=== PATIENT | male | born 1945 | race Caucasian/White ===

== ENCOUNTER 2020-03-13 10:09 | Outpatient (REF) | payer MEDICARE, OTHER, SELFPAY | END 2020-03-13 10:10 | disposition home or self-care (01) | LOC: HO.LAB 10:09 | PROVIDERS: Visit Provider Internal Medicine | DX: Z20.828 Contact with and (suspected) exposure to other viral communicable diseases (principal) | CPT/HCPCS: U0003 ==

== ENCOUNTER 2021-07-15 06:24 | Day surgery (SDC) | payer MEDICARE, OTHER, SELFPAY ==
[2021-07-09 11:16] VITALS: BMI 26.8
--- NOTE | 2021-07-11 12:48 | MHC.SHP ---
Pre-Procedural Eval Section A Date of Service: 07/11/21 The patient is an INPATIENT: No Changes since office visit: No Cold of Flu in the past 2 weeks, No New Medical Problems, No Changes in Medication and No Patient answered all questions The History & Physical has been completed within 30 days and I have reviewed it.: Yes Section B Chief Complaint: cataract right eye Allergies: Allergies Allergy/AdvReac Type Severity Reaction Status Date / Time thiopental [From Pentothal] AdvReac During Verified 07/09/21 11:13 Dental Surgery- Could not wake up - years ago Black fly Bites Allergy Swelling Uncoded 07/09/21 11:14 Plan Diagnosis/Plan: Unchanged I have reviewed the history and physical and performed a pertinent physical examination on my patient. No changes have occurred unless specified.
[2021-07-15 07:03] VITALS: BP 151/61; PULSE 61; RESP 18; TEMP 36.2; O2SAT 98
--- NOTE | 2021-07-15 07:10 | HO.ANESPROP2 ---
HPI - Anesthesia Eval Consult details Narrative: Right eye cataract [facility] Past Medical History Medical History (Updated 07/09/21 @ 09:01 by Joycelyn Kilpatrick RN) Aortic valve stenosis Bilateral cataracts CAD (coronary artery disease) GERD (gastroesophageal reflux disease) HTN (hypertension) Mixed hyperlipidemia Myocardial infarction Family History Family history of problems with anesthesia: No Surgical History Surgical History (Updated 07/09/21 @ 09:01 by Joycelyn Kilpatrick RN) Hx of colonoscopy S/P triple vessel bypass History of Problems with Anesthesia: No Social History Social History Are you a primary healthcare administration intern to a significant other at home: No Do you presently have visiting nurse or other home services: No Patient Tobacco Use Status: Former Tobacco user Quit Date: 25 yrs ago Tobacco use type: Cigarette Use of substances other than those prescribed or required for medical reasons: No Have you been hit, kicked, punched, or otherwise hurt by someone within the past year? If so, by whom?: No Are you DNR?: No Advance Directives: No Advance Directives Information Provided: No Advance Directives on File: No Recently lost weight without trying: No Eating poorly because of decreased appetite: No Nutrition Risks: No Nutritional Risk Meds Allergies Allergy/AdvReac Type Severity Reaction Status Date / Time thiopental [From Pentothal] AdvReac During Verified 07/09/21 11:13 Dental Surgery- Could not wake up - years ago Black fly Bites Allergy Swelling Uncoded 07/09/21 11:14 Active Medications: Current Medications Cyclopentolate HCl (Cyclopentolate 1 % Ophth Estefani 2 Ml Drpbtl) 1 drop EYE-RIGHT Q5M FELIX Stop: 07/15/21 07:26 Lactated Ringer's (Lr) 500 mls @ 50 mls/hr IVCONT .Q10H FELIX Ketorolac Tromethamine (Ketorolac Tromethamine 0.5% Op 3 Ml Drops) 1 drop EYE-RIGHT Q5M FELIX Stop: 07/15/21 07:26 Moxifloxacin HCl (Moxifloxacin Hcl 0.5 % Oph Estefani 3 Ml Drpbtl) 1 drop EYE-RIGHT POSTOP ONE Stop: 07/15/21 07:03 Phenylephrine HCl (Phenylephrine Hcl 2.5% Oph Estefani 2 Ml Bottle) 1 drop EYE-RIGHT Q5M FELIX Stop: 07/15/21 07:26 Povidone Iodine (Povidone Iodine 5 % Ophth Soln 30 Ml Bottle) 1 appl EYE-RIGHT PREOP PRN PRN Reason: Pre-Op Surgical Implant Prophy Tetracaine HCl (Tetracaine Hcl/Pf 0.5% Oph Estefani 4 Ml Drops) 1 drop EYE-RIGHT PREOP ONE Stop: 07/15/21 07:03 Triamcinolone Acetonide (Triamcinolone Acetonide 40 Mg/Ml Vial) 40 mg IM POSTOP ONE Stop: 07/15/21 07:03 Tropicamide (Tropicamide 1 % Ophth Estefani 3 Ml Btl) 1 drop EYE-RIGHT Q5M FELIX Stop: 07/15/21 07:26 Home Medications Medication Instructions Recorded Confirmed Last Taken Type aspirin 81 mg tablet,delayed 81 mg PO DAILY 07/09/21 07/09/21 Unknown History release atenolol 25 mg tablet 1 tab PO DAILY 07/09/21 07/09/21 Unknown History atorvastatin 40 mg tablet 1 tab PO DAILY 07/09/21 07/09/21 Unknown History famotidine 20 mg tablet 20 mg PO DAILY PRN 07/09/21 07/09/21 Unknown History Exam Exam Date and Time: July 15, 2021 0710 Height,Weight and Vital Signs: Height 6 ft Weight 89.811 kg Last Vital Signs Temp 97.2 F 07/15/21 07:03 Pulse 61 07/15/21 07:03 Resp 18 07/15/21 07:03 BP 151/61 H 07/15/21 07:03 Pulse Ox 98 07/15/21 07:03 Airway Mallampati Class: II TM Dist: >3cm Neck ROM: Full Loose/Missing/Broken Teeth: No Heart: rrr+s1s2 Lungs: cta b/l Assessment and Plan Final Anesthetic Review Family History of Problems with Anesthesia: No History of Problems with Anesthesia: No NPO: Yes ASA Class: III Final Preanesthetic Review: No Changes in Pt Med Stat, Meds/Allgs Chart Reviewed, Consent Obtained/Reviewed and Anes Risks/Benef Reviewed Patient Risk: Intermediate Procedure Risk: Low Assessment/Block/Sedation in SS: Assess/Block/Sedation-SS Anesthetic Plan Anesthetic Plan: MAC: and Agree w/ Assess. and Plan Disposition: Standard PACU
[2021-07-15] MEDS: Tetracaine HCl/PF 0.5% Oph Sol 4 ML DROPS 1 DROP EYE-RIGHT (07:11)
[2021-07-15] MEDS: Tropicamide 1 % Ophth Sol 3 ML BTL 1 DROP EYE-RIGHT ×3 (07:13→07:19)
[2021-07-15] MEDS: Lactated Ringers 500 ML 50 ML IVCONT (07:15)
[2021-07-15] MEDS: Phenylephrine HCL 2.5% Oph SoL 2 ML BOTTLE 1 DROP EYE-RIGHT ×3 (07:15→07:21)
--- NOTE | 2021-07-15 08:29 | P.PCNO_ITS ---
Ophthalmology Procedure Procedure Date of Service: 07/15/21 Ophthalmology Viscoelastic: Healon Duet Dual Pack Pro Ophthalmology Lenses: TECNIS [id number] (23.5) Procedure Notes: PREOPERATIVE DIAGNOSIS: Decreased visual acuity right eye secondary to cataract POSTOPERATIVE DIAGNOSIS: Same PROCEDURE: Right cataract extraction with multifocal intraocular lens insertion SURGEON: Ray Cruz M.D. ANESTHESIA: Topical/MAC ESTIMATED BLOOD LOSS: None COMPLICATIONS: None After obtaining informed consent, the patient was brought to the operating room suite and placed in the supine position. After adequate sedation per anesthesia, topical drops of Tetracaine were given to the right eye. The eye was then prepped and draped in the usual sterile fashion. The operating room microscope was then positioned over the operative eye and a lid speculum placed. A paracentesis was created. Viscoelastic was then instilled into the anterior chamber. A three plane incision was then created temporally, utilizing a 2.85 mm keratome. Capsulotomy forceps were then utilized to create a circular tear capsulotomy. Hydrodissection and hydrodelineation were carried out until adequate mobilization of the nucleus occurred. Phacoemulsification was then utilized to remove the dense central n ucleus followed by removal of the cortical material utilizing the automated aspiration irrigation unit. Viscoelastic was instilled into the posterior capsular bag followed by placement of a multifocal posterior chamber intraocular lens without difficulty. The residual Viscoelastic was then removed utilizing the automated IA machine. The wound was checked and found to be watertight. The patient tolerated the procedure well and the lid speculum was removed. Intracameral injection of Vigamox 0.1 mL followed by a subtenon injection of Kenalog-40 0.2 mL were administered. The patient will be seen in the a.m.
[2021-07-15 09:06] VITALS: BP 140/70; PULSE 58; RESP 16; TEMP 36.3; O2SAT 98
== END 2021-07-15 09:09 | disposition home or self-care (01) ==
PROVIDERS: Visit Provider Ophthalmology
PROC: (CPT 66984; principal; 2021-07-15 08:20)
DX: H25.11 Age-related nuclear cataract, right eye (principal); H52.4 Presbyopia; Z83.511 Family history of glaucoma; I25.110 Atherosclerotic heart disease of native coronary artery with unstable angina pectoris; Z95.1 Presence of aortocoronary bypass graft; I10 Essential (primary) hypertension; Z79.899 Other long term (current) drug therapy; Z79.82 Long term (current) use of aspirin; Z87.891 Personal history of nicotine dependence
CPT/HCPCS: 66984; J2250; J3010; J3300; V2788

== ENCOUNTER 2021-07-29 07:34 | Day surgery (SDC) | payer MEDICARE, OTHER, SELFPAY ==
[2021-07-09 11:26] VITALS: BMI 26.8
--- NOTE | 2021-07-26 08:53 | HO.ANESPROP2 ---
Documented by User: Ivonne Osei NP 07/26/21 08:54 HPI - Anesthesia Eval Consult details Narrative: 76yo M for Left Cataract Extraction IOL Insertion PCP cleared Right eye 07/15/21 with MAC: Fent 25, Midaz 2 PMFSH Past Medical History Medical History Aortic valve stenosis Bilateral cataracts CAD (coronary artery disease) GERD (gastroesophageal reflux disease) HTN (hypertension) Mixed hyperlipidemia Myocardial infarction Family History Family history of problems with anesthesia: No Surgical History Surgical History (Updated 07/09/21 @ 09:01 by Joycelyn Kilpatrick, ALLAN) Hx of colonoscopy S/P triple vessel bypass History of Problems with Anesthesia: No Social History Social History Are you a primary hemodialysis patient care specialist to a significant other at home: No Do you presently have visiting nurse or other home services: No Patient Tobacco Use Status: Former Tobacco user Quit Date: 25 yrs ago Tobacco use type: Cigarette Use of substances other than those prescribed or required for medical reasons: No Have you been hit, kicked, punched, or otherwise hurt by someone within the past year? If so, by whom?: No Are you DNR?: No Advance Directives: No Advance Directives Information Provided: No Advance Directives on File: No Recently lost weight without trying: No Eating poorly because of decreased appetite: No Nutrition Risks: No Nutritional Risk Meds Allergies Allergy/AdvReac Type Severity Reaction Status Date / Time thiopental [From Pentothal] AdvReac Severe During Verified 07/15/21 07:29 Dental Surgery- Could not wake up - years ago Black fly Bites Allergy Swelling Uncoded 07/09/21 11:14 Home Medications Medication Instructions Recorded Confirmed Last Taken Type aspirin 81 mg tablet,delayed 81 mg PO DAILY 07/09/21 07/09/21 Unknown History release atenolol 25 mg tablet 1 tab PO DAILY 07/09/21 07/09/21 Unknown History atorvastatin 40 mg tablet 1 tab PO DAILY 07/09/21 07/09/21 Unknown History famotidine 20 mg tablet 20 mg PO DAILY PRN 07/09/21 07/09/21 Unknown History Exam Exam Date and Time: July 26, 2021 0853 Height,Weight and Vital Signs: Height 6 ft Weight 89.811 kg Assessment and Plan Assessment Anesthesia Assessment: Chart Reviewed Final Anesthetic Review Family History of Problems with Anesthesia: No History of Problems with Anesthesia: No Documented by User: Jose Proctor MD 07/29/21 07:20 [facility] Past Medical History Medical History Aortic valve stenosis Bilateral cataracts CAD (coronary artery disease) GERD (gastroesophageal reflux disease) HTN (hypertension) Mixed hyperlipidemia Myocardial infarction Surgical History Surgical History (Updated 07/09/21 @ 09:01 by Joycelyn Kilpatrick RN) Hx of colonoscopy S/P triple vessel bypass Social History Social History Are you a primary hemodialysis patient care specialist to a significant other at home: No Do you presently have visiting nurse or other home services: No Patient Tobacco Use Status: Former Tobacco user Quit Date: 25 yrs ago Tobacco use type: Cigarette Use of substances other than those prescribed or required for medical reasons: No Have you been hit, kicked, punched, or otherwise hurt by someone within the past year? If so, by whom?: No Are you DNR?: No Advance Directives: No Advance Directives Information Provided: No Advance Directives on File: No Recently lost weight without trying: No Eating poorly because of decreased appetite: No Nutrition Risks: No Nutritional Risk Meds Allergies Allergy/AdvReac Type Severity Reaction Status Date / Time thiopental [From Pentothal] AdvReac Severe During Verified 07/15/21 07:29 Dental Surgery- Could not wake up - years ago Black fly Bites Allergy Swelling Uncoded 07/09/21 11:14 Home Medications Medication Instructions Recorded Confirmed Last Taken Type aspirin 81 mg tablet,delayed 81 mg PO DAILY 07/09/21 07/09/21 Unknown History release atenolol 25 mg tablet 1 tab PO DAILY 07/09/21 07/09/21 Unknown History atorvastatin 40 mg tablet 1 tab PO DAILY 07/09/21 07/09/21 Unknown History famotidine 20 mg tablet 20 mg PO DAILY PRN 07/09/21 07/09/21 Unknown History Exam Airway Mallampati Class: II TM Dist: >3cm Neck ROM: Full Loose/Missing/Broken Teeth: No Heart: rrr+s1s2 Lungs: cta b/l Assessment and Plan Assessment Anesthesia Assessment: Anesthesia Plan Discussed Final Anesthetic Review NPO: Yes ASA Class: III Final Preanesthetic Review: No Changes in Pt Med Stat, Meds/Allgs Chart Reviewed, Consent Obtained/Reviewed and Anes Risks/Benef Reviewed Patient Risk: Intermediate Procedure Risk: Low Assessment/Block/Sedation in SS: Assess/Block/Sedation-SS Anesthetic Plan Anesthetic Plan: MAC: and Agree w/ Assess. and Plan Disposition: Standard PACU
--- NOTE | 2021-07-26 13:18 | MHC.SHP ---
Pre-Procedural Eval Section A Date of Service: 07/26/21 The patient is an INPATIENT: No Changes since office visit: No Cold of Flu in the past 2 weeks, No New Medical Problems, No Changes in Medication and No Patient answered all questions The History & Physical has been completed within 30 days and I have reviewed it.: Yes Section B Chief Complaint: cataract left eye Allergies: Allergies Allergy/AdvReac Type Severity Reaction Status Date / Time thiopental [From Pentothal] AdvReac Severe During Verified 07/15/21 07:29 Dental Surgery- Could not wake up - years ago Black fly Bites Allergy Swelling Uncoded 07/09/21 11:14 Plan Diagnosis/Plan: Unchanged I have reviewed the history and physical and performed a pertinent physical examination on my patient. No changes have occurred unless specified.
[2021-07-29] MEDS: Tetracaine HCl/PF 0.5% Oph Sol 4 ML DROPS 1 DROP EYE-LEFT (07:42)
[2021-07-29 07:50] VITALS: BP 172/84; PULSE 64; RESP 16; TEMP 36.3; O2SAT 97
[2021-07-29] MEDS: Lactated Ringers 500 ML 50 ML IV (07:58)
[2021-07-29] MEDS: Tropicamide 1 % Ophth Sol 3 ML BTL 1 DROP EYE-LEFT ×3 (08:00→08:07)
[2021-07-29] MEDS: Phenylephrine HCL 2.5% Oph SoL 2 ML BOTTLE 1 DROP EYE-LEFT ×3 (08:02→08:10)
--- NOTE | 2021-07-29 08:48 | HO.PNOPHT ---
Ophthalmology Procedure Procedure Date of Service: 07/29/21 Ophthalmology Viscoelastic: Healon Duet Dual Pack Pro Ophthalmology Lenses: TECNIS [id number] (24.5) Procedure Notes: PREOPERATIVE DIAGNOSIS: Decreased visual acuity left eye secondary to cataract POSTOPERATIVE DIAGNOSIS: Same PROCEDURE: Left cataract extraction with multifocal intraocular lens insertion SURGEON: Ray Cruz M.D. ANESTHESIA: Topical/MAC ESTIMATED BLOOD LOSS: None COMPLICATIONS: None After obtaining informed consent, the patient was brought to the operation room suite and placed in the supine position. After adequate sedation per anesthesia, topical drops of Tetracaine were given to the left eye. The eye was then prepped and draped in the usual sterile fashion. The operating room microscope was then positioned over the operative eye and a lid speculum placed. A paracentesis was created. Viscoelastic was then instilled into the anterior chamber. A three plane incision was then created temporally, utilizing a 2.85 mm keratome. Capsulotomy forceps were then utilized to create a circular tear capsulotomy. Hydrodissection and hydrodelineation were carried out until adequate mobilization of the nucleus occurred. Phacoemulsification was then utilized to remove the dense central nucleus followed by removal of the cortical material utilizing the automated aspiration irrigation unit. Viscoelastic was instilled into the posterior capsular bag followed by placement of a multifocal posterior chamber intraocular lens without difficulty. The residual Viscoelastic was then removed utilizing the automated IA machine. The wound was check and found to be watertight. The patient tolerated the procedure well and the lid speculum was removed. Intracameral injection of Vigamox 0.1 mL followed by a subtenon injection of Kenalog-40 0.2 mL were administered. The patient will be seen in the a.m.
[2021-07-29 09:08] VITALS: BP 151/90; PULSE 56; RESP 18; TEMP 36.3; O2SAT 97
== END 2021-07-29 09:28 | disposition home or self-care (01) ==
PROVIDERS: Visit Provider Ophthalmology
PROC: (CPT 66984; principal; 2021-07-29 08:40)
DX: H25.12 Age-related nuclear cataract, left eye (principal); H52.4 Presbyopia; H31.002 Unspecified chorioretinal scars, left eye; Z83.511 Family history of glaucoma; I25.10 Atherosclerotic heart disease of native coronary artery without angina pectoris; Z95.1 Presence of aortocoronary bypass graft; I25.2 Old myocardial infarction; E78.2 Mixed hyperlipidemia; K21.9 Gastro-esophageal reflux disease without esophagitis; R73.01 Impaired fasting glucose; I10 Essential (primary) hypertension; Z79.899 Other long term (current) drug therapy; Z79.82 Long term (current) use of aspirin; Z87.891 Personal history of nicotine dependence
CPT/HCPCS: 66984; J2250; J3010; J3300; V2788

== ENCOUNTER 2022-04-30 12:16 | Outpatient (REF) | payer MEDICARE, OTHER, SELFPAY ==
--- NOTE | ~2022-04-30 | XR_ITS ---
EXAMINATION: KNEE X-RAY CLINICAL INFORMATION: Pain COMPARISON: None TECHNIQUE: Standing AP view of both knees and lateral and sunrise view of the left knee FINDINGS: Left: There is varus angulation. There is arthritis at the medial femoral tibial and patellofemoral joints. There is an osteophyte at the quadriceps tendon insertion to the patella. There is a small to moderate joint effusion. No fracture or dislocation. Standing AP view of the right knee demonstrates mild arthritis at the medial femoral tibial joint XR/XR knee LT 2V IMPRESSION: Left knee: Arthritis, joint effusion and varus angulation.
--- NOTE | ~2022-04-30 | XR_ITS ---
EXAMINATION: KNEE X-RAY CLINICAL INFORMATION: Pain COMPARISON: None TECHNIQUE: Standing AP view of both knees and lateral and sunrise view of the left knee FINDINGS: Left: There is varus angulation. There is arthritis at the medial femoral tibial and patellofemoral joints. There is an osteophyte at the quadriceps tendon insertion to the patella. There is a small to moderate joint effusion. No fracture or dislocation. Standing AP view of the right knee demonstrates mild arthritis at the medial femoral tibial joint XR/XR knee standing BI IMPRESSION: Left knee: Arthritis, joint effusion and varus angulation.
== END 2022-04-30 12:17 | disposition home or self-care (01) ==
LOC: HO.HOSX 12:16
PROVIDERS: Visit Provider Physician Assistant
DX: M17.12 Unilateral primary osteoarthritis, left knee (principal); M25.561 Pain in right knee
CPT/HCPCS: 20610; 73560; 73565; 99202; J1040

== ENCOUNTER 2022-08-11 08:07 | Outpatient (REF) | payer MEDICARE, OTHER, SELFPAY ==
--- NOTE | ~2022-08-11 | XR_ITS ---
EXAMINATION: XR ANKLE, LEFT CLINICAL INFORMATION: Pain. COMPARISON: None available. TECHNIQUE: AP, lateral, and mortise views of the left ankle. FINDINGS: Bony alignment and mineralization are normal. The ankle mortise is intact. No fracture, dislocation or left ankle joint effusion is seen. Boehler's angle is normal. There are small posterior and moderate plantar calcaneal spurs. No focal soft tissue swelling, gas or foreign body is seen. XR/XR ankle LT min 3V IMPRESSION: 1. No fracture, dislocation or left ankle joint effusion is seen. 2. There are calcaneal spurs.
== END 2022-08-11 08:08 | disposition home or self-care (01) ==
LOC: HO.HOSX 08:07
PROVIDERS: Visit Provider Physician Assistant
DX: M17.12 Unilateral primary osteoarthritis, left knee (principal)
CPT/HCPCS: 20610; 73610; 99212; J1040

== ENCOUNTER → 2022-09-05 12:52 | Outpatient (BNVA) | payer MEDICARE, OTHER, SELFPAY | PROVIDERS: PCP Internal Medicine; Visit Provider Physician Assistant ==

== ENCOUNTER 2022-09-12 11:00 | Outpatient (RCR) | payer OTHER, MEDICARE, SELFPAY | END 2022-09-18 12:50 | disposition home or self-care (01) | LOC: HO.PT 11:00 | PROVIDERS: PCP Internal Medicine; Visit Provider Internal Medicine | DX: S13.4XXA Sprain of ligaments of cervical spine, initial encounter (principal) | CPT/HCPCS: 97014; 97110; 97112; 97140; 97162; 97530 ==

== ENCOUNTER 2022-09-14 15:45 | Emergency (ER) | payer MEDICARE, OTHER, SELFPAY ==
--- NOTE | ~2022-09-14 | CT_ITS ---
EXAMINATION: CT ANGIOGRAM HEAD CT ANGIOGRAM NECK CLINICAL INFORMATION: Reason for Exam b/l blurry vision, vallejo, neck pain COMPARISON: Earlier same day noncontrast head CT TECHNIQUE: Initial noncontrast singeing torch operator imaging of the head and neck was performed. Comparison is made with noncontrast head CT from earlier today. Test bolus sequences followed by intravenous administration 70 mL of Omnipaque 350. Helical imaging was performed in the axial plane from the aortic arch to the skull vertex. Delayed postcontrast imaging of the head was also performed. The data was processed at the industrial engineering technologist's workstation for generation of MIP sequences. Angled MIPs and volume rendered reformatted images were also generated at an offline 3D workstation. Stenoses are assessed in accordance with NASCET criteria unless otherwise indicated. DLP: 1619.61 mGy-cm This CT examination was performed using dose optimization techniques as appropriate, variously including the following: *Automated exposure control. *Adjustment of mA and/or kV according to patient size (this includes techniques or standardized protocols for targeted exams where dose is matched to indication/reason for exam; i.e. extremities or head). *Use of iterative reconstruction technique. FINDINGS: CT Head: There is no evidence of acute intracranial hemorrhage or edematous territorial infarction. There is no abnormal attenuation within the brain parenchyma. Shore-white matter differentiation is preserved. The ventricles are normal in size and configuration. No evidence for obstructive hydrocephalus. No abnormal mass effect or midline shift. No extra-axial fluid collections. No pathologic intra-axial enhancement or regional oligemia. No acute soft tissue or osseous abnormalities. The mastoid air cells and paranasal sinuses are clear. Several maxillary dental caries and periapical lucencies. CT Neck: The thyroid gland and remaining cervical soft tissues are within normal limits. Advanced multilevel cervical spondylosis. Anterolisthesis of C3 on C4 and C4 on C5. CT Upper Chest: The visualized lung apices and upper mediastinum are within normal limits. Status post median sternotomy and coronary artery bypass grafting. Neck CTA: Aortic Arch: Normal contour and caliber. Classic 3 vessel branching pattern of the aortic arch. Great Vessel Origins: No significant stenosis of the branch origins. Right Common Carotid Artery: No focal stenosis or occlusion. Cervical Right Internal Carotid Artery: Mild calcific atherosclerotic disease of the carotid bulb and proximal internal carotid artery without flow-limiting stenosis. Left Common Carotid Artery: No focal stenosis or occlusion. Cervical Left Internal Carotid Artery: Calcific atherosclerotic disease of the carotid bulb and proximal internal carotid artery causing less than 50% stenosis. Cervical Right Vertebral Artery: No focal stenosis or occlusion. Cervical Left Vertebral Artery: No focal stenosis or occlusion. Brain CTA: Intracranial Internal Carotid Arteries: Calcific atherosclerotic disease of the intracranial internal carotid arteries without occlusion or flow-limiting stenosis. 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 Normal opacification of the distal KULDIP segments. Left Anterior Cerebral Artery: Large left A1 segment supplies the bilateral A2 segments. Normal opacification of the distal KULDIP segments. Anterior Communicating Artery: Normal. Right Middle Cerebral Artery: Normal M1 segment of the MCA without focal stenosis or occlusion. Normal arborization of the distal segments. Left Middle Cerebral Artery: Normal M1 segment of the MCA without focal stenosis or occlusion. Normal arborization of the distal segments. Right Vertebral Artery: Normal V4 segment. Left Vertebral Artery: Normal V4 segment. Basilar Artery: The vertebrobasilar system is congenitally diminutive related to configuration of the CUT LACE MACHINE OPERATOR complexes. There is mild irregularity and stenosis of the proximal basilar artery. No high-grade narrowing. Normal appearance of the proximal superior cerebellar arteries. Right Posterior Cerebral Artery: configuration. Normal opacification of the distal CUT LACE MACHINE OPERATOR segments. Left Posterior Cerebral Artery: configuration. Normal opacification of the distal CUT LACE MACHINE OPERATOR segments. Normal opacification of the superior sagittal, straight, transverse, and sigmoid sinuses. CT/CT angio head neck stroke IMPRESSION: No arterial high grade stenosis or large vessel occlusion in the head or neck. Above impression was communicated to Dr Macias on 09/14/2022 at 4:24 PM
--- NOTE | ~2022-09-14 | CT_ITS ---
EXAMINATION: CT HEAD WITHOUT CONTRAST (STROKE PROTOCOL) CLINICAL INFORMATION: Stroke protocol. History of blurry vision, headache, neck pain. COMPARISON: None available. TECHNIQUE: Contiguous axial imaging was performed from the skull base to vertex without intravenous administration of contrast. This CT examination was performed using dose optimization techniques as appropriate, variously including the following: *Automated exposure control *Adjustment of mA and/or kV according to patient size (this includes techniques or standardized protocols for targeted exams where dose is matched to indication/reason for exam; i.e. extremities or head) *Use of iterative reconstruction technique DLP: 750 mGy-cm FINDINGS: No acute findings. The bhakta-white matter differentiation is well preserved. No evidence of an acute major vascular territory infarction. No intracranial hemorrhage, extra-axial fluid collection, focal mass effect or midline shift. The ventricles have normal size and configuration; no hydrocephalus. The brainstem and cerebellum have a normal appearance. The cerebellar tonsils are in normal position. The calvarium is intact. The visualized paranasal sinuses, mastoid air cells and middle ear cavities are well aerated. The orbits and temporomandibular joints are unremarkable. CT/CT head for stroke IMPRESSION: No acute intracranial pathology. This critical result was discussed with Dr. Wheeler at 4:07 pm on 09/14/2022. It was ascertained that the content and urgency of the report was understood at the time of direct communication.
[2022-09-14 15:47] VITALS: BP 177/84; PULSE 74; RESP 18; TEMP 36; O2SAT 96; BMI 27.1
--- NOTE | 2022-09-14 15:47 | ED.GENADULT ---
HPI - General Adult General Chief complaint: Eye Problems <DAMIAN Edmond - Last Filed: 09/14/22 16:04> Stated complaint: losing vision <DAMIAN Edmond - Last Filed: 09/14/22 16:04> Source: patient <Bess Macias MD - Last Filed: 09/14/22 19:39> Mode of arrival: ambulatory <Bess Macias MD - Last Filed: 09/14/22 19:39> History of Present Illness HPI narrative: 86-year-old male with significant history of CAD presents with concerns regarding sticky eyes and blurred vision that occurred after working outside in the [employer] and he became concerned that he might be having stroke-like symptoms. He denies any associated speech or hearing changes denies any new symptoms of numbness/tingling/weakness into a unilateral side. Patient denies any fever, chills, shortness of breath chest pain/palpitations. <Bess Macias MD - Last Filed: 09/14/22 19:39> Related Data Home medications: Home Medications Medication Instructions Recorded Confirmed aspirin 81 mg tablet,delayed 81 mg PO DAILY 07/09/21 07/09/21 release atenolol 25 mg tablet 1 tab PO DAILY 07/09/21 07/09/21 atorvastatin 40 mg tablet 1 tab PO DAILY 07/09/21 07/09/21 famotidine 20 mg tablet 20 mg PO DAILY PRN Acid Reflux 07/09/21 07/09/21 Previous Rx's Medication Instructions Recorded lorazepam 0.5 mg tablet (Ativan) 0.5 mg PO ONCE PRN anxiety #1 tab 09/05/22 <DAMIAN Edmond - Last Filed: 09/14/22 16:04> Allergies/adverse reactions: Allergies Allergy/AdvReac Type Severity Reaction Status Date / Time thiopental [From Pentothal] AdvReac Severe During Verified 09/14/22 15:47 Dental Surgery- Could not wake up - years ago Black fly Bites Allergy Swelling Uncoded 08/11/22 09:55 <DAMIAN Edmond - Last Filed: 09/14/22 16:04> Review of Systems Review of Systems: Pertinent positives and negatives as stated in HPI <Bess Macias MD - Last Filed: 09/14/22 19:39> PMFSH Past Medical History Source: nursing notes reviewed <Bess Macias MD - Last Filed: 09/14/22 19:39> Medical History: Medical History Aortic valve stenosis Bilateral cataracts CAD (coronary artery disease) GERD (gastroesophageal reflux disease) HTN (hypertension) Mixed hyperlipidemia Myocardial infarction <DAMIAN Edmond - Last Filed: 09/14/22 16:04> Surgical History: Surgical History Hx of colonoscopy S/P triple vessel bypass <DAMIAN Edmond - Last Filed: 09/14/22 16:04> Social History Social History: Social History Are you a primary care support representative to a significant other at home: No Do you presently have visiting nurse or other home services: No Alcohol intake: current Alcohol intake frequency: a few times a week Alcohol type: hard liquor Patient Tobacco Use Status: Former Tobacco user Quit Date: 25 yrs ago Tobacco use type: Cigarette Use of substances other than those prescribed or required for medical reasons: No Advance Directives: No Advance Directives Information Provided: No Current occupational status: retired Current occupation: right hand dominant <DAMIAN Edmond - Last Filed: 09/14/22 16:04> Physical Exam ED Vital Signs: Vital Signs - 24 hr 09/14/22 15:47 09/14/22 16:16 09/14/22 19:06 Temperature 96.8 F 98.1 F Pulse Rate 74 71 58 Respiratory Rate 18 Blood Pressure 177/84 H 142/77 H 172/83 H Pulse Oximetry 96 96 Oxygen Delivery Method Room Air Room Air 09/14/22 19:06 09/14/22 19:07 Temperature Pulse Rate 65 65 Respiratory Rate Blood Pressure 164/83 H 164/77 H Pulse Oximetry Oxygen Delivery Method BMI result Body Mass Index 27.1 <DAMIAN Edmond - Last Filed: 09/14/22 16:04> Vital Signs - 24 hr 09/14/22 15:47 09/14/22 16:16 09/14/22 19:06 Temperature 96.8 F 98.1 F Pulse Rate 74 71 58 Respiratory Rate 18 Blood Pressure 177/84 H 142/77 H 172/83 H Pulse Oximetry 96 96 Oxygen Delivery Method Room Air Room Air 09/14/22 19:06 09/14/22 19:07 Temperature Pulse Rate 65 65 Respiratory Rate Blood Pressure 164/83 H 164/77 H Pulse Oximetry Oxygen Delivery Method BMI result Body Mass Index 27.1 VITAL SIGNS: Reviewed. GENERAL: Well developed, well nourished, in no acute distress. HEAD: Normocephalic/atraumatic EYES: PERRLA, EOMI, no nystagmus EARS: Ext canals without abnormality NOSE: Nares patent bilateral OROPHARYNX: no oral lesions noted, posterior pharynx clear NECK: Supple, no adenopathy LUNGS: Normal breath sounds. No adventitious sounds or accessory muscle use. SpO2<97> CARDIOVASCULAR: Regular rate and rhythm without noted murmurs, no JVD or lower extremity edema. ABDOMEN: Soft, non-tender, non-distended with bowel sounds. MUSCULOSKELETAL: No tenderness, deformities, or effusions noted on gross inspection. EXTREMITIES: No cyanosis, clubbing or edema. SKIN: Inspection of the skin reveals no rashes NEUROLOGIC: Alert and oriented x 4. Strength and sensation to light touch were grossly intact x 4, no facial asymmetry, no pronator drift, cranial nerves 2-12 are grossly intact, patient ambulates with a steady gait there is no truncal ataxia. <Bess Macias MD - Last Filed: 09/14/22 19:39> Course Course Course Narrative: RME: 77-year-old male with a past medical history of aortic valve stenosis, CAD, GERD, HTN, HLD, SC, cataract surgery ', complaining of bilateral blurry vision > right since waking up from nap at 15:00. States he was transplant taking a tree this afternoon, took a nap at 13:00 and woke up at 15:00 with new symptoms. Reports acute on chronic neck pain which he is going to physical therapy for, most recently had physical therapy/neck manipulation on Thursday. Also reports headaches and intermittent foot paresthesias. Takes ASA. Reports recently saw electronic specialist who told patient to stop going to physical therapy until he obtains MRI Ambulating with steady gait, no focal weakness EKG, labs, head/CTA head and neck stroke protocol ordered, charge nurse and ED attending aware Full HPI, ROS and PE to be performed by primary ED provider. <DAMIAN Edmond - Last Filed: 09/14/22 16:04> Medications Administered Discontinued Medications Generic Name Dose Route Start Last Admin Trade Name Freq PRN Reason Stop Dose Admin Iohexol 100 ml 09/14/22 16:08 09/14/22 16:08 Iohexol 350 Mg/Ml 100 Ml Infus..Btl IV 09/14/22 16:09 70 ml ONCE ONE Administration <DAMIAN Edmond - Last Filed: 09/14/22 16:04> Medications Administered Discontinued Medications Generic Name Dose Route Start Last Admin Trade Name Freq PRN Reason Stop Dose Admin Iohexol 100 ml 09/14/22 16:08 09/14/22 16:08 Iohexol 350 Mg/Ml 100 Ml Infus..Btl IV 09/14/22 16:09 70 ml ONCE ONE Administration <Bess Macias MD - Last Filed: 09/14/22 19:39> Medical Decision Making Medical Decision Making MDM Narrative: 86-year-old male with history and clinical presentation not consistent with focal deficit, macular degeneration, acute angle glaucoma, cataracts. Basic labs, visual acuity and EKG were obtained. I reviewed all investigations to include imaging studies and my interpretation is that patient has visual difficulties are secondary to pine pollen exposure and there is no evidence to suggest infection, anemia, electrolyte abnormalities or intracranial abnormalities. Patient is otherwise stable, and ready to go home. He is discharged home in stable condition. <Bess Macias MD - Last Filed: 09/14/22 19:39> Differential Diagnosis Please see the discussion above <Bess Macias MD - Last Filed: 09/14/22 19:39> Lab Data Please see the discussion above <Bess Macias MD - Last Filed: 09/14/22 19:39> Result Diagrams: 09/14/22 16:51 09/14/22 16:51 <DAMIAN Edmond - Last Filed: 09/14/22 16:04> Labs: Lab Results 09/14/22 09/14/22 09/14/22 Range/Units 16:13 16:51 16:51 WBC 4.9 (4.8-10.8) X10*3/uL RBC 3.93 L (4.60-5.80) X10*6/uL Hgb 12.3 L (14.0-18.0) g/dl Hct 37.2 L (42.0-52.0) % MCV 94.7 (80.0-98.0) fL MCH 31.3 (27.0-33.0) pg MCHC 33.1 (31.0-36.0) g/dl RDW 12.7 (11.0-16.0) % Plt Count 160 (160-400) X10*3/uL MPV 9.1 L (9.4-12.4) fL Immature Gran % (Auto) 0.4 (0.0-0.4) % Neut % (Auto) 56.4 (45-73) % Lymph % (Auto) 29.5 (20-40) % Towner % (Auto) 12.1 H (2-11) % Eos % (Auto) 1.2 (0-4) % Baso % (Auto) 0.4 (0-2) % Lymph # (Auto) 1.4 (1.2-4.9) X10*3/uL Towner # (Auto) 0.6 (0.1-1.2) X10*3/uL Eos # (Auto) 0.1 (0.0-0.4) X10*3/uL Baso # (Auto) 0.0 (0.0-0.2) X10*3/uL Abs Immat Gran (auto) 0.02 (0.00-0.03) X10*3/uL Absolute Neuts (auto) 2.8 (2.0-8.3) x10*3/uL Absolute Nucleated RBC 0.000 (0.0-0.012) X10*3/uL Nucleated RBC % (auto) 0.0 (0.0-0.2) /100WBC PT 12.3 (10.0-13.1) SEC INR 1.1 (0.9-1.1) Sodium (135-145) mmol/L Potassium (3.3-5.1) mmol/L Chloride (96-108) mmol/L Carbon Dioxide (22-29) mmol/L Anion Gap (12-20) BUN (9-16) mg/dL Creatinine (0.5-1.4) mg/dL Estim Creat Clear Calc Estimated GFR POC Glucose 111 (60-115) mg/dL Random Glucose (60-115) mg/dL Calcium (8.4-10.2) mg/dL Magnesium (1.6-2.6) mg/dL Total Bilirubin (0.0-1.0) mg/dL Direct Bilirubin (0.0-0.5) mg/dL AST (5-37) U/L ALT (0-40) U/L Alkaline Phosphatase (39-117) U/L Troponin I High Sens (<3.5-35.0) ng/L Total Protein (6.5-8.0) g/dL Albumin (3.5-5.0) g/dL Urine Color Urine Appearance Urine pH (5.0-9.0) Ur Specific [place] (1.005-1.025) Urine Protein (Neg-Trace) mg/dL Urine Glucose (UA) (Negative) mg/dL Urine Ketones (Negative) mg/dL Urine Blood (Negative) Urine Nitrite (Negative) Ur Leukocyte Esterase (Negative) 09/14/22 09/14/22 09/14/22 Range/Units 16:51 16:51 19:11 WBC (4.8-10.8) X10*3/uL RBC (4.60-5.80) X10*6/uL Hgb (14.0-18.0) g/dl Hct (42.0-52.0) % MCV (80.0-98.0) fL MCH (27.0-33.0) pg MCHC (31.0-36.0) g/dl RDW (11.0-16.0) % Plt Count (160-400) X10*3/uL MPV (9.4-12.4) fL Immature Gran % (Auto) (0.0-0.4) % Neut % (Auto) (45-73) % Lymph % (Auto) (20-40) % Towner % (Auto) (2-11) % Eos % (Auto) (0-4) % Baso % (Auto) (0-2) % Lymph # (Auto) (1.2-4.9) X10*3/uL Towner # (Auto) (0.1-1.2) X10*3/uL Eos # (Auto) (0.0-0.4) X10*3/uL Baso # (Auto) (0.0-0.2) X10*3/uL Abs Immat Gran (auto) (0.00-0.03) X10*3/uL Absolute Neuts (auto) (2.0-8.3) x10*3/uL Absolute Nucleated RBC (0.0-0.012) X10*3/uL Nucleated RBC % (auto) (0.0-0.2) /100WBC PT (10.0-13.1) SEC INR (0.9-1.1) Sodium 140 (135-145) mmol/L Potassium 4.2 (3.3-5.1) mmol/L Chloride 105 (96-108) mmol/L Carbon Dioxide 28 (22-29) mmol/L Anion Gap 11 L (12-20) BUN 27 H (9-16) mg/dL Creatinine 1.05 (0.5-1.4) mg/dL Estim Creat Clear Calc 63.6 Estimated GFR > 60 POC Glucose (60-115) mg/dL Random Glucose 87 (60-115) mg/dL Calcium 8.4 (8.4-10.2) mg/dL Magnesium 2.1 (1.6-2.6) mg/dL Total Bilirubin 0.7 (0.0-1.0) mg/dL Direct Bilirubin 0.2 (0.0-0.5) mg/dL AST 21 (5-37) U/L ALT 16 (0-40) U/L Alkaline Phosphatase 84 (39-117) U/L Troponin I High Sens 7.3 (<3.5-35.0) ng/L Total Protein 5.9 L (6.5-8.0) g/dL Albumin 3.4 L (3.5-5.0) g/dL Urine Color Yellow Urine Appearance Clear Urine pH 6.5 (5.0-9.0) Ur Specific [place] >= 1.030 H (1.005-1.025) Urine Protein Negative (Neg-Trace) mg/dL Urine Glucose (UA) Negative (Negative) mg/dL Urine Ketones Negative (Negative) mg/dL Urine Blood Negative (Negative) Urine Nitrite Negative (Negative) Ur Leukocyte Esterase Negative (Negative) <Rita Pouliot, PA - Last Filed: 09/14/22 16:04> Lab Results 09/14/22 09/14/22 09/14/22 Range/Units 16:13 16:51 16:51 WBC 4.9 (4.8-10.8) X10*3/uL RBC 3.93 L (4.60-5.80) X10*6/uL Hgb 12.3 L (14.0-18.0) g/dl Hct 37.2 L (42.0-52.0) % MCV 94.7 (80.0-98.0) fL MCH 31.3 (27.0-33.0) pg MCHC 33.1 (31.0-36.0) g/dl RDW 12.7 (11.0-16.0) % Plt Count 160 (160-400) X10*3/uL MPV 9.1 L (9.4-12.4) fL Immature Gran % (Auto) 0.4 (0.0-0.4) % Neut % (Auto) 56.4 (45-73) % Lymph % (Auto) 29.5 (20-40) % Towner % (Auto) 12.1 H (2-11) % Eos % (Auto) 1.2 (0-4) % Baso % (Auto) 0.4 (0-2) % Lymph # (Auto) 1.4 (1.2-4.9) X10*3/uL Towner # (Auto) 0.6 (0.1-1.2) X10*3/uL Eos # (Auto) 0.1 (0.0-0.4) X10*3/uL Baso # (Auto) 0.0 (0.0-0.2) X10*3/uL Abs Immat Gran (auto) 0.02 (0.00-0.03) X10*3/uL Absolute Neuts (auto) 2.8 (2.0-8.3) x10*3/uL Absolute Nucleated RBC 0.000 (0.0-0.012) X10*3/uL Nucleated RBC % (auto) 0.0 (0.0-0.2) /100WBC PT 12.3 (10.0-13.1) SEC INR 1.1 (0.9-1.1) Sodium (135-145) mmol/L Potassium (3.3-5.1) mmol/L Chloride (96-108) mmol/L Carbon Dioxide (22-29) mmol/L Anion Gap (12-20) BUN (9-16) mg/dL Creatinine (0.5-1.4) mg/dL Estim Creat Clear Calc Estimated GFR POC Glucose 111 (60-115) mg/dL Random Glucose (60-115) mg/dL Calcium (8.4-10.2) mg/dL Magnesium (1.6-2.6) mg/dL Total Bilirubin (0.0-1.0) mg/dL Direct Bilirubin (0.0-0.5) mg/dL AST (5-37) U/L ALT (0-40) U/L Alkaline Phosphatase (39-117) U/L Troponin I High Sens (<3.5-35.0) ng/L Total Protein (6.5-8.0) g/dL Albumin (3.5-5.0) g/dL Urine Color Urine Appearance Urine pH (5.0-9.0) Ur Specific [place] (1.005-1.025) Urine Protein (Neg-Trace) mg/dL Urine Glucose (UA) (Negative) mg/dL Urine Ketones (Negative) mg/dL Urine Blood (Negative) Urine Nitrite (Negative) Ur Leukocyte Esterase (Negative) 09/14/22 09/14/22 09/14/22 Range/Units 16:51 16:51 19:11 WBC (4.8-10.8) X10*3/uL RBC (4.60-5.80) X10*6/uL Hgb (14.0-18.0) g/dl Hct (42.0-52.0) % MCV (80.0-98.0) fL MCH (27.0-33.0) pg MCHC (31.0-36.0) g/dl RDW (11.0-16.0) % Plt Count (160-400) X10*3/uL MPV (9.4-12.4) fL Immature Gran % (Auto) (0.0-0.4) % Neut % (Auto) (45-73) % Lymph % (Auto) (20-40) % Towner % (Auto) (2-11) % Eos % (Auto) (0-4) % Baso % (Auto) (0-2) % Lymph # (Auto) (1.2-4.9) X10*3/uL [place] # (Auto) (0.1-1.2) X10*3/uL Eos # (Auto) (0.0-0.4) X10*3/uL Baso # (Auto) (0.0-0.2) X10*3/uL Abs Immat Gran (auto) (0.00-0.03) X10*3/uL Absolute Neuts (auto) (2.0-8.3) x10*3/uL Absolute Nucleated RBC (0.0-0.012) X10*3/uL Nucleated RBC % (auto) (0.0-0.2) /100WBC PT (10.0-13.1) SEC INR (0.9-1.1) Sodium 140 (135-145) mmol/L Potassium 4.2 (3.3-5.1) mmol/L Chloride 105 (96-108) mmol/L Carbon Dioxide 28 (22-29) mmol/L Anion Gap 11 L (12-20) BUN 27 H (9-16) mg/dL Creatinine 1.05 (0.5-1.4) mg/dL Estim Creat Clear Calc 63.6 Estimated GFR > 60 POC Glucose (60-115) mg/dL Random Glucose 87 (60-115) mg/dL Calcium 8.4 (8.4-10.2) mg/dL Magnesium 2.1 (1.6-2.6) mg/dL Total Bilirubin 0.7 (0.0-1.0) mg/dL Direct Bilirubin 0.2 (0.0-0.5) mg/dL AST 21 (5-37) U/L ALT 16 (0-40) U/L Alkaline Phosphatase 84 (39-117) U/L Troponin I High Sens 7.3 (<3.5-35.0) ng/L Total Protein 5.9 L (6.5-8.0) g/dL Albumin 3.4 L (3.5-5.0) g/dL Urine Color Yellow Urine Appearance Clear Urine pH 6.5 (5.0-9.0) Ur Specific [place] >= 1.030 H (1.005-1.025) Urine Protein Negative (Neg-Trace) mg/dL Urine Glucose (UA) Negative (Negative) mg/dL Urine Ketones Negative (Negative) mg/dL Urine Blood Negative (Negative) Urine Nitrite Negative (Negative) Ur Leukocyte Esterase Negative (Negative) <Bess Macias MD - Last Filed: 09/14/22 19:39> Independent Interpretation I performed an independent interpretation of an: EKG <Bess Macias MD - Last Filed: 09/14/22 19:39> Interpretation: Sinus rhythm with first-degree AV block (there is no EKG for comparison), no STEMI, QRS/QTC are within normal limits. <Bess Macias MD - Last Filed: 09/14/22 19:39> Radiology Impression Radiologist Impression: My interpretation is in agreement with radiology's impression of the imaging studies. <Bess Macias MD - Last Filed: 09/14/22 19:39> External Record Review External record reviewed: Prior outpatient labs <Bess Macias MD - Last Filed: 09/14/22 19:39> Chronic Conditions Patient?s care impacted by: Hypertension <Bess Macias MD - Last Filed: 09/14/22 19:39> Discharge Plan Discharge Clinical Impression: Visual disturbance <DAMIAN Edmond - Last Filed: 09/14/22 16:04> Patient Disposition: Home, Self-Care <DAMIAN Edmond - Last Filed: 09/14/22 16:04> Instructions: Blurred Vision (ED) <DAMIAN Edmond - Last Filed: 09/14/22 16:04> Additional Instructions: 1. Resume all home medications as prescribed. 2. Please follow-up with your primary care provider as well as your operating room assistant in next 2-3 days. Return to the ER for any worsening symptoms. <DAMIAN Edmond - Last Filed: 09/14/22 16:04> Prescriptions: No Action atorvastatin 40 mg tablet 1 tab PO DAILY atenolol 25 mg tablet 1 tab PO DAILY aspirin [Aspir-81] 81 mg Tablet,Delayed Release (Dr/Ec) 81 mg PO DAILY famotidine 20 mg Tablet 20 mg PO DAILY PRN (Reason: Acid Reflux) lorazepam [Ativan] 0.5 mg tablet 0.5 mg PO ONCE PRN (Reason: anxiety) Qty: 1 0RF Rx Instructions: take 30 prior to MRI <DAMIAN Edmond - Last Filed: 09/14/22 16:04> Referrals: Katia Edward MD [Primary Care Provider] - <DAMIAN Edmond - Last Filed: 09/14/22 16:04>
--- NOTE | 2022-09-14 15:49 | ECG_ITS ---
Test Reason : rule out stroke Blood Pressure : / mmHG Vent. Rate : 066 BPM Atrial Rate : 066 BPM P-R Int : 250 ms QRS Dur : 086 ms QT Int : 380 ms P-R-T Axes : 069 -23 092 degrees QTc Int : 398 ms Sinus rhythm with 1st degree A-V block Nonspecific ST and T wave abnormality lateral leads Abnormal ECG No previous ECGs available Referred By: Rita Middleton Electronically Signed By:TYLOR CARRASCO
[2022-09-14] MEDS: iohexoL 350 MG/ML 100 ML INFUS..BTL IV (16:08)
[2022-09-14 16:16] VITALS: BP 142/77; PULSE 71; TEMP 36.7; O2SAT 96
[2022-09-14 16:19] LABS: Glucose, Whole Blood 111 mg/dL (60-115)
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
[2022-09-14 16:55] LABS: MANUAL DIFF FLAG NO
[2022-09-14 17:01] LABS: Basophils Percent Auto 0.4 % (0-2); Eosinophils Absolute Auto 0.1 X10*3/uL (0.0-0.4); Eosinophils Percent Auto 1.2 % (0-4); Hematocrit 37.2 % (42.0-52.0); Hemoglobin 12.3 g/dl (14.0-18.0); Imm Gran Abs Auto 0.02 X10*3/uL (0.00-0.03); Imm Gran Pct Auto 0.4 % (0.0-0.4); Lymphocytes Absolute Auto 1.4 X10*3/uL (1.2-4.9); Lymphocytes Percent Auto 29.5 % (20-40); Mean Corpuscular HGB Conc 33.1 g/dl (31.0-36.0); Mean Corpuscular Hemoglobin 31.3 pg (27.0-33.0); Mean Corpuscular Volume 94.7 fL (80.0-98.0); Mean Platelet Volume 9.1 fL (9.4-12.4); Monocytes Absolute Auto 0.6 X10*3/uL (0.1-1.2); Monocytes Percent Auto 12.1 % (2-11); Neutrophils Absolute Auto 2.8 x10*3/uL (2.0-8.3); Neutrophils Percent Auto 56.4 % (45-73); Platelet Count 160 X10*3/uL (160-400); Red Blood Count 3.93 X10*6/uL (4.60-5.80); Red Cell Distribution Width 12.7 % (11.0-16.0); White Blood Count 4.9 X10*3/uL (4.8-10.8)
[2022-09-14 17:08] LABS: INTERNATIONAL NORM RATIO 1.1 (0.9-1.1); Prothrombin Time 12.3 SEC (10.0-13.1)
[2022-09-14 17:26] LABS: Alanine Aminotransferase 16 U/L (0-40); Albumin Level 3.4 g/dL (3.5-5.0); Alkaline Phosphatase 84 U/L (39-117); Anion Gap 11 (12-20); Aspartate Amino Transferase 21 U/L (5-37); Bilirubin Direct 0.2 mg/dL (0.0-0.5); Bilirubin Total 0.7 mg/dL (0.0-1.0); Blood Urea Nitrogen 27 mg/dL (9-16); Calcium 8.4 mg/dL (8.4-10.2); Carbon Dioxide 28 mmol/L (22-29); Chloride 105 mmol/L (96-108); Creatinine Clr Calc Pharmacy 63.6; Estimated Glomerular Filt Rate > 60; Glucose Random 87 mg/dL (60-115); Magnesium 2.1 mg/dL (1.6-2.6); Potassium 4.2 mmol/L (3.3-5.1); Sodium 140 mmol/L (135-145); Total Protein 5.9 g/dL (6.5-8.0)
[2022-09-14 17:35] LABS: Troponin-I High Sensitivity 7.3 ng/L (<3.5-35.0)
[2022-09-14 19:06] VITALS: BP 164/83; BP 172/83; PULSE 58; PULSE 65
[2022-09-14 19:07] VITALS: BP 164/77; PULSE 65
[2022-09-14 19:24] LABS: Appearance Urine Clear; Color Urine Yellow; Glucose Urine UA Negative (Negative); Leukocyte Esterase Urine Negative (Negative); Nitrite Urine Negative (Negative); PH 6.5 (5.0-9.0); Specific Gravity - Urine >= 1.030 (1.005-1.025); Urine Blood Negative (Negative); Urine Ketones Negative (Negative); Urine Protein Negative (Neg-Trace)
== END 2022-09-14 19:53 | disposition home or self-care (01) ==
PROVIDERS: Physician Assistant; Emergency Provider Student in an Organized Health Care Education/Training Program; PCP Internal Medicine
DX: H53.9 Unspecified visual disturbance (principal); H53.8 Other visual disturbances; R51.9 Headache, unspecified; R94.31 Abnormal electrocardiogram [ECG] [EKG]; M54.2 Cervicalgia; I25.10 Atherosclerotic heart disease of native coronary artery without angina pectoris; Z87.891 Personal history of nicotine dependence; Z79.899 Other long term (current) drug therapy
CPT/HCPCS: 36415; 70450; 70496; 70498; 80048; 80076; 81003; 82947; 83735; 84484; 85025; 85610; 93005; 99285; Q9967

== ENCOUNTER 2022-10-03 10:27 | Outpatient (REF) | payer OTHER, MEDICARE, SELFPAY ==
--- NOTE | ~2022-10-03 | MR_ITS ---
MR CERVICAL SPINE WITHOUT CONTRAST CLINICAL INFORMATION: Cervical region radiculopathy. COMPARISON: CTA head and neck 09/14/2022. TECHNIQUE: MRI of the cervical spine was obtained using routine sequences without contrast. FINDINGS: There is straightening of the cervical lordosis. Partially imaged leftward convex scoliotic curvature of the upper thoracic spine. There is mild anterior subluxation of C4 on C5. The vertebral body heights are maintained. There is severe disc volume loss at C5-C6, C6-C7, and C7-T1. There Modic type I endplate signal changes at C5-C6 and C6-C7. There is bone marrow edema within the left C4 and C5 facets that is most likely degenerative or inflammatory. Large multilevel endplate osteophytes. There are also Modic type I endplate signal changes at T2-T3. Craniocervical junction is unremarkable. The partially imaged posterior fossa is unremarkable. Cervical arterial flow voids are maintained. No significant extraspinal soft tissue findings. Nondiagnostic assessment for cord signal changes due to the degree of artifact. C2-C3: Uncovertebral joint hypertrophy and hypertrophic facet arthropathy result in mild bilateral foraminal encroachment. C3-C4: Disc osteophyte and ligamentum flavum thickening result in moderate central canal stenosis and flattening of the cord. Advanced uncovertebral joint hypertrophy and hypertrophic facet arthropathy result in severe left-sided foraminal stenosis. C4-C5: Disc osteophyte and ligamentum flavum thickening result in moderate to severe central canal stenosis and flattening of the cord. Advanced uncovertebral joint hypertrophy and hypertrophic facet arthropathy result in severe bilateral foraminal stenosis. C5-C6: Disc osteophyte and ligamentum flavum thickening result in moderate to severe central canal stenosis and flattening of the cord. Advanced uncovertebral joint hypertrophy and hypertrophic facet arthropathy result in severe bilateral foraminal stenosis. C6-C7: Disc osteophyte and ligamentum flavum thickening result in moderate to severe central canal stenosis and flattening of the cord. Advanced uncovertebral joint hypertrophy and hypertrophic facet arthropathy result in severe bilateral foraminal stenosis. C7-T1: Disc osteophyte mildly narrows the central canal. Advanced uncovertebral joint hypertrophy and hypertrophic facet arthropathy result in moderate bilateral foraminal stenosis. MR/MR cervical spine wo con IMPRESSION: Advanced cervical spondylosis. Advanced spondylitic changes result in moderate to severe central canal stenosis and flattening of the cervical spinal cord at the C4-C5, C5-C6, and C6-C7 levels as well as moderate central canal stenosis and flattening of the cervical cord at C3-C4. Nondiagnostic assessment for cord signal changes due to the degree of artifact. Advanced spondylitic changes result in severe left C3-C4, severe bilateral C4-C5, severe bilateral C5-C6, severe bilateral C6-C7, and moderate bilateral C7-T1 foraminal stenosis. There is bone marrow edema within the left C4 and C5 facets that is most likely degenerative or inflammatory.
== END 2022-10-03 10:28 | disposition home or self-care (01) ==
LOC: HO.MRI 10:27
PROVIDERS: PCP Internal Medicine; Visit Provider Physician Assistant
DX: M54.12 Radiculopathy, cervical region (principal)
CPT/HCPCS: 72141

== ENCOUNTER 2022-10-09 14:21 | Outpatient (REF) | payer OTHER, MEDICARE, SELFPAY ==
--- NOTE | ~2022-10-09 | MR_ITS ---
EXAMINATION: MR LUMBAR SPINE WITHOUT CONTRAST CLINICAL INFORMATION: Low back pain and sciatica. COMPARISON: No relevant prior imaging. TECHNIQUE: MRI of the lumbar spine was obtained using routine sequences without contrast. FINDINGS: There is spinal scoliosis with a rightward convex curvature centered at L2 and a leftward convex curvature of the lower lumbar spine. Slight left lateral subluxation of L1 on L2 and slight right lateral subluxation of L3 on L4. Alignment is grossly maintained in the sagittal plane. Vertebral heights are preserved. There are type I degenerative endplate changes at L5-S1. Mixed predominantly type II and type III degenerative endplate changes are visualized at multiple additional levels. The tip of the conus medullaris is located at L1. No mass effect on the conus. Visualized distal cord signal intensity is normal. At L1-L2 there is a bulging disc. Bilateral facet degenerative change. Mild canal stenosis. No mass effect on the traversing or foraminal nerve roots. At L2-L3 there is a diffusely bulging disc. Advanced bilateral facet degenerative change. Moderate canal stenosis. Asymmetric narrowing of the left subarticular zone causes displacement and likely compression of the left traversing L3 nerve roots. No foraminal nerve root compression. At L3-L4 there is a diffusely bulging disc. Advanced facet degenerative change. Severe canal stenosis. Mild mass effect on the right L3 foraminal nerve root. At L4-L5 there is a diffusely bulging disc. Advanced bilateral facet degenerative change. Severe canal stenosis. Moderate compression of the right L4 foraminal nerve root. At L5-S1 there is a right subarticular extrusion with 1.3 cm caudal subligamentous extension of extruded disc material causing asymmetric compression of the right traversing S1 nerve roots. No canal stenosis. Mild mass effect on both L5 foraminal nerve roots. Limited visualization of the retroperitoneal anatomy reveals no abnormal finding. Psoas and paraspinal groups are symmetric. MR/MR lumbar spine wo con IMPRESSION: There is multilevel degenerative spondylosis of the lumbar spine. There is spinal scoliosis with a rightward convex curvature centered at L2 and a leftward convex curvature of the lower lumbar spine. Slight left lateral subluxation of L1 on L2 and slight right lateral subluxation of L3 on L4. Severe canal stenosis at L3-L4 and L4-L5. Moderate canal stenosis at L2-L3. Mild canal stenosis at L1-L2. There are varying degrees of mass effect on the traversing and foraminal segments of the nerve roots as described above. For instance there is a right subarticular extrusion at L5-S1 causing asymmetric compression of the right traversing S1 nerve roots.
== END 2022-10-09 14:22 | disposition home or self-care (01) ==
LOC: HO.MRI 14:21
PROVIDERS: PCP Internal Medicine; Visit Provider Physician Assistant
DX: M54.40 Lumbago with sciatica, unspecified side (principal)
CPT/HCPCS: 72148

== ENCOUNTER 2022-10-24 13:10 | Outpatient (REF) | payer OTHER, MEDICARE, SELFPAY ==
--- NOTE | ~2022-10-24 | XR_ITS ---
EXAMINATION: XR KNEE, LEFT CLINICAL INFORMATION: Left knee pain. COMPARISON: 04/30/2022 TECHNIQUE: AP and lateral views of the left knee. FINDINGS: There is again noted to be severe narrowing of the medial joint space compartment with varus angulation. Marginal sclerosis is present with mild spurring. The lateral and patellofemoral joints appear to be maintained. There is a small left knee effusion. There is spurring of the patellar site of insertion of the quadriceps tendon. There is degenerative spurring seen about the patellofemoral joint. Since the prior study, there appears to be a mild increase in medial joint space narrowing. XR/XR knee LT 2V IMPRESSION: Severe degenerative change of the medial joint space compartment with varus angulation. Patellofemoral degenerative spurring with small left knee effusion.
== END 2022-10-24 13:11 | disposition home or self-care (01) ==
LOC: HO.HOSX 13:10
PROVIDERS: PCP Internal Medicine; Visit Provider Physician Assistant
DX: M17.12 Unilateral primary osteoarthritis, left knee (principal); M54.40 Lumbago with sciatica, unspecified side
CPT/HCPCS: 73560

== ENCOUNTER 2022-11-26 08:18 | Outpatient (REF) | payer MEDICARE, OTHER, SELFPAY | END 2022-11-26 08:19 | disposition home or self-care (01) | LOC: HO.HOSX 08:18 | PROVIDERS: Visit Provider Orthopaedic Surgery | DX: Z13.89 Encounter for screening for other disorder (principal) ==

== ENCOUNTER 2022-11-26 10:54 | Outpatient (AMB) | payer MEDICARE, OTHER, SELFPAY ==
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
[2022-11-26 11:08] VITALS: BMI 27.1
== END 2022-11-26 12:11 | disposition home or self-care (01) ==
PROVIDERS: PCP Internal Medicine; Visit Provider Orthopaedic Surgery
DX: M17.12 Unilateral primary osteoarthritis, left knee (principal)
CPT/HCPCS: 99202

== ENCOUNTER 2022-12-01 11:28 | Outpatient (REF) | payer MEDICARE, OTHER, SELFPAY ==
[2022-12-01 12:02] VITALS: BP 172/83; PULSE 69; RESP 18; TEMP 36.6; O2SAT 96
[2022-12-01 13:14] VITALS: BMI 27.1
== END 2022-12-01 11:29 | disposition home or self-care (01) ==
LOC: HO.MS 11:28
PROVIDERS: PCP Internal Medicine; Visit Provider Ophthalmology
PROC: (CPT 66821; principal; 2022-12-01 13:10)
DX: H26.491 Other secondary cataract, right eye (principal)
CPT/HCPCS: 66821

== ENCOUNTER 2022-12-02 15:27 | Outpatient (AMB) | payer OTHER, MEDICARE, SELFPAY ==
--- NOTE | 2022-12-02 16:13 | HO.SPINEOV ---
Intake Intake Visit Reasons: discuss surgery/needs x-ray same day Intake Note: Mr. Temple is here today to discuss surgery. Allergies thiopental [From Pentothal] Adverse Reaction (Severe, Verified 11/26/22 11:07) During Dental Surgery- Could not wake up - years ago Black fly Bites Allergy (Uncoded 08/11/22 09:55) Swelling Assessment & Plan Assessment & Plan (1) Back pain of lumbar region with sciatica: Code(s): M54.40 - Lumbago with sciatica, unspecified side Plan Dear Dr Montilla, I saw Mr Temple today in the office, I reviewed his lumbar MRI and he does have significant arthritis in the lumbar spine at L3-4 and L4-5 with some impingement, but he seems to be getting better in terms of his clinical presentation with improving numbness and radicular symptoms. The thing that is disabling him now the most is the localized pain and swelling over his knee, and pain with walking on it. He can barely keep his brace on the left knee for more than 10 or 15 minutes and it will become intolerable. These things seem most compatible with his knee pathology and I believe some of his lumbar pathology is actually just going to get better with time. If you are going to move ahead with surgery, there is no contraindication from our standpoint and you can book him when you see fit for knee surgery. Total amount of time spent in this visit was 20 minutes in discussion of symptoms, lumbar MRI imaging results and subsequent plan of care Kameron Easley MD,PhD [facility] Coding Level of Care Code Est Pt Level 3 (44326) Diagnoses Back pain of lumbar region with sciatica M54.40
== END 2022-12-02 16:59 | disposition home or self-care (01) ==
PROVIDERS: PCP Internal Medicine; Visit Provider Physician Assistant
DX: M54.40 Lumbago with sciatica, unspecified side (principal)
CPT/HCPCS: 99213

== ENCOUNTER → 2022-12-02 15:27 | Outpatient (BNVA) | payer OTHER, MEDICARE, SELFPAY | PROVIDERS: PCP Internal Medicine; Visit Provider Physician Assistant ==

== ENCOUNTER 2022-12-08 19:49 | Outpatient (REF) | payer OTHER, MEDICARE, SELFPAY ==
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
== END 2022-12-08 19:50 | disposition home or self-care (01) ==
LOC: HO.MRI 19:49
PROVIDERS: PCP Internal Medicine; Visit Provider Internal Medicine
DX: M25.572 Pain in left ankle and joints of left foot (principal)
CPT/HCPCS: 73721

== ENCOUNTER → 2022-12-24 09:48 | Outpatient (BNVA) | payer OTHER, MEDICARE, SELFPAY | PROVIDERS: PCP Internal Medicine; Visit Provider Orthopaedic Surgery ==

== ENCOUNTER 2023-01-14 18:13 | Outpatient (REF) | payer OTHER, MEDICARE, SELFPAY ==
--- NOTE | ~2023-01-14 | MR_ITS ---
EXAMINATION: MR KNEE WITHOUT CONTRAST, LEFT CLINICAL INFORMATION: Left knee pain. COMPARISON: Radiographs 10/24/2022. TECHNIQUE: MRI of the knee without contrast was performed using routine sequences on a high-field scanner. FINDINGS: MENISCI: Medial Meniscus: Extensive complex tearing of the posterior horn and body. Lateral Meniscus: Intact. LIGAMENTS: Cruciate: Intact. Collateral: Intact popliteus tendinopathy. MCL bursitis. EXTENSOR MECHANISM: Intact. ARTICULAR CARTILAGE/BONE: Patellofemoral Compartment: Cartilage thinning and surface irregularity of the central trochlea. Medial Compartment: Full-thickness cartilage loss throughout much of the weightbearing aspect with mild surface remodeling and marginal osteophyte formation. Lateral Compartment: Small marginal osteophytes. Focal partial-thickness cartilage defect of the posterior weightbearing femoral condyle. JOINT FLUID AND BURSAE: Small joint effusion with mild synovitis and a moderately-sized Mcginnis's cyst. MR/MR knee LT wo con IMPRESSION: 1. Extensive complex tearing of the posterior horn and body of the medial meniscus with severe medial compartment osteoarthritis. 2. Mild patellofemoral and lateral compartment osteoarthritis. Small joint effusion and Mcginnis's cyst.
== END 2023-01-14 18:14 | disposition home or self-care (01) ==
LOC: HO.MRI 18:13
PROVIDERS: PCP Internal Medicine; Visit Provider Orthopaedic Surgery
DX: S83.8X2A Sprain of other specified parts of left knee, initial encounter (principal)
CPT/HCPCS: 73721

== ENCOUNTER 2023-01-21 10:08 | Outpatient (AMB) | payer OTHER, MEDICARE, SELFPAY ==
[2023-01-21 10:10] VITALS: BMI 27.1
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
== END 2023-01-21 11:02 | disposition home or self-care (01) ==
PROVIDERS: PCP Internal Medicine; Visit Provider Orthopaedic Surgery
DX: M17.12 Unilateral primary osteoarthritis, left knee (principal)
CPT/HCPCS: 99212

== ENCOUNTER → 2023-01-21 10:08 | Outpatient (BNVA) | payer OTHER, MEDICARE, SELFPAY | PROVIDERS: PCP Internal Medicine; Visit Provider Orthopaedic Surgery ==

== ENCOUNTER 2023-01-26 06:20 | Day surgery (SDC) | payer OTHER, MEDICARE, SELFPAY ==
[2023-01-16 13:53] VITALS: BP 136/74; PULSE 71; RESP 18; O2SAT 98; BMI 27.9
[2023-01-16 16:23] LABS: MRSA Nasal PCR NEGATIVE (Negative); SA Nasal PCR NEGATIVE (Negative)
[2023-01-26] VITALS (24 sets, daily range): BP systolic 131–160; BP diastolic 53–79; PULSE 64–75; RESP 12–20; TEMP 35.9–36.4; O2SAT 94–99; BMI 26.0
[2023-01-26] MEDS: Lactated Ringers 1,000 ML 100 ML IVCONT ×3 (07:26→22:24)
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
--- NOTE | 2023-01-26 11:13 | P.BOP_ITS ---
Brief Operative Note Date of Service: 01/26/23 Pre-op diagnosis: Left knee degenerative joint disease Post-op diagnosis: same Procedure: Left total knee arthroplasty Implants: [place] [employer] cemented posterior stabilized total knee arthroplasty with a femoral component size 5 left, tibial component size 6, polyethylene liner size 6 with 13 mm of thickness, an asymmetric patellar component size 32 with 10 mm of thickness Surgeon: David Montilla MD Anesthesia: GETA Was an Assistant Department Manager used for this Procedure?: Yes Assistant Department Manager: Berta Santana Estimated blood loss (mL): 200 Tourniquet time (min): 0 Condition: stable Disposition: PACU
--- NOTE | 2023-01-26 11:15 | W.PM.OPN ---
Operative Note Operative Note Date of Service: 01/26/23 Narrative: After the patient was identified as Anuj Temple Jr. and their left knee was initialed by myself the patient was brought to the holding area where a left leg nerve block was performed by the anesthesiologist in routine fashion. The patient was then brought to the operating room where general anesthesia was induced by the anesthesiologist in routine fashion The patient was given 2 g of IV Ancef preoperatively for infection prophylaxis. The patient's left lower extremity was prepped and draped in sterile fashion. A formal time-out was completed. The patient's left knee was placed onto a small bump to produce 30? of knee flexion during exposure. A #10 scalpel blade was used to make a midline incision extending 1 handbreadth proximal and distal to the patella. A second #10 scalpel blade was used to dissect the subcutaneous tissues down to the extensor mechanism. The subcutaneous flaps were maintained as thick as possible. A medial parapatellar arthrotomy was then performed using a #10 scalpel blade. The arthrotomy was begun just medial to the patellar tendon. The arthrotomy was continued 1 cm medial to the patella and then 5 mm into the medial aspect of the quadriceps tendon. The infrapatellar fat pad was partially excised to help with exposure. The soft tissue retinaculum was raised one-half of the way around the medial aspect of the proximal tibia. The patella was everted and the knee was flexed to 90?. There was no injury to the patellar tendon or its insertion onto the tibial tubercle. A drill bit was introduced into the distal aspect of the femur with a starting point 1 cm anterior to the origin of the posterior cruciate ligament. The intramedullary alignment gurinder was put into place. The distal alignment guide was set for a 5 degree valgus cut. The distal cutting block was put into place and was held with 4 pins. The intramedullary alignment gurinder was removed. Soft tissues were retracted in the distal femoral cut was made using a sagittal saw. The distal aspect of the femur measured to be a size 5 left component. Two drill holes were placed into the distal aspect of the femur marking 3? of external rotation. The distal cutting block was impacted into place and was held with 2 pins. Soft tissues were retracted and the 4 distal femoral cuts were made using a sagittal saw. Final notching and drilling of the distal aspect of the femur were performed in routine fashion. The trial femoral component was impacted into place. The knee was taken through a full range of motion. The patella tracked well. The patella was everted and the knee was flexed to 90?. The trial component was removed and our attention was directed to the proximal tibia. The medial and lateral menisci were removed using a #10 scalpel blade. A small rim of the medial meniscus was left intact to help prevent injury to the medial collateral ligament. A drill bit was then introduced into the proximal tibia with a starting point midway from medial to lateral and one-third of the way posteriorly. The intramedullary alignment gurinder was put into place. The proximal tibial cutting guide was placed over the alignment gurinder in line with the 2nd toe. The guide was held in place using 3 pins. The intramedullary alignment gurinder was removed. Soft tissues were retracted and the proximal tibial cut was made using a sagittal saw. The proximal tibia measured to be a size 6 component. The tibial tray was put into place with a 13 mm liner. The femoral component was impacted into place. The knee was taken through a full range of motion. There was full flexion and full extension. There was no instability with varus or valgus stress testing with the knee in flexion or extension. The patella tracked well with no medially directed force. The rotation of the tibial tray was marked using electrocautery with the knee in extension. The patella was everted and the knee was flexed to 90?. All trial components were removed. The tibial tray was placed onto the proximal tibia in line with the electrocautery hannah. The tray was held in place using 3 pins. Final broaching of the proximal tibia was performed in routine fashion. The trial liner and trial femoral component were put into place. The knee was brought into extension and our attention was directed to the patella. The patella measured 25 mm in thickness. The patellar resection guide was set for a 10 mm resection. Soft tissues were retracted and the patella cut was made using a sagittal saw. The remaining patella measured 15 mm in thickness. The undersurface of the patella was measured to be a size 32 asymmetric component. Three drill holes were placed into the undersurface of the patella in routine fashion. The trial component was put into place. The knee was taken through a full range of motion. The patella tracked well. The patella was everted and the knee was flexed to 90?. All trial components were removed. The knee was once again brought into extension and placed onto a small bump. The knee joint was irrigated with copious amounts of normal saline solution via pulse lavage while the cement was mixed. The patella was everted and the knee was flexed to 90?. A small amount of cement was placed along the posterior aspects of the tibial and femoral components. Cement was then pressurized into the proximal tibia. The tibial component was impacted into place. Any excess cement was removed. The polyethylene liner was then impacted into place. Cement was then pressurized into the distal aspect of the femur. A small amount of cement was placed into the intramedullary canal to help reduce bleeding. The femoral component was impacted into place. Any excess cement was removed. The knee was then brought into extension. Cement was pressurized into the undersurface of the patella. The patellar component was put into place and was held with a patella clamp. Any excess cement was removed. Once the cement had hardened the patellar clamp was removed. The knee was taken through a full range of motion. There was full flexion and extension. There was no instability with varus or valgus stress testing with the knee in flexion or extension. The patella tracked well with no medially directed force. The knee joint was irrigated with copious amounts of normal saline solution via pulse lavage. Any significant bleeding vessels were coagulated. The patient's left knee was placed onto a small bump. The arthrotomy was closed with #2 Ethibond [id number] interrupted suture as well as #1 Vicryl [id number] interrupted suture. The wound was once again irrigated. The subcutaneous tissues were closed with 0 Vicryl and 2-0 Vicryl interrupted sutures. The skin was closed with skin gabrielle. Dry sterile dressing and Jose Eduardo bandages were placed over the patient's left knee. The patient was awoken and extubated in the operating room. The patient was transferred to the recovery room in stable condition.
--- NOTE | 2023-01-26 11:16 | PHA.MEDREC ---
Pharmacy Consult ? Medication Reconciliation Pharmacy has completed the medication reconciliation. Reviewed med rec done by nursing
[2023-01-26] MEDS: HYDROmorphone HCl 0.5 MG/0.5 ML SYRINGE IVPUSH ×4 (11:17→11:42)
[2023-01-26] MEDS: oxyCODONE HCl Immed Release 5 MG TABLET PO (11:41)
[2023-01-26] MEDS: ceFAZolin Sodium/Dextrose,Iso 2 GM/50 ML PIGGYBACK IV ×2 (13:51→22:18)
[2023-01-26] MEDS: methocarbamoL 750 MG TABLET PO ×2 (13:52→20:22)
[2023-01-26] MEDS: 0.9 % Sodium Chloride Flush 3 ML SYRINGE IVFLUSH (13:53)
[2023-01-26] MEDS: Aspirin 325 MG TABLET PO (17:31)
[2023-01-26] MEDS: oxyCODONE HCl Immed Release 5 MG TABLET 10 MG PO (17:32)
[2023-01-26] MEDS: Docusate Sodium 100 MG CAPSULE PO (20:22)
[2023-01-26] MEDS: Acetaminophen 325 MG TABLET 650 MG PO (20:22)
[2023-01-26] MEDS: Atorvastatin Calcium 40 MG TABLET PO (20:22)
[2023-01-26] MEDS: oxyCODONE HCl ER 10 MG TAB.ER.12H PO (20:22)
[2023-01-26] MEDS: Celecoxib 200 MG CAPSULE PO (20:22)
[2023-01-27 03:55] VITALS: BP 124/67; PULSE 75; RESP 18; TEMP 36.4; O2SAT 97
[2023-01-27] MEDS: ceFAZolin Sodium/Dextrose,Iso 2 GM/50 ML PIGGYBACK IV (06:00)
[2023-01-27] MEDS: HYDROmorphone HCl 0.5 MG/0.5 ML SYRINGE 0.25 MG IVPUSH ×3 (06:02→17:55)
[2023-01-27 06:04] LABS: MANUAL DIFF FLAG NO
[2023-01-27 06:07] LABS: Basophils Percent Auto 0.1 % (0-2); Hematocrit 33.9 % (42.0-52.0); Hemoglobin 11.4 g/dl (14.0-18.0); Imm Gran Abs Auto 0.06 X10*3/uL (0.00-0.03); Imm Gran Pct Auto 0.5 % (0.0-0.4); Lymphocytes Absolute Auto 0.8 X10*3/uL (1.2-4.9); Lymphocytes Percent Auto 7.2 % (20-40); Mean Corpuscular HGB Conc 33.6 g/dl (31.0-36.0); Mean Corpuscular Hemoglobin 31.4 pg (27.0-33.0); Mean Corpuscular Volume 93.4 fL (80.0-98.0); Mean Platelet Volume 9.6 fL (9.4-12.4); Monocytes Absolute Auto 1.2 X10*3/uL (0.1-1.2); Monocytes Percent Auto 9.8 % (2-11); Neutrophils Absolute Auto 9.6 x10*3/uL (2.0-8.3); Neutrophils Percent Auto 82.4 % (45-73); Platelet Count 215 X10*3/uL (160-400); Red Blood Count 3.63 X10*6/uL (4.60-5.80); Red Cell Distribution Width 12.2 % (11.0-16.0); White Blood Count 11.7 X10*3/uL (4.8-10.8)
[2023-01-27 06:21] LABS: Anion Gap 13 (12-20); Blood Urea Nitrogen 22 mg/dL (9-16); Calcium 8.5 mg/dL (8.4-10.2); Carbon Dioxide 27 mmol/L (22-29); Chloride 103 mmol/L (96-108); Creatinine Clr Calc Pharmacy 64.2; Estimated Glomerular Filt Rate > 60; Glucose Fasting 144 mg/dL (60-99); Potassium 4.6 mmol/L (3.3-5.1); Sodium 138 mmol/L (135-145)
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
[2023-01-27 07:45] VITALS: BP 124/60; PULSE 66; RESP 18; TEMP 36.2; O2SAT 97
[2023-01-27] MEDS: methocarbamoL 750 MG TABLET PO ×3 (07:57→20:00)
[2023-01-27] MEDS: atenoloL 25 MG TABLET PO (07:57)
[2023-01-27] MEDS: Docusate Sodium 100 MG CAPSULE PO ×2 (07:57→20:01)
[2023-01-27] MEDS: oxyCODONE HCl ER 10 MG TAB.ER.12H PO ×2 (07:57→20:00)
[2023-01-27] MEDS: Celecoxib 200 MG CAPSULE PO ×2 (07:58→20:01)
[2023-01-27] MEDS: Aspirin 325 MG TABLET PO ×2 (07:58→20:01)
--- NOTE | 2023-01-27 07:59 | P.PNOP_ITS ---
Subjective Subjective Date of Service: 01/27/23 Interval history: POD 1 s/p LT TKA no overnight events resting in chair denies sob, cp, palpitations has some urinary retention Physical Exam Vital Signs: Vital Signs: Last Vital Signs Temp 97.1 F 01/27/23 07:45 Pulse 66 01/27/23 07:45 Resp 18 01/27/23 07:45 BP 124/60 01/27/23 07:45 Pulse Ox 97 01/27/23 07:45 O2 Del Method Room Air 01/27/23 07:45 O2 Flow Rate 2 01/26/23 12:50 BMI result Body Mass Index 26.0 Const: General: cooperative, healthy appearing and no acute distress Resp: Effort & Inspection: normal respiratory effort and able to speak in complete sentences Cardio: Rate: regular rate Peripheral pulses: Peripheral pulses 2+ throughout GI: Palpation (GI): Soft to palpation Skin: General skin exam: no rashes or lesions noted Extrem: Other: incision clean dry and intact. No erythema or joint effusion. Calf supple nontender. Neurovascularly intact. Procedures Date of Service Date of Service: 01/27/23 Progress Note: A&P Assessment and plan (1) History of total left knee replacement: Status: Acute Assessment and Plan: * Continue pain mgmnt * Begin Aspirin for dvt ppx * begin PT for LT TKA * Dispo planning-Pending PT eval, pain mgmnt Time Spent With Patient Time: Total time managing care of this patient today ____ minutes. Quality Stroke Does the patient have a stroke diagnosis?: No VTE Prior VTE?: No VTE Risk Level:: Surgical - very high VTE Device Contraindication: N/A - Device Ordered VTE Drug Contraindication: N/A - Med Ordered
--- NOTE | 2023-01-27 09:01 | MHC.CM.PN ---
CM MET WITH PT AT BEDSIDE. PT LIVES ALONE BUT WILL HAVE A FRIEND STAYING CODE ENFORCEMENT INSPECTOR WITH HIM FOR S/T. INDEPENDENT WITH MOBILITY AT BASELINE BUT DOES HAVE A WALKER NEEDED. + COVID VAX. + HCP, COPY REQUESTED. PCP DR. MEJIA [place] [facility] [place] PT WOULD LIKE TO SWITCH PCP TO [facility] [place] [facility], BRO[facility]URE PROVIDED. DP: HOME WITH NEW [facility] FOR HOME P.T. (FIRST CHOICE) REFERRAL SENT WITH INSURANCE INFO. DAUGHTER WILL TRANSPORT HOME ON DC VS BLS IF NOT ABLE TO NAVIGATE STAIRS (HAS 13) CM WILL CONTINUE TO FOLLOW FOR ANY CHANGE IN DC PLAN/NEEDS.
--- NOTE | 2023-01-27 11:40 | HO.POSTANES ---
Post Anesthesia Evaluation Post Anesthesia Evaluation Date of Service: 01/27/23 Vital Signs: Vital Signs Temp Pulse Resp BP Pulse Ox O2 Del Method 01/27/23 07:45 97.1 F 66 18 124/60 97 Room Air 01/27/23 03:55 97.6 F 75 18 124/67 97 Room Air Anesthesia: Nerve Block and General Mental Status: Awake Pain Control: Satisfactory Nausea/Vomiting: None Hydration: Adequate Anesthesia-Related Issues: No Anes. Related Issues
[2023-01-27 15:49] VITALS: BP 117/53; PULSE 68; RESP 20; TEMP 36.1; O2SAT 99
--- NOTE | 2023-01-27 15:51 | PM.DS ---
DS: Providers Provider Date of Service: 01/28/23 Primary care physician: Katia Edward MD Consults: 01/26/23 13:18 Consult to Hospitalist Routine Comment: Consulting Provider: Hospitalist Reason For Exam: routine medical management DS: Diagnosis Discharge Diagnosis (1) History of total left knee replacement: Status: Acute DS: Summary Hospital Course Hospital Course: The patient underwent a successful left total knee arthroplasty, they were transferred to PACU and then to the floor to recover. During their stay, their vitals were stable, afebrile at 97.5. Labs were unremarkable, H/H 10.3/31.0. POD 1 they were started on Aspirin 325mg po bid for DVT ppx, they also received Physical Therapy services twice a day. Prior to discharge, their dressing was changed, incision clean dry and intact, new Aquacel dressing applied and the plan was to be discharged home with VNA services. Time Spent with Patient Time attestation: Total time managing care of this patient today ____ minutes. Discharge coordination time: Less than 30 minutes Quality: Safe Use of Opioids Does Pt have an Active Cancer Diagnosis on the Problem List?: No Quality: Stroke Does the patient have a stroke diagnosis?: No Physical Exam Vital Signs: Vital Signs: Last Vital Signs Temp 96.9 F 01/27/23 15:49 Pulse 68 01/27/23 15:49 Resp 20 01/27/23 15:49 BP 117/53 L 01/27/23 15:49 Pulse Ox 99 01/27/23 15:49 O2 Del Method Room Air 01/27/23 15:49 O2 Flow Rate 2 01/26/23 12:50 BMI result Body Mass Index 26.0 Const: General: cooperative, healthy appearing and no acute distress Resp: Effort & Inspection: normal respiratory effort and able to speak in complete sentences Cardio: Rate: regular rate Peripheral pulses: Peripheral pulses 2+ throughout GI: Palpation (GI): Soft to palpation Skin: General skin exam: no rashes or lesions noted Extrem: Other: Left knee incision clean dry and intact. No erythema or joint effusion. Calf supple nontender. Neurovascularly intact. DS: Data Data Completed and Pending Pending studies at discharge: Pending at discharge 01/26/23 09:33 Surgical [PTH] Routine Labs on day of discharge: Laboratory Results - last 24 hr 01/27/23 05:12 WBC 11.7 H RBC 3.63 L Hgb 11.4 L Hct 33.9 L MCV 93.4 MCH 31.4 MCHC 33.6 RDW 12.2 Plt Count 215 D MPV 9.6 Immature Gran % (Auto) 0.5 H Neut % (Auto) 82.4 H Lymph % (Auto) 7.2 L [place] % (Auto) 9.8 Eos % (Auto) 0.0 Baso % (Auto) 0.1 Lymph # (Auto) 0.8 L [place] # (Auto) 1.2 Eos # (Auto) 0.0 Baso # (Auto) 0.0 Abs Immat Gran (auto) 0.06 H Absolute Neuts (auto) 9.6 H Absolute Nucleated RBC 0.000 Nucleated RBC % (auto) 0.0 Sodium 138 Potassium 4.6 Chloride 103 Carbon Dioxide 27 Anion Gap 13 BUN 22 H Creatinine 1.04 Estim Creat Clear Calc 64.2 Estimated GFR > 60 Fasting Glucose 144 H Calcium 8.5 Discharge Plan Discharge Patient Disposition: Home, Self-Care Referrals: Berta Santana PA-C [Physician It Operations Specialist] - 02/12/23 12:30 pm Discharge Medications: New celecoxib 200 mg Capsule 200 mg PO BID 30 Days Qty: 60 0RF acetaminophen 325 mg Tablet 650 mg PO Q6H PRN (Reason: Pain, Mild (Pain Scale 1-3)) 30 Days Qty: 240 0RF aspirin 325 mg Tablet 325 mg PO BID 42 Days Qty: 84 0RF methocarbamol 750 mg Tablet 750 mg PO TID 7 Days Qty: 21 0RF docusate sodium 100 mg Capsule 100 mg PO BID 30 Days Qty: 60 0RF oxycodone 5 mg Tablet 5 mg PO Q4H PRN (Reason: Pain, Moderate(Pain Scale 4-6)) 7 Days Qty: 42 0RF Rx Instructions: Partial Fill upon patient request. Continued atorvastatin 40 mg tablet 1 tab PO BEDTIME atenolol 25 mg tablet 1 tab PO DAILY famotidine 20 mg Tablet 20 mg PO DAILY PRN (Reason: Acid Reflux) Discontinued aspirin [Aspir-81] 81 mg Tablet,Delayed Release (Dr/Ec) 81 mg PO DAILY Discharge Orders: Discharge Order (Routine); Ordered 01/28/23 Ordered By: Berta Santana Diet: Advance to usual diet Activity on Discharge: Use cane or walker Activity Restrictions/Additional Instructions: Physical Therapy for ROM 0-120, quad strength, gait training. Use walker for ambulation Limit stair climbing, No shower, No tub bath, No driving Continue anticoagulant Keep Aquacel dressing clean, dry and intact. Follow up with orthopedics in 2 weeks
--- NOTE | 2023-01-27 15:54 | W.MHC.F2F ---
Service Date Service Date: 01/27/23 Encounter Date of encounter: 01/28/23 Reasons for Services Signs and symptoms assessed: Pt. is considered homebound due to recent surgery. Unable to drive, poor balance, poor gait mechanics. s/p ltka Reason for physical therapy: home safety and mobility, therapeutic exercises, restore joint function, gait/transfer training, assess need for DME and ADL training Homebound: Leaving the home is medically contraindicated at this time without the asist of a device and/or another person due th the listed conditions above and below. Reason homebound: unsteady gait / fall risk, leg weakness, pain with ambulation, pain with transfers, poor balance / fall risk and unable to drive Certification: Based on the above findings, I certify that this patient is confined to the home and needs intermittent residential care, physical therapy and/or speech therapy, or continues to need occupational therapy. The patient is under my care, and I have initiated the establishment of the plan of care. The patient will be followed by a physician who will periodically review the plan of care. Time Spent With Patient Time: Total time managing care of this patient today ____ minutes.
[2023-01-27] MEDS: Lactated Ringers 1,000 ML 100 ML IVCONT (19:28)
[2023-01-27 19:42] VITALS: BP 131/60; PULSE 67; RESP 20; TEMP 36; O2SAT 98
[2023-01-27] MEDS: Atorvastatin Calcium 40 MG TABLET PO (20:00)
[2023-01-28 00:13] VITALS: BP 140/65; PULSE 67; RESP 19; TEMP 36.4; O2SAT 98
[2023-01-28] MEDS: oxyCODONE HCl Immed Release 5 MG TABLET 10 MG PO (02:37)
[2023-01-28] MEDS: Lactated Ringers 1,000 ML 100 ML IVCONT (05:56)
[2023-01-28 06:30] LABS: Basophils Percent Auto 0.4 % (0-2); Eosinophils Absolute Auto 0.1 X10*3/uL (0.0-0.4); Eosinophils Percent Auto 1.6 % (0-4); Hemoglobin 10.3 g/dl (14.0-18.0); Imm Gran Abs Auto 0.03 X10*3/uL (0.00-0.03); Imm Gran Pct Auto 0.4 % (0.0-0.4); Lymphocytes Absolute Auto 1.7 X10*3/uL (1.2-4.9); Lymphocytes Percent Auto 21.8 % (20-40); MANUAL DIFF FLAG NO; Mean Corpuscular HGB Conc 33.2 g/dl (31.0-36.0); Mean Corpuscular Hemoglobin 31.8 pg (27.0-33.0); Mean Corpuscular Volume 95.7 fL (80.0-98.0); Mean Platelet Volume 9.8 fL (9.4-12.4); Monocytes Absolute Auto 0.9 X10*3/uL (0.1-1.2); Monocytes Percent Auto 11.3 % (2-11); Neutrophils Absolute Auto 5.2 x10*3/uL (2.0-8.3); Neutrophils Percent Auto 64.5 % (45-73); Platelet Count 168 X10*3/uL (160-400); Red Blood Count 3.24 X10*6/uL (4.60-5.80); Red Cell Distribution Width 12.4 % (11.0-16.0)
[2023-01-28 06:47] LABS: Anion Gap 11 (12-20); Blood Urea Nitrogen 24 mg/dL (9-16); Calcium 8.2 mg/dL (8.4-10.2); Carbon Dioxide 28 mmol/L (22-29); Chloride 107 mmol/L (96-108); Estimated Glomerular Filt Rate > 60; Glucose Fasting 102 mg/dL (60-99); Potassium 4.2 mmol/L (3.3-5.1); Sodium 142 mmol/L (135-145)
[2023-01-28 07:59] VITALS: BP 141/65; PULSE 70; RESP 18; TEMP 36.1; O2SAT 99
[2023-01-28] MEDS: atenoloL 25 MG TABLET PO (08:25)
[2023-01-28] MEDS: Celecoxib 200 MG CAPSULE PO (08:25)
[2023-01-28] MEDS: Docusate Sodium 100 MG CAPSULE PO (08:25)
[2023-01-28] MEDS: oxyCODONE HCl ER 10 MG TAB.ER.12H PO (08:25)
[2023-01-28] MEDS: Acetaminophen 325 MG TABLET 650 MG PO (08:25)
[2023-01-28] MEDS: Aspirin 325 MG TABLET PO (08:26)
[2023-01-28] MEDS: methocarbamoL 750 MG TABLET PO ×2 (08:26→14:38)
--- NOTE | 2023-01-28 08:48 | MHC.CM.PN ---
pt dcd home no services has own transportr home
--- NOTE | 2023-01-28 10:43 | MHC.CM.PN ---
pt dcd home with ns
[2023-01-28 11:00] VITALS: O2SAT 95
== END 2023-01-28 15:52 | disposition home health service (06) ==
LOC: HO.SSS 06:20 → HO.S3 10:56
PROVIDERS: Physician Assistant; PCP Internal Medicine; Visit Provider Orthopaedic Surgery
PROC: (CPT 27447; principal; 2023-01-26 08:30)
DX: M17.12 Unilateral primary osteoarthritis, left knee (principal); M25.562 Pain in left knee; R26.2 Difficulty in walking, not elsewhere classified; M54.50 Low back pain, unspecified; V49.49XA Driver injured in collision with other motor vehicles in traffic accident, initial encounter; Y93.89 Activity, other specified; Y92.410 Unspecified street and highway as the place of occurrence of the external cause; Y99.8 Other external cause status; I25.10 Atherosclerotic heart disease of native coronary artery without angina pectoris; I25.2 Old myocardial infarction; I10 Essential (primary) hypertension; Z95.1 Presence of aortocoronary bypass graft; R73.01 Impaired fasting glucose; I48.0 Paroxysmal atrial fibrillation; E78.5 Hyperlipidemia, unspecified; Z79.82 Long term (current) use of aspirin; Z79.899 Other long term (current) drug therapy; Z85.828 Personal history of other malignant neoplasm of skin; Z87.891 Personal history of nicotine dependence; Z88.8 Allergy status to other drugs, medicaments and biological substances
CPT/HCPCS: 27447; 36415; 80048; 85025; 86850; 86900; 86901; 87640; 87641; 88305; 88311; 97110; 97116; 97162; 97530; C1776; J0131; J0690; J1100; J1170; J2250; J2371; J2405; J3010; J3370

== ENCOUNTER → 2023-01-26 06:20 | Outpatient (BNV) | payer OTHER, MEDICARE, SELFPAY | PROVIDERS: PCP Internal Medicine; Visit Provider Orthopaedic Surgery | DX: Z47.1 Aftercare following joint replacement surgery (principal); Z96.652 Presence of left artificial knee joint | CPT/HCPCS: 27447; 99024; G0180 ==

== ENCOUNTER → 2023-01-26 06:20 | Outpatient (BNV) | payer MEDICARE, OTHER, SELFPAY | PROVIDERS: PCP Internal Medicine; Visit Provider Nurse Practitioner Acute Care | DX: Z96.652 Presence of left artificial knee joint (principal) | CPT/HCPCS: 99222 ==

== ENCOUNTER 2023-02-12 09:08 | Outpatient (REF) | payer OTHER, MEDICARE, SELFPAY | END 2023-02-12 09:09 | disposition home or self-care (01) | LOC: HO.HOSX 09:08 | PROVIDERS: Visit Provider Physician Assistant | DX: Z96.652 Presence of left artificial knee joint (principal) | CPT/HCPCS: 73560; 73565 ==

== ENCOUNTER 2023-02-12 12:13 | Outpatient (AMB) | payer OTHER, MEDICARE, SELFPAY ==
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
== END 2023-02-12 13:45 | disposition home or self-care (01) ==
PROVIDERS: PCP Internal Medicine; Visit Provider Physician Assistant
DX: Z96.652 Presence of left artificial knee joint (principal)
CPT/HCPCS: 99024

== ENCOUNTER 2023-02-12 18:33 | Outpatient (REF) | payer MEDICARE, OTHER, SELFPAY | END 2023-02-12 18:34 | disposition home or self-care (01) | LOC: HO.US 18:33 | PROVIDERS: Visit Provider Physician Assistant | DX: T84.84XA Pain due to internal orthopedic prosthetic devices, implants and grafts, initial encounter (principal); Z96.652 Presence of left artificial knee joint | CPT/HCPCS: 93971 ==

== ENCOUNTER 2023-03-12 10:47 | Outpatient (AMB) | payer OTHER, MEDICARE, SELFPAY ==
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
== END 2023-03-12 11:48 | disposition home or self-care (01) ==
PROVIDERS: PCP Internal Medicine; Visit Provider Orthopaedic Surgery
DX: M25.562 Pain in left knee (principal)
CPT/HCPCS: 99024

== ENCOUNTER → 2023-03-12 10:47 | Outpatient (BNVA) | payer OTHER, MEDICARE, SELFPAY | PROVIDERS: PCP Internal Medicine; Visit Provider Orthopaedic Surgery ==

== ENCOUNTER 2023-03-20 11:00 | Outpatient (RCR) | payer MEDICARE, OTHER, SELFPAY ==
--- NOTE | 2023-02-12 13:18 | MHC.PT.EP ---
[facility] [place] Office [place] Office [place] Office [address] [phone] F: [phone] F: [phone] F: [phone] F: [phone] Physical Therapy Plan of Care Date of Evaluation: 02/12/23 Date of Surgery: 01/26/23 Diagnosis: S/P LEFT TKA Assessment: Pt IS A 77 YO MALE S/P Lt TKA ON 01/26/23 WHO IS DOING VERY WELL AND IS REF TO PUT-Pt PT AT THIS TIME. HE RESIDES ALONE IN A HOUSE AND IS AMB W A CANE-> HE IS VERY MOTIVATED TO RETURN TO PLOF. SKILLED PT IS CURRENTLY INDICATED TO ADDRESS STRENGTH, MONITOR PAIN AND ROM LEFT KNEE , IMPROVE STAIR NEGOTIATION AND EFFICIENCY OF GAIT MECHANICS. HIS LEFI SCORE IS 42/80. Frequency and Duration: The patient will be seen 2 x WK x 8 WKS Short Term Goals: *DECREASE LEFT KNEE PAIN TO 2-3/10 *INCREASE AROM LEFT KNEE *DEMON RECIPROCAL STAIR TECHN W RAILING Shape Hand Goals: * Pt ABLE TO MAINTAIN LEFT SLS x 10 SEC * Pt'S LEFT LE STRENGTH IMPROVED 1/2-1 GRADE *Pt GRAD RESUME Treatment Plan: Modalities to reduce pain, spasms and effusion. Manual therapy to restore motion and function. Therapeutic exercise to improve strength and flexibility. Neuromuscular re-education for posture and balance. Therapeutic activities to return to functional activities of daily living. Electronically signed by: NIRMALA MELARA,PT Please sign and return to therapist. Thank you for your referral.
--- NOTE | 2023-03-20 11:59 | MHC.PT.DC ---
[facility] [place] Office [place] Office [place] Office [address] [phone] F: [phone] F: [phone] F: [phone] F: [phone] Physical Therapy Discharge Report Diagnosis: S/P LEFT TKA Date of Surgery: 01/26/23 Date of Evaluation: 02/12/23 Date of Discharge: 03/20/23 Treatments to Date: 10 Cancellations to Date: 0 No Shows to Date: 0 Discharge Status: Achieved Goals Improved Function Independent with HEP Discharge Summary: Anuj arrived stating he feels his L LE is heavy and has pain starting from his alcazar down. He also reports of having low back pain. He has completed 10 PT visits and has made significant improvements with respect to his knee. He is limited with ADLS due to ankle and back pain. He is independent with all HEP for his knee. Due to this he is being d/c from PT today. Electronically signed by: Prachi Gregg, PT DPT Please sign and return to therapist. Thank you for your referral.
== END 2023-03-20 15:46 | disposition home or self-care (01) ==
LOC: HO.PT 11:00
PROVIDERS: PCP Internal Medicine; Visit Provider Orthopaedic Surgery
DX: Z96.652 Presence of left artificial knee joint (principal)
CPT/HCPCS: 97110; 97140; 97162; 97530

== ENCOUNTER 2023-05-12 09:32 | Outpatient (AMB) | payer OTHER, MEDICARE, SELFPAY ==
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
[2023-05-12 09:50] VITALS: BMI 26.0
== END 2023-05-12 10:06 | disposition home or self-care (01) ==
PROVIDERS: PCP Internal Medicine; Visit Provider Orthopaedic Surgery
DX: M25.562 Pain in left knee (principal); Z96.652 Presence of left artificial knee joint
CPT/HCPCS: 99213

== ENCOUNTER → 2023-05-12 09:32 | Outpatient (BNVA) | payer OTHER, MEDICARE, SELFPAY | PROVIDERS: PCP Internal Medicine; Visit Provider Orthopaedic Surgery ==

== ENCOUNTER 2023-06-18 15:14 | Outpatient (AMB) | payer OTHER, MEDICARE, SELFPAY ==
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
== END 2023-06-18 16:08 | disposition home or self-care (01) ==
PROVIDERS: PCP Internal Medicine; Visit Provider Physician Assistant
DX: M48.061 Spinal stenosis, lumbar region without neurogenic claudication (principal)
CPT/HCPCS: 99213

== ENCOUNTER → 2023-06-18 15:14 | Outpatient (BNVA) | payer OTHER, MEDICARE, SELFPAY | PROVIDERS: PCP Internal Medicine; Visit Provider Physician Assistant ==

== ENCOUNTER 2023-08-21 10:47 | Outpatient (AMB) | payer OTHER, MEDICARE, SELFPAY ==
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
== END 2023-08-21 11:59 | disposition home or self-care (01) ==
PROVIDERS: PCP Internal Medicine; Visit Provider Physician Assistant
DX: M48.061 Spinal stenosis, lumbar region without neurogenic claudication (principal)
CPT/HCPCS: 99213

== ENCOUNTER → 2023-08-21 10:47 | Outpatient (BNVA) | payer OTHER, MEDICARE, SELFPAY | PROVIDERS: PCP Internal Medicine; Visit Provider Physician Assistant ==

== ENCOUNTER 2023-09-10 06:41 | Outpatient (REF) | payer OTHER, MEDICARE, SELFPAY ==
--- NOTE | ~2023-09-10 | XR_ITS ---
EXAMINATION: XR KNEE, LEFT CLINICAL INFORMATION: Left knee pain COMPARISON: 02/12/2023 TECHNIQUE: Three views of the left knee. FINDINGS: There is a left knee replacement in anatomic alignment and position. There is no detected fracture or lucency at the prosthetic-bone interface. There is some soft tissue swelling about the patella, both within the infrapatellar fat pad and the suprapatellar region. XR/XR knee LT 3V IMPRESSION: 1. Left total knee replacement in anatomic alignment and position. 2. Soft tissue infiltration/swelling in the infrapatellar fat pad and suprapatellar fossa, perhaps a suprapatellar effusion. Clinical follow-up and management are recommended.
== END 2023-09-10 06:42 | disposition home or self-care (01) ==
LOC: HO.HOSX 06:41
PROVIDERS: Visit Provider Orthopaedic Surgery
DX: M25.562 Pain in left knee (principal); Z96.652 Presence of left artificial knee joint
CPT/HCPCS: 73562

== ENCOUNTER 2023-09-10 09:36 | Outpatient (AMB) | payer OTHER, MEDICARE, SELFPAY ==
[2023-09-10 09:38] VITALS: BMI 26.0
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
== END 2023-09-10 10:20 | disposition home or self-care (01) ==
PROVIDERS: PCP Internal Medicine; Visit Provider Orthopaedic Surgery
DX: M25.562 Pain in left knee (principal)
CPT/HCPCS: 99213

== ENCOUNTER 2023-09-25 13:20 | Outpatient (AMB) | payer OTHER, MEDICARE, SELFPAY ==
--- NOTE | 2023-09-25 13:21 | HO.SPINEOV ---
Intake Visit Reasons: discuss sx Intake Note: Mr. Temple is here to Discuss Surgery. Medical Assistant Cardiology Required: No Allergies thiopental [From Pentothal] Adverse Reaction (Severe, Verified 09/25/23 13:22) During Dental Surgery- Could not wake up - years ago Black fly Bites Allergy (Uncoded 03/12/23 10:55) Swelling Assessment & Plan Assessment & Plan (1) Lumbar stenosis with neurogenic claudication: Code(s): M48.062 - Spinal stenosis, lumbar region with neurogenic claudication Category: Medical Plan Dear colleague, On 09/25/2023 I saw for preoperative visit Anuj Temple. He was seen several times for neurogenic claudication due to lumbar spinal stenosis. Comes in today stating that his symptoms are really bothering him and he thinks it is time to perform a decompression. He will be scheduled for a right L3-4, L4-5 lumbar decompression for 12/10/2023. He will get cardiology clearance preoperatively. I spent 20 minutes in his consult discussing procedure and expected postoperative course. Raman Easley MD, PhD Spine Fellowship Trained Neurosurgeon Director, [facility] [place] [facility] Coding Level of Care Code Est Pt Level 3 (01080) Diagnoses Lumbar stenosis with neurogenic claudication M48.062
== END 2023-09-25 15:00 | disposition home or self-care (01) ==
PROVIDERS: PCP Internal Medicine; Visit Provider Neurological Surgery
DX: M48.062 Spinal stenosis, lumbar region with neurogenic claudication (principal)
CPT/HCPCS: 99213

== ENCOUNTER → 2023-09-25 13:20 | Outpatient (BNVA) | payer OTHER, MEDICARE, SELFPAY | PROVIDERS: PCP Internal Medicine; Visit Provider Neurological Surgery ==

== ENCOUNTER 2023-12-03 07:58 | Day surgery (SDC) | payer OTHER, MEDICARE, SELFPAY ==
[2023-11-26 12:09] VITALS: BP 159/67; PULSE 74; RESP 16; O2SAT 99; BMI 27.1
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
[2023-11-26 13:47] LABS: Hematocrit 39.6 % (42.0-52.0); Hemoglobin 13.2 g/dl (14.0-18.0); Mean Corpuscular HGB Conc 33.3 g/dl (31.0-36.0); Mean Corpuscular Hemoglobin 30.8 pg (27.0-33.0); Mean Corpuscular Volume 92.3 fL (80.0-98.0); Mean Platelet Volume 8.9 fL (9.4-12.4); Platelet Count 208 X10*3/uL (160-400); Red Blood Count 4.29 X10*6/uL (4.60-5.80); White Blood Count 5.1 X10*3/uL (4.8-10.8)
[2023-11-26 14:06] LABS: Anion Gap 15 (12-20); Blood Urea Nitrogen 23 mg/dL (9-16); Calcium 9.5 mg/dL (8.4-10.2); Carbon Dioxide 26 mmol/L (22-29); Chloride 104 mmol/L (96-108); Creatinine Clr Calc Pharmacy 63.8; Estimated Glomerular Filt Rate > 60; Glucose Random 90 mg/dL (60-115); Potassium 4.7 mmol/L (3.3-5.1); Sodium 140 mmol/L (135-145)
[2023-12-03] VITALS (9 sets, daily range): BP systolic 127–162; BP diastolic 54–78; PULSE 74–90; RESP 16–18; TEMP 36.2–36.6; O2SAT 94–98
--- NOTE | ~2023-12-03 | FL_ITS ---
EXAMINATION: XR FLUOROSCOPY WITH IMAGES CLINICAL INFORMATION: L3-4 and L4-5 right laminotomy. COMPARISON: MR lumbar 10/09/2022. TECHNIQUE: Fluoroscopy provided to: Dr. Easley Fluoroscopy time: 3.8 seconds DAP: 0.7497 Gycm2 Images: 5 FINDINGS: 5 lateral images of the lumbar spine submitted with surgical probes at posterior elements of L3-4 and subsequently L4-5. FL/FL guidance in OR IMPRESSION: Fluoroscopic guidance. Please refer to the full operative report for details. Electronically signed by: Nagi Cabello MD 02/03/2024 03:09 PM EDT
[2023-12-03] MEDS: methocarbamoL 750 MG TABLET PO (08:29)
[2023-12-03] MEDS: Lactated Ringers 1,000 ML 100 ML IVCONT (08:29)
[2023-12-03] MEDS: Gabapentin 300 MG CAPSULE PO (08:29)
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
--- NOTE | 2023-12-03 08:59 | MHC.SHP ---
Pre-Procedural Eval Section A - 24 Hr Update-Section A only Date of Service: 12/03/23 The patient is an INPATIENT: No Section B - Complete if H&P > 30 days Chief Complaint: Spinal stenosis, lumbar region with neurogenic Details of Present Illness: Bilateral leg numbness with walking and standing Allergies: Allergies Allergy/AdvReac Type Severity Reaction Status Date / Time thiopental [From Pentothal] AdvReac Severe During Verified 12/03/23 08:48 Dental Surgery- Could not wake up - years ago Black fly Bites Allergy Severe Swelling Uncoded 12/03/23 08:48 Review of Systems Sugical H&P ROS: Negative: Constitution, Cardiovascular, Respiratory, Neurological, Psychiatric, Hem-Onc, Allergic/Immunologic, Gastrointestinal, Genitourinary, Musculoskeletal, Integumentary, Endocrine and Eyes/Ears/Nose/Throat Exam Surgical H&P Exam: Normal: HEENT, Normal: Heart, Normal: Lungs, Normal: Extremities, Normal: Abdomen, Normal: Skin and Normal: Neurological (Awake, alert) Plan Diagnosis/Plan: Unchanged I have reviewed the history and physical and performed a pertinent physical examination on my patient. No changes have occurred unless specified. Right L3-4 and L4-5 lumbar decompression Time Spent With Patient Time: Total time managing care of this patient today __ 10 __ minutes.
--- NOTE | 2023-12-03 11:31 | W.PM.OPN ---
Operative Note Operative Note Date of Service: 12/03/23 Narrative: Preoperative Diagnosis: L3-4 and L4-5 spinal stenosis/lateral recess stenosis/neural foraminal stenosis Operation: Right L3-4 and L4-5 Laminotomy, Partial facetectomy and foraminotomy with use of microscope Consent Informed Consent was obtained for this operation. I have explained the nature, purpose and benefits of the operation. I have discussed the risks and benefit of the operation including possible complications or adverse events with patient/family. Alternative(s) were discussed with the patient with their relative benefits and risks as well as the consequences of not accepting the operation were included in obtaining consent. Surgeon: LUKE BURCH MD, PHD Procedure Assisted By: Kameron Castañeda Description of Procedure This patient is suffering from neurogenic claudication. MRI shows spinal stenosis at L3-4 and L4-5 on top of a lumbar degenerative scoliosis. I offered the patient a right-sided approach for bilateral decompression. The procedure complications were explained. The patient was consented. The patient was brought to the operating room and endotracheally intubated. The patient was turned in prone position on the Rhys frame. Prep and drape was done followed by timeout. The Physician resident programs assistant provided access. A mid lumbar incision was made followed by release of the paravertebral muscle bilaterally to expose the L3-L5 laminae and facet joints. An intraoperative x-ray was obtained to confirm the correct level. The microscope was brought in. I took over the procedure. The high-speed drill was used to do a right L3-4 and L4-5 laminotomy until flavum ligament was reached. First I address the L4-5 level. A partial facetectomy was done after which the flavum ligament was opened and resected to decompress the underlying thecal sac. The L5 nerve root was decompressed in the lateral recess until disappeared in the foramen. I crossed over the midline and decompressed as much as are good on the contralateral side. Then I turned the attention to the L3-4 level. Again a partial facetectomy was done. The significant hypertrophied facet joint was encountered as well as hypertrophied flavum ligament. Finally I was able to reach the underlying dura and removed the layers of flavum ligament to decompress the thecal sac. I undercut the spinous process and reached contralaterally to decompress more of the thecal sac. Finally I made sure that the right L4 nerve root at sufficient space in the lateral recess. Extensive hemostasis was done as this patient was still on aspirin. In the end good hemostasis was obtained. The physician resident programs assistant close the Incision in 2 layers. Steri-Strips were used to approximate incision. An OpSite with Tegaderm was used to cover the incision. All sponge needle counts were correct. Patient was extubated and transported in stable is to recovery room. Anesthesia: General Estimated Blood Loss (ml): 50 mL Complications: None Duration of Surgery: 90 Minutes Postoperative Plan: Discharge to home
--- NOTE | 2023-12-03 11:37 | P.DS_ITS ---
DS: Providers Provider Date of Service: 12/03/23 Primary care physician: Katia Edward MD DS: Summary Time Attestation Discharge Coordination Time (in mins): 10 Quality: Safe Use of Opioids Does Pt have an Active Cancer Diagnosis on the Problem List?: No Quality: Stroke Does the patient have a stroke diagnosis?: No Physical Exam Vital Signs: Vital Signs: Last Vital Signs Temp 97.2 F 12/03/23 08:41 Pulse 90 12/03/23 08:41 Resp 16 12/03/23 08:41 BP 162/78 H 12/03/23 08:41 Pulse Ox 96 12/03/23 08:41 O2 Del Method Room Air 12/03/23 08:41 BMI result Body Mass Index 27.1 Discharge Plan Discharge Patient Disposition: Home, Self-Care Referrals: Katia Edward MD [Primary Care Provider] - 1 Week Discharge Medications: New oxycodone 5 mg tablet 5 mg PO Q6H PRN (Reason: severe pain (scale score 7-10)) Qty: 30 0RF Rx Instructions: Partial Fill upon patient request. No Action (DME) cane Device See Rx Instructions .MEDSUPPLY Qty: 1 0RF Rx Instructions: As directed atorvastatin 40 mg tablet 1 tab PO BEDTIME famotidine 20 mg Tablet 20 mg PO DAILY PRN (Reason: Acid Reflux) acetaminophen 325 mg Tablet 650 mg PO Q6H PRN (Reason: Pain, Mild (Pain Scale 1-3)) 30 Days Qty: 240 0RF aspirin 81 mg Tablet,Delayed Release (Dr/Ec) 81 mg PO DAILY losartan 25 mg tablet 25 mg PO DAILY Discharge Orders: Discharge Order (Routine); Ordered 12/03/23 Ordered By: Quique Mars Diet: Advance to usual diet Activity on Discharge: As tolerated Activity Restrictions/Additional Instructions: After your spinal surgery we ask you to observe the following restrictions/guidelines: Activity: It is normal to feel some discomfort as you increase your activity, but that will improve with time. We ask you avoid heavy lifting or acitivities that cause pain. As a general rule, 8lbs is a safe limit for lifting right after surgery. Walk as much as you feel comfortable but not to exhaustion. You will feel extra tired the first few days after surgery. Stay well hydrated. It is OK to walk up and down stairs You may return to driving when you are off narcotics (such as vicodin, oxycodone, dilaudid, etc), and you are back to normal functional capacity. If you have any concerns please check with office before driving. Return to work is specific to each patient and each surgery, so please speak with your doctor/PA at first follow up. Please bring paperwork such as FMLA at that time if you need it filled out. Medications: We will give you a short supply of narcotics after surgery (usually one weeks worth). If you need more please call the office but do not use more than prescribed. You will need to give our office 48 hours notice if you need narcotics refilled and we do not fill narcotics on weekends or evenings. If you are on a narcotic, it is a good idea to take a stool softener such as colace or senna to avoid constipation If you take blood thinner such as aspirin, Plavix, Coumadin, Effient, Eliquis etc for conditions such as Afib, DVT, Pulmonary embolus, coronary disease, stents etc please speak with your surgeon about specific details as to when you can resume these medications. You can resume NSAIDs on post op day 1 (eg: Motrin, Naproxen, etc). Follow up: Please call the office, , after surgery to arrange a 3 week follow up for wound check. Wound Care: You may remove your dressing on the first day after surgery. ?You may ?leave open to air. Please do not remove the steri strips underneath. they will fall off on their own in one week. IT IS NORMAL FOR THE WOUND TO OOZE OR BE BLOODY FOR A FEW DAYS AFTER SURGERY. ?IF THIS HAPPENS JUST PLACE NEW DRESSING OVER IT TO AVOID STAINING CLOTHES. You may shower on post op day # 1 We ask that you do not let the water soak the wound. If it does get wet, just towel dry lightly. Please do not scrub your incision or place any type of chemical/ointment on the wound. No tub baths, pools or jacuzzis for one month. If you have any leaking or redness from your wound, or fevers, please call the office. Print Language: Bulgarian
--- NOTE | 2023-12-03 14:26 | HO.POSTANES ---
Post Anesthesia Evaluation Post Anesthesia Evaluation Date of Service: 12/03/23 Vital Signs: Vital Signs Temp Pulse Resp BP Pulse Ox O2 Del Method O2 Flow Rate 12/03/23 13:06 76 16 141/63 H 97 Room Air 12/03/23 12:53 97.2 F 74 16 137/65 96 Room Air 12/03/23 12:38 80 16 134/64 96 Room Air 12/03/23 12:23 78 17 135/69 94 Room Air 12/03/23 12:08 82 17 132/62 94 Room Air 12/03/23 12:03 86 17 127/54 L 94 Room Air 12/03/23 11:58 84 18 129/55 L 97 Simple Mask 4 12/03/23 11:53 97.9 F 84 18 146/64 H 98 Simple Mask 6 12/03/23 08:41 97.2 F 90 16 162/78 H 96 Room Air Anesthesia: General Endotracheal-GETA Mental Status: Awake Pain Control: Satisfactory Nausea/Vomiting: None Hydration: Adequate Anesthesia-Related Issues: No Anes. Related Issues
== END 2023-12-03 14:05 | disposition home or self-care (01) ==
PROVIDERS: Nurse Practitioner; PCP Internal Medicine; Visit Provider Neurological Surgery
PROC: (CPT 63047; principal; 2023-12-03 10:50)
DX: M48.062 Spinal stenosis, lumbar region with neurogenic claudication (principal); I25.10 Atherosclerotic heart disease of native coronary artery without angina pectoris; Z95.1 Presence of aortocoronary bypass graft; I25.2 Old myocardial infarction; I10 Essential (primary) hypertension; I35.9 Nonrheumatic aortic valve disorder, unspecified; E78.5 Hyperlipidemia, unspecified; Z79.899 Other long term (current) drug therapy; Z79.82 Long term (current) use of aspirin; Z87.891 Personal history of nicotine dependence
CPT/HCPCS: 63047; 63048; 36415; 80048; 85027; J0131; J0690; J1100; J2250; J2371; J2405; J2704; J3010; Q4100

== ENCOUNTER → 2023-12-03 07:58 | Outpatient (BNV) | payer OTHER, MEDICARE, SELFPAY | PROVIDERS: PCP Internal Medicine; Visit Provider Neurological Surgery | DX: M48.062 Spinal stenosis, lumbar region with neurogenic claudication (principal) | CPT/HCPCS: 63047; 63048; 99499 ==

== ENCOUNTER 2023-12-15 09:57 | Outpatient (REF) | payer OTHER, MEDICARE, SELFPAY ==
--- NOTE | ~2023-12-15 | XR_ITS ---
EXAMINATION: XR KNEE, LEFT CLINICAL INFORMATION: Pain in the left knee COMPARISON: X-rays of the left knee February 2023 TECHNIQUE: Four views of the left knee. FINDINGS: There is a total knee arthroplasty in place. The components are in the usual position and are unchanged. There is no periprosthetic fracture or surrounding abnormal lucency. There is no effusion. The surrounding soft tissues are normal. XR/XR knee LT 3V IMPRESSION: Left total knee arthroplasty without complication by x-ray. Electronically signed by: Haider Mckeon MD 01/11/2024 01:03 PM EDT
== END 2023-12-15 09:58 | disposition home or self-care (01) ==
LOC: HO.HOSX 09:57
PROVIDERS: Visit Provider Orthopaedic Surgery
DX: M25.562 Pain in left knee (principal); Z96.652 Presence of left artificial knee joint
CPT/HCPCS: 73562

== ENCOUNTER 2023-12-15 11:06 | Outpatient (AMB) | payer OTHER, MEDICARE, SELFPAY ==
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
== END 2023-12-15 11:53 | disposition home or self-care (01) ==
PROVIDERS: PCP Internal Medicine; Visit Provider Orthopaedic Surgery
DX: Z47.1 Aftercare following joint replacement surgery (principal); Z96.652 Presence of left artificial knee joint
CPT/HCPCS: 99213

== ENCOUNTER 2023-12-24 14:36 | Outpatient (AMB) | payer OTHER, MEDICARE, SELFPAY ==
--- NOTE | 2023-12-24 14:57 | HO.SPINEOV ---
Intake Visit Reasons: 1st post op Intake Note: Mr. Temple is here today for his 1st post-op visit. Toll Transmission Worker Required: No Allergies thiopental [From Pentothal] Adverse Reaction (Severe, Verified 12/24/23 14:58) During Dental Surgery- Could not wake up - years ago Black fly Bites Allergy (Severe, Uncoded 12/15/23 11:29) Swelling Assessment & Plan Assessment & Plan (1) Lumbar stenosis with neurogenic claudication: Code(s): M48.062 - Spinal stenosis, lumbar region with neurogenic claudication Category: Medical Plan Mr Temple is 3 weeks out from his L3-4, right L4-5 decompression. Symptomatically he is improved from the standpoint of the leg pain. He started to increase his activities. He is interested in golfing but I told him not to do it just yet. His wound healed up beautifully. We discussed activity guidelines, restrictions and expectations after lumbar decompression. I would like to see him back in 4-6 weeks for final postoperative visit. Kameron Easley MD, PhD [facility] Coding Level of Care Code Global (64658) Diagnoses Lumbar stenosis with neurogenic claudication M48.062
== END 2023-12-24 15:15 | disposition home or self-care (01) ==
PROVIDERS: PCP Internal Medicine; Visit Provider Physician Assistant
DX: M48.062 Spinal stenosis, lumbar region with neurogenic claudication (principal)
CPT/HCPCS: 99024

== ENCOUNTER → 2023-12-24 14:36 | Outpatient (BNVA) | payer OTHER, MEDICARE, SELFPAY | PROVIDERS: PCP Internal Medicine; Visit Provider Physician Assistant ==

== ENCOUNTER → 2024-01-29 10:51 | Outpatient (BNVA) | payer OTHER, MEDICARE, SELFPAY | PROVIDERS: PCP Internal Medicine; Visit Provider Physician Assistant ==

== ENCOUNTER 2024-03-03 13:48 | Outpatient (AMB) | payer MEDICARE, OTHER, SELFPAY ==
--- NOTE | 2024-03-03 13:55 | A.SPINEOV_ITS ---
Intake Visit Reasons: 2nd Post OP Intake Note: Mr. Temple is here today for his 2nd post-op appointment. Lead Pharmacy Technician Required: No Allergies thiopental [From Pentothal] Adverse Reaction (Severe, Verified 12/24/23 14:58) During Dental Surgery- Could not wake up - years ago Black fly Bites Allergy (Severe, Uncoded 12/15/23 11:29) Swelling Assessment & Plan Assessment & Plan (1) Lumbar stenosis with neurogenic claudication: Code(s): M48.062 - Spinal stenosis, lumbar region with neurogenic claudication Category: Medical Plan Mr Temple is here in follow-up, he is about 3 months out from his L3-4, L4-5 decompression. He is still getting some numbness in his anterior thigh if he stands for more than 15 minutes or so but otherwise is doing well. He has resumed a lot of his activities. He has not started bowling or golfing yet. We discussed activity guidelines, restrictions and expectations after lumbar decompression. At this point I really do not have any specific restrictions for him. He is interested in going back to PT in order to rehabilitate to get ready for cough. This seems reasonable. I told him we would be happy to give him a referral to PT if needed. He can see us back on an as-needed basis. Kameron Easley MD, PhD [facility] Coding Level of Care Code Global (05264) Diagnoses Lumbar stenosis with neurogenic claudication M48.062
== END 2024-03-03 14:50 | disposition home or self-care (01) ==
PROVIDERS: PCP Internal Medicine; Visit Provider Physician Assistant
DX: M48.062 Spinal stenosis, lumbar region with neurogenic claudication (principal)
CPT/HCPCS: 99212

== ENCOUNTER → 2024-03-03 13:48 | Outpatient (BNVA) | payer OTHER, MEDICARE, SELFPAY | PROVIDERS: PCP Internal Medicine; Visit Provider Physician Assistant | DX: Z48.89 Encounter for other specified surgical aftercare (principal) | CPT/HCPCS: 99212 ==

== ENCOUNTER 2024-07-08 13:16 | Outpatient (REF) | payer OTHER, MEDICARE, SELFPAY ==
--- NOTE | ~2024-07-08 | XR_ITS ---
EXAMINATION: Lumbar spine 4 views. CLINICAL INDICATION: Low back pain with neurogenic claudication. COMPARISON: MRI lumbar spine 10/09/2022 FINDINGS: There is normal lumbar lordosis with mild scoliosis. The vertebral heights and alignment is normal. There is loss of disc height virtually at every disc levels with moderate spondylosis throughout lumbar spine. No visible acute fracture, dislocation or lytic process seen. XR/XR lumbar spine 4V min IMPRESSION: Scoliosis with degenerative disc changes virtually at every disc levels with spondylosis. No acute fracture, lytic or sclerotic process seen. Electronically signed by: Adam Rudd MD 07/11/2024 10:19 AM REMI
--- OUTSIDE RECORDS SUMMARY | 2024-07-08 16:05 | XMS_ITS | Encounter Summary ---
Author Organization [facility] Address [address] [facility] 7 [place] [address] Care Team Providers Care Casting Agent Name Role Phone Unavailable Primary Care Provider Unavailabl e Encounter Details Date Type Department Care Team (Latest Contact Info) Description 06/23/2018 Abstract [facility] CONVERSIONS Dental, Provider, DDS Social History [...]
--- OUTSIDE RECORDS SUMMARY | 2024-07-08 16:05 | XMS_ITS | Encounter Summary ---
Author Organization [facility] Address [address] [place] [address] Care Team Providers Care Loom Winder Tender Name Role Phone Pcp, No Primary Care Provider Unavailabl e Sri Curtis MD Unavailable Alan Angela MD Unavailable [phone] Ander Buck MD PhD Primary Care Provider [phone] Pcp, No Primary Care Provider Unavailabl e Encounter Details Date Type Department Care Team (Late st Contact Info) Description 03/23/2017 Abstract [facility] [place] [address] Bess May, RN [address] [place] [address] CAD, multiple vessel Social History Tobacco Use [...] vessel documented in this encounter Care Teams Loom Winder Tender Relationship Specialty Start Date End Date Pcp, No PCP - General General Medicine 03/20/17 03/26/17 Ander Buck MD PhD [address] [place] [address] PCP - General Family Medicine 03/27/17 03/28/17 Pcp, No PCP - General General Medicine 04/20/17 Sri Curtis MD Human Resources Project Coordinator Cardiovascular Disease 03/23/17 Alan Angela MD [address] [place] [address] Surgeon Surgery, Cardiac 03/23/17 documented as of this encounter
--- OUTSIDE RECORDS SUMMARY | 2024-07-08 16:05 | XMS_ITS | Clinical Summary ---
Author Organization [facility] Address [address] [place] [address] Care Team Providers Care Fitting Supervisor Name Role Phone Sri Curtis MD Unavailable Alan Angela MD Unavailable [phone] Pcp, No Primary Care Provider Unavailabl [...] Inactivated Comments 04/08/2017 5:20 PM Care Teams Fitting Supervisor Relationship Specialty Start Date End Date Pcp, No PCP - General General Medicine 04/20/17 Sri Curtis MD Carbonizer Cardiovascular Disease 03/23/17 Alan Angela MD [address] [address] Surgeon Surgery, Cardiac 03/23/17
--- OUTSIDE RECORDS SUMMARY | 2024-07-08 16:05 | XMS_ITS | Encounter Summary ---
Author Organization [facility] Address [address] [place] [address] Care Team Providers Care Senior Project Leader/Team Lead Name Role Phone Pcp, No Primary Care Provider Unavailabl e Sri Curtis MD Unavailable Alan Angela MD Unavailable [phone] Ander Buck MD PhD Primary Care Provider [phone] Pcp, No Primary Care Provider Unavailabl e Encounter Details Date Type Department Care Team (Latest Contact Info) Description 03/26/2017 Prep for Surgery [facility] [place] [address] Bess May, RN [address] [place] [address] CAD, multiple vessel (Primary Dx); Preop testing; [...] Protime-INR (03/27/2017 1:00 PM EST) INR 1.0 [facility] Comment: Reference Range ? 0.9-1.1 Moderate-intensity Warfarin Therapy 2.0-3.0 Higher-intensity Warfarin Therapy ?? 3.0-4.0 Prothrombin Time (PT) 10.7 9.0 - 11.5 sec [facility] Comment: For more information on this test, go to: http://education.OfferWire/faq/NLV507 Blood specimen (specimen) Blood specimen / Unknown 03/27/2017 1:00 PM EST 03/27/2017 1:00 PM EST Narrative [facility] - 03/28/2017 4:48 AM EST FASTING:NO Resulting Agency Comment Performing Organization Information: ?Site ID: [id number] ?Name: [facility] ?Address: [address] [place] [address], [place] [address] ?Director: Camelia Bassett MD Alan Angela MD LAB BLOOD ORDERABLES [facility] [address] [place] [address], [place] [address] * Complete Blood Count, with [...] Performing Organization Information: ?Site ID: [id number] ?Name: [facility] ?Address: [address] [place] [address], [place] [address] ?Director: Camelia Bassett MD Alan Angela MD LAB BLOOD ORDERABLES [facility] [address] [place] [address], [place] [address] * (ABNORMAL) Basic Metabolic Panel [...] approximately 13% higher for people identified as -[place]uvian. eGFR Non- 80 > OR = 60 mL/min/1 .73m2 [facility] eGFR 92 > OR = 60 mL/min/1 .73m2 [facility] BUN/Creatinine Ratio NOT APPLICABLE 6 - 22 (calc) [facility] Sodium 141 135 - 146 mmol/L [facility] Potassium 4.8 3.5 - 5.3 mmol/L [facility] Chloride 104 98 - 110 mmol/L [facility] CO2 27 20 - 31 mmol/L [facility] Calcium 9.3 8.6 - 10.3 mg/dL [facility] Blood specimen (specimen) Blood specimen / Unknown 03/27/2017 1:00 PM EST 03/27/2017 1:00 PM EST Narrative [facility] - 03/28/2017 4:48 AM EST FASTING:NO Resulting Agency Comment Performing Organization Information: ?Site ID: [id number] ?Name: [facility] ?Address: [address] [place] [address], [facility] [place] [address] ?Director: Camelia Bassett MD Alan Angela MD LAB BLOOD ORDERABLES [facility] [address] [place] [address], [place] [address] documented in this encounter Visit Diagnoses Diagnosis CAD, multiple vessel- Primary Preop testing Unspecified pre-operative examination Angina effort Other and unspecified angina pectoris documented in this encounter Care Teams Senior Project Leader/Team Lead Relationship Specialty Start Date End Date Pcp, No PCP - General General Medicine 03/20/17 03/26/17 Ander Buck MD PhD [address] [place] [address] PCP - General Family Medicine 03/27/17 03/28/17 Pcp, No PCP - General General Medicine 04/20/17 Sri Curtis MD Hat Parts Cutter Machine Cardiovascular Disease 03/23/17 Alan Angela MD [address] [place] [address] Surgeon Surgery, Cardiac 03/23/17 documented as of this encounter
--- OUTSIDE RECORDS SUMMARY | 2024-07-08 16:05 | XMS_ITS | Clinical Summary ---
Author Organization [email or web address] Address [address] [facility] 7t [place] [address] Care Team Providers Care Airset Caster Name Role Phone Unavailable Primary Care Provider [...]
--- OUTSIDE RECORDS SUMMARY | 2024-07-08 16:06 | XMS_ITS | Encounter Summary ---
Author Organization [facility] Address [address] [place] [address] Care Team Providers Care Toll Collector Name Role Phone Sri Curtis MD Unavailable Alan Angela MD Unavailable [phone] Pcp, No Primary Care Provider Unavailabl e Encounter Details Date Type Department Care Team (Late st Contact Info) Description 04/16/2017 Abstract [facility] [place] [address] Bess May, ALLAN [address] [place] [address] Social History Tobacco Use Types Packs/Day Years [...] on filedocumented in this encounter Care Teams Toll Collector Relationship Specialty Start Date End Date Pcp, No PCP - General General Medicine 04/20/17 Sri Curtis MD Ems Director Cardiovascular Disease 03/23/17 Alan Angela MD [address] [address] Surgeon Surgery, Cardiac 03/23/17 documented as of this encounter
== END 2024-07-08 13:17 | disposition home or self-care (01) ==
LOC: HO.HOSX 13:16
PROVIDERS: Visit Provider Physician Assistant
DX: M48.062 Spinal stenosis, lumbar region with neurogenic claudication (principal)
CPT/HCPCS: 72110

== ENCOUNTER 2024-07-08 13:16 | Outpatient (AMB) | payer OTHER, MEDICARE, SELFPAY ==
--- NOTE | 2024-07-08 13:35 | A.SPINEOV_ITS ---
Intake Visit Reasons: Numbness R leg Intake Note: Mr. Temple is here today c/o numbness of the legs. Assistant Front Office Manager Required: No Allergies thiopental [From Pentothal] Adverse Reaction (Severe, Verified 07/08/24 13:36) During Dental Surgery- Could not wake up - years ago Black fly Bites Allergy (Severe, Uncoded 12/15/23 11:29) Swelling Assessment & Plan Assessment & Plan (1) Lumbar stenosis with neurogenic claudication: Code(s): M48.062 - Spinal stenosis, lumbar region with neurogenic claudication Category: Medical Plan Mr Temple is back in the office in follow-up. He underwent an L3-4, L4-5 decompression last year. Initially was doing well but he has had a recurrence of the right anterior thigh pain and numbness. It has gotten to the point now where it is starting to be very severe, he is taking Tylenol throughout the day all day and having a hard time doing many of the activities he enjoys. The other day he was standing just washing dishes and it felt like he was going to fall down because of leg was going to give out. He can not walk for more than maybe 200 yd before he has to sit down again. He is very frustrated that he was doing well and now he is returning to where he was around surgery. I think we should look into this with a lumbar MRI with and without hortensia 0 and see if there is some kind of recurrence of the stenosis. Exam showed he had no weakness but he did have absent reflexes at the patella bilaterally. I called him in Valium to help him get through the MRI. Total amount of time spent in this visit was 20 minutes in discussion of symptoms, ordering lumbar imaging and subsequent plan of care Kameron Easley MD,PhD [facility] Orders: Orders MR lumbar spine wo/w con Today M48.062 - Spinal stenosis, lumbar region with neurogenic claudication Medications: New diazepam (Valium) take 1-2 tablets po 30' prior to mri 10 mg (2 x 5 mg) PO ONCE PRN 2 tabs 0RF claustraphobia Coding Level of Care Code Est Pt Level 3 (31294) Diagnoses Lumbar stenosis with neurogenic claudication M48.062
--- OUTSIDE RECORDS SUMMARY | 2024-07-08 15:20 | XMS_ITS | Encounter Summary ---
Author Organization [facility] Address [address] [place] [address] Care Team Providers Care Veneer Jointer Returner Name Role Phone Pcp, No Primary Care Provider Unavailabl e Sri Crutis MD Unavailable Alan Angela MD Unavailable [phone] Ander Buck MD PhD Primary Care Provider [phone]- [phone] Pcp, No Primary Care Provider Unavailabl e Encounter Details Date Type Department Care Team (Late st Contact Info) Description 03/23/2017 Abstract [facility] [place] [address] Bess May, RN [address] [place] [address] CAD, multiple vessel Social History Tobacco Use Types Packs/Day Years Used Date Smoking Tobacco: Former Cigarettes 0.5 30 Smokeless Tobacco: Former Alcohol Use Standard Drinks/Week Comments Yes 3 (1 standard drink = 0.6 oz pur e alcohol) Sex and Gender Information Value Date Recorded Sex Assigned at Not on file Gender Identity Not on file Sexual Orientation Not on file documented as of this encounter Plan of Treatment Not on file documented as of this encounter Visit Diagnoses Diagnosis CAD, multiple vessel documented in this encounter Care Teams Veneer Jointer Returner Relationship Specialty Start Date End Date Pcp, No PCP - General General Medicine 03/20/17 03/26/17 Ander Buck MD PhD [address] [place] [id number] PCP - General Family Medicine 03/27/17 03/28/17 Pcp, No PCP - General General Medicine 04/20/17 Sri Curtis MD Rib Builder Cardiovascular Disease 03/23/17 Alan Angela MD [address] [place] [id number] Surgeon Surgery, Cardiac 03/23/17 documented as of this encounter
--- OUTSIDE RECORDS SUMMARY | 2024-07-08 15:20 | XMS_ITS | Clinical Summary ---
Author Organization [employer] Address [address] [place] [address] Care Team Providers Care 3Rd Grade Teacher Name Role Phone Unavailable Primary Care Provider Unavailabl e Social History Tobacco Use Types Packs/Day Years Used Date Smoking Tobacco: Never Assessed Sex and Gender Information Value Date Recorded Sex Assigned at Male 03/10/2022 10:25 AM EDT Legal Sex Male 10:25 AM EDT Gender Identity Not on file Sexual Orientation Not on file Plan of Treatment Health Maintenance Due Date Last Done Comments Depression Screening 1944 Lipid Panel 1944 Alcohol/Substance Use Screening 1956 Tobacco Screening 1957 DTaP/Tdap/Td Vaccines (1 - Tdap) 07/25/1963 Pneumococcal Vaccine: 50+ Ye ars (1 of 1 - PCV) 1994 Zoster Vaccines (1 of 2) 1994 RSV Patients and Pa tients Aged 60 years or older (1 - 1-dose 75+ series) 07/25/2019 COVID-19 Vaccine ( - 2023-2 5 season) 2024 Influenza Vaccine (#1) 2024 HIB Vaccines Aged Out No longer eligi ble based on patient's age to complete this topic HPV Vaccines Aged Out No longer eligi ble based on patient's age to complete this topic Hepatitis A Vaccines Aged Out No long er eligible based on patient's age to complete this topic Hepatitis B Vaccines Aged Out No long er eligible based on patient's age to complete this topic IPV Vaccines Aged Out No longer eligi ble based on patient's age to complete this topic Meningococcal Vaccine Aged Out No jocelyn elisa eligible based on patient's age to complete this topic RSV under 20 months Aged Out No longe r eligible based on patient's age to complete this topic Rotavirus Vaccines Aged Out No longer eligible based on patient's age to complete this topic
--- OUTSIDE RECORDS SUMMARY | 2024-07-08 15:20 | XMS_ITS | Encounter Summary ---
Author Organization [facility] Address [address] [facility] [address] [facility] [address] [place] [address] Care Team Providers Care Meat Packer Name Role Phone Unavailable Primary Care Provider Unavailabl e Encounter Details Date Type Department Care Team (Latest Contact Info) Description 06/23/2018 Abstract [facility] CONVERSIONS Dental, Provider, DDS Social History Tobacco Use Types Packs/Day Years Used Date Smoking Tobacco: Never Assessed Sex and Gender Information Value Date Recorded Sex Assigned at Male 03/10/2022 10:25 AM EDT Legal Sex Male 10:25 AM EDT Gender Identity Not on file Sexual Orientation Not on file documented as of this encounter Plan of Treatment Not on file documented as of this encounter Visit Diagnoses Not on filedocumented in this encounter
--- OUTSIDE RECORDS SUMMARY | 2024-07-08 15:21 | XMS_ITS | Encounter Summary ---
Author Organization [facility] Address [address] [place] [address] Care Team Providers Care Joint Cutter Name Role Phone Pcp, No Primary Care Provider Unavailabl e Sri Curtis MD Unavailable Alan Angela MD Unavailable [phone] Ander Buck MD PhD Primary Care Provider [phone] Pcp, No Primary Care Provider Unavailabl e Encounter Details Date Type Department Care Team (Latest Contact Info) Description 03/26/2017 Prep for Surgery [facility] [place] [address] Bess May, RN [address] [place] [address] CAD, multiple vessel (Primary Dx); Preop testing; Angina effort (HCC) Social History Tobacco Use Types Packs/Day Years Used Date Smoking Tobacco: Former Cigarettes 0.5 30 Alcohol Use Standard Drinks/Week Comments Yes 3 (1 standard drink = 0.6 oz pur e alcohol) Sex and Gender Information Value Date Recorded Sex Assigned at Not on file Gender Identity Not on file Sexual Orientation Not on file documented as of this encounter Plan of Treatment Scheduled Orders Name Type Priority Associated Diagnoses Orde r Schedule Type and Screen Blood Bank Routine CAD, multiple vessel Preop testing Angina effort (HCC) Ordered: 03/26/2017 documented as of this encounter Procedures Procedure Name Priority Date/Time Associated Diagnosis Comments COMPLETE BLOOD COUNT, WITH DIFFERENTIAL Routine 03/27/2017 1:00 PM EST CAD, multiple vessel Preop testing Angina effort (HCC) PROTIME-INR Routine 03/27/2017 1:00 PM EST CAD, multiple vessel Preop testing Angina effort (HCC) BASIC METABOLIC PANEL Routine 03/27/2017 1:00 PM EST CAD, multiple vessel Preop testing Angina effort (HCC) documented in this encounter Results * Protime-INR (03/27/2017 1:00 PM EST) INR 1.0 [facility] Comment: Reference Range ? 0.9-1.1 Moderate-intensity Warfarin Therapy 2.0-3.0 Higher-intensity Warfarin Therapy ?? 3.0-4.0 Prothrombin Time (PT) 10.7 9.0 - 11.5 sec [facility] Comment: For more information on this test, go to: http://education.[employer]/faq/PMR222 Blood specimen (specimen) Blood specimen / Unknown 03/27/2017 1:00 PM EST 03/27/2017 1:00 PM EST Narrative [facility] - 03/28/2017 4:48 AM EST FASTING:NO Resulting Agency Comment Performing Organization Information: ?Site ID: [id number] ?Name: [employer] ?Address: [address] [place] [address], [place] [address] ?Director: Camelia Bassett MD Alan Angela MD LAB BLOOD ORDERABLES [facility] [address] [place] [address], [place] [address] * Complete Blood Count, with Differential (03/27/2017 1:00 PM EST) White Blood Cell Count 5.2 3.8 - 10.8 Thousand/u L [facility] Red Blood Cell Count 4.40 4.20 - 5.80 Million/uL [facility] Hemoglobin 13.7 13.2 - 17.1 g/dL [facility] Hematocrit 40.5 38.5 - 50.0 % [facility] MCV 92.0 80.0 - 100.0 fL [facility] MCH 31.2 27.0 - 33.0 pg [facility] MCHC 33.9 32.0 - 36.0 g/dL [facility] RDW 13.3 11.0 - 15.0 % [facility] Platelet Count 266 140 - 400 Thousand/u L [facility] MPV 7.7 7.5 - 12.5 fL [facility] Abs Neutrophils Auto 3,453 1,500 - 7,800 cells/uL [facility] Abs Lymphocytes Auto 1,134 850 - 3,900 cells/uL [facility] Abs Monocytes Auto 525 200 - 950 cells/uL [facility] Abs Eosinophils Auto 57 15 - 500 cells/uL [facility] Abs Basophils Auto 31 0 - 200 cells/uL [facility] Neutrophils Auto 66.4 % [facility] Lymphocytes Auto 21.8 % [facility] Monocytes Auto 10.1 % [facility] Eosinophils Auto 1.1 % [facility] Basophils Auto 0.6 % [facility] Blood specimen (specimen) Blood specimen / Unknown 03/27/2017 1:00 PM EST 03/27/2017 1:00 PM EST Narrative [facility] - 03/28/2017 4:48 AM EST FASTING:NO Resulting Agency Comment Performing Organization Information: ?Site ID: [id number] ?Name: [employer] ?Address: [address] [place] [address], [place] [address] ?Director: Camelia Bassett MD Alan Angela MD LAB BLOOD ORDERABLES [facility] [address] [place] [address], [place] [address] * (ABNORMAL) Basic Metabolic Panel (03/27/2017 1:00 PM EST) Glucose 108(H) 65 - 99 mg/dL [facility] Comment: ? Fasting reference interval For someone without known diabetes, a glucose value between 100 and 125 mg/dL is consistent with prediabetes and should be confirmed with a follow-up test. Blood Urea Nitrogen (BUN) 17 7 - 25 mg/dL [facility] Creatinine 0.95 0.70 - 1.18 mg/dL [facility] Comment: For patients >49 years of age, the reference limit for Creatinine is approximately 13% higher for people identified as -Maced[place]. eGFR Non- 80 > OR = 60 mL/min/1 .73m2 [facility] eGFR 92 > OR = 60 mL/min/1 .73m2 [facility] BUN/Creatinine Ratio NOT APPLICABLE 6 - 22 (calc) [facility] Sodium 141 135 - 146 mmol/L [facility] Potassium 4.8 3.5 - 5.3 mmol/L [facility] Chloride 104 98 - 110 mmol/L [facility] CO2 27 20 - 31 mmol/L [facility] Calcium 9.3 8.6 - 10.3 mg/dL [facility] Blood specimen (specimen) Blood specimen / Unknown 03/27/2017 1:00 PM EST 03/27/2017 1:00 PM EST Narrative [facility] - 03/28/2017 4:48 AM EST FASTING:NO Resulting Agency Comment Performing Organization Information: ?Site ID: [id number] ?Name: [employer] [facility] ?Address: [address] [place] [address], [facility] [place] [address] ?Director: Camelia Bassett MD Alan Angela MD LAB BLOOD ORDERABLES [facility] [address] [place] [address], [place] [address] documented in this encounter Visit Diagnoses Diagnosis CAD, multiple vessel- Primary Preop testing Unspecified pre-operative examination Angina effort Other and unspecified angina pectoris documented in this encounter Care Teams Joint Cutter Relationship Specialty Start Date End Date Pcp, No PCP - General General Medicine 03/20/17 03/26/17 Ander Buck MD PhD [address] [place] [id number] PCP - General Family Medicine 03/27/17 03/28/17 Pcp, No PCP - General General Medicine 04/20/17 Sri Curtis MD District Sales Manager Cardiovascular Disease 03/23/17 Alan Angela MD [address] [place] [address] Surgeon Surgery, Cardiac 03/23/17 documented as of this encounter
--- OUTSIDE RECORDS SUMMARY | 2024-07-08 15:21 | XMS_ITS | Data Portability ---
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 Completed 200708/26/2010 Not Available [facility] 3 03:02:55 Neck pain 70180369 Completed 200108/05/2011 Not Available [facility] 3 03:02:55 Disorder of skin and/or subcutan eous tissue 68795435 Completed 08/05/2011 Not Available [facility] 3 03:02:55 Disorder of lipid metaboli sm 995156185 Completed 200108/26/2010 Not Available [facility] 3 03:02:55 Neoplasm of uncertai n behavior of skin 27415324 Completed 200108/05/2011 Not Available [facility] 3 03:02:55 Generali zed abdomina l pain 527246106 Completed 200308/26/2010 Not Available [facility] 3 03:02:55 Hyperlip idemia 98314985 Completed 200308/26/2010 Not Available [facility] 3 03:02:55 Backache 072634637 Completed 200308/05/2011 Not Available [facility] 3 03:02:55 Urethrit is 90676037 Completed 08/26/2010 Not Available [facility] 3 03:02:55 Acute bronchit is 71848528 Completed 200308/05/2011 Not Available [facility] 3 03:02:55 Bronchit is 48556189 Completed 08/05/2011 Not Available [facility] 3 03:02:55 Malaise and fatigue 847792508 Completed 200008/26/2010 Not Available [facility] 3 03:02:55 Disorder of oral soft tissues 71052819 Completed 200108/26/2010 Not Available [facility] 3 03:02:55 Headache 56981215 Completed 200708/26/2010 Not Available [facility] 3 03:02:55 Disorder of tendon of shoulder region 38890775 Completed 200108/05/2011 Not Available [facility] 3 03:02:55 Cough 34917760 Completed 200508/26/2010 Not Available [facility] 3 03:02:55 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 Completed 200408/05/2011 Not Available [facility] 3 03:02:55 Cellulit is and abscess of face 756420672 Completed 199908/26/2010 Not Available [facility] 3 03:02:55 Shoulder pain 50274220 Completed 200103/30/2013 Not Available [facility] 3 02:00:59 Hip pain 57936770 Completed 200008/05/2011 Not Available [facility] 3 03:02:55 Plantar fasciiti s 750780945 Completed 200408/05/2011 Not Available [facility] 3 03:02:55 Pure hypercho lesterol emia 368202007 Completed 200308/26/2010 Not Available [facility] 3 03:02:55 Acute sinusiti s 78869074 Completed 200708/26/2010 Not Available [facility] 3 03:02:55 Common cold 90793807 Completed 200008/26/2010 Not Available [facility] 3 03:02:55 Disorder of urethra 9050654 Completed 08/05/2011 Not Available [facility] 3 03:02:55 Benign neoplasm of large intestin e 13898562 Completed 200309/14/2014 Anuj Strickland III, MD [address] [place] [address], [phone] , [facility] 5 06:55:10 Benign neoplasm of scrotum 77073648 Completed 200308/05/2011 Not Available [facility] 3 03:02:55 Inflamed seborrhe ic keratosi s 406809354 Completed 200308/26/2010 Not Available [facility] 3 03:02:55 Sprain of foot 68481224 Completed 200008/26/2010 Not Available [facility] 3 03:02:55 Traumati c arthropa thy 58947817 Completed 08/05/2011 Not Available [facility] 3 03:02:55 Low back pain 167766050 Completed 200508/05/2011 Not Available [facility] 3 03:02:55 Sprain of wrist 48405531 Completed 200008/05/2011 Not Available [facility] 3 03:02:55 Pain in limb 97959555 Completed 200708/05/2011 Not Available [facility] 3 03:02:55 Streptoc occal sore throat 32221188 Completed 200508/26/2010 Not Available [facility] 3 03:02:55 Divertic ulosis of colon without divertic ulitis 004323130 Completed 200309/14/2014 Anuj Strickland III, MD [address] [place] [address], [phone] , [facility] 5 06:55:10 Neck sprain 212708125 Completed 200108/05/2011 Not Available [facility] 3 03:02:55 Benign prostati c hyperpla davis 514699053 Completed 200709/14/2014 Anuj Strickland III, MD [address] [place] [address], [phone] , [facility] 5 06:55:10 Problem Notes None recorded. Procedures Surgical History Date Name Laterality Status Provider Name and Address Organization Details Recorded Time 12/03/19 24 primary laminectomy excision of lumbar intervertebral disc completed Katia [place], [address], [facility] 12/03/2023 12:52:46 01/27/20 23 total replacement of left knee joint completed Katia Shoushtari. [place], [address], [facility] 01/26/2023 12:24:48 01/26/20 21 Medicare Wellness Visit completed LASHELL Marsh [facility] 01/25/2021 08:10:00 01/26/20 21 Alcohol use screening completed LASHELL Marsh [facility] 01/25/2021 08:10:00 01/26/20 21 Advanced Care Planning completed Katia [place], [address], [facility] 01/25/2021 14:24:18 05/24/19 21 Medicare Wellness Visit cancelled Magalys Ramirez MA [facility] 05/24/2020 14:41:37 05/24/19 21 prevention-cardiov ascular risk reduction counseling cancelled Magalys Ramirez MA [facility] 05/24/2020 14:41:37 05/24/19 21 prevention-annual alcohol misuse screening cancelled Magalys Ramirez MA [facility] 05/24/2020 14:41:37 05/18/19 20 Medicare Wellness Visit completed Anastasiia Bhakta LPN [facility] 05/18/2019 10:59:41 04/07/20 18 Medicare Wellness Visit completed Anastasiia Bhakta LPN [facility] 04/07/2018 10:59:20 04/16/20 17 Transitional care completed Cherry Tim [address] [place], [address], [facility] 04/16/2017 21:12:58 04/16/20 17 POC Coag Testing completed Anastasiia Bhakta LPN [facility] 04/16/2017 12:21:31 04/10/20 17 CABG completed Cherry Tim [address] [place], [address], [facility] 04/16/2017 21:08:32 11/27/19 17 Medicare Wellness Visit completed Anastasiia Bhakta LPN [facility] 11/26/2016 09:19:25 09/14/19 15 Medicare Wellness Visit completed Nataly Beard [facility] 09/13/2014 13:51:42 08/10/19 11 Medicare Annual Wellness Visit completed Enedina Petersen MA [facility] 08/09/2010 10:21:12 08/10/19 11 Medicare Risk for Falls Screen completed Enedina Petersen MA [facility] 08/09/2010 10:09:42 02/15/20 04 Lesion removal colonoscopy completed Not Available [facility] 03/27/2011 06:05:52 Imaging Results Imaging Date Name Status LastModified by [facility] Details LastModified Time 05/27/2022 XR, cervical spine completed [facility] (Imaging) [address] [place], [address], 05/29/2022 15:56:02 05/27/2022 XR, lumbar spine completed [facility] (Imaging) [address] [place], [address], 05/29/2022 15:56:54 05/28/2022 arterial study, lower extremity, complete completed [facility], [address], 05/29/2022 13:36:35 07/03/2022 US, echocardiogra m, transthoracic , complete completed [facility] [address], [address], 07/07/2022 11:45:39 08/05/2022 XR, ankle completed [facility] (Imaging) [address], [place], [address], 08/06/2022 10:53:55 08/05/2022 XR, foot completed [facility] (Imaging) [address] [place], [address], 08/06/2022 10:50:48 12/08/2022 MRI, ankle, w/o contrast completed [facility] (Medical Records) [address] [place], [address], 12/23/2022 15:50:03 12/08/2022 MRI, ankle, w/o contrast completed [facility] (Medical Records) [address] [place], [address], 12/29/2022 06:21:22 01/14/2023 MRI, knee completed [facility] (Medical Records) [address] [place], [address], 01/15/2023 17:16:50 04/06/2023 XR, ankle completed [facility] (Imaging) [address] [place], [address], 04/07/2023 10:55:55 12/03/2023 RF, guidance completed [facility] [address] [place], [address], 02/03/2024 15:29:14 Procedure Notes None recorded. Medical Equipment None Reported. Allergies No known drug allergies Medications Name Sig Start Date Stop Date Status Note LastModified by Organization Details LastModified Time losartan 50 mg tablet Take 1 tablet every day by oral route. active Not Available Not Available No t Available amoxicill in 500 mg capsule 12/14 completed Not Available Not Available Not Available furosemid e 40 mg tablet 12/14 completed Not Available Not Available Not Available atorvasta tin 40 mg tablet TAKE ONE TABLET BY MOUTH EVERY DAY NEED APPOINTM ENT 2024 active Not Available Not Available Not Avai lable ivermecti n 3 mg tablet Take 6 tablets by oral route as directed . 10/10 completed Not Available Not Available Not Available atorvasta tin 80 mg tablet TAKE 1 TABLET BY MOUTH EVERY DAY 01/25 completed Not Available Not Available Not Available Medrol (Mirza) 4 mg tablets in a dose pack TAke as directed 05/18 completed Not Available Not Available Not Available atenolol 25 mg tablet TAKE 1 TABLET BY MOUTH ONCE DAILY 11/14 completed not taking 11/15/23 NR Not Available Not Available Not Available Zithromax Z-Mirza 250 mg tablet Take 2 tablets (500 mg) by oral route once daily for 1 day then 1 tablet (250 mg) by oral route once daily for 4 days 2008 active Not Available Not Available Not Avai lable warfarin 2.5 mg tablet 12/14 completed Not Available Not Available Not Available simvastat in 80 mg tablet TAKE 1 TABLET BY MOUTH EVERY NIGHT AT BEDTIME 2009 active Not Available Not Available Not Avai lable aspirin 81 mg tablet,de layed release 04/07 completed Not Available Not Available Not Available tramadol 50 mg tablet Take 1 tablet every 6 hours by oral route as needed for 5 days. 05/28 completed PRN Not Available Not Available Not Available amoxicill in 500 mg tablet 2000mg prior to dental procedur es active Not Available Not Available No t Available simvastat in 40 mg tablet TAKE ONE TABLET(S ) EVERY DAY AT BEDTIME 02/25 completed Not Available Not Available Not Available meloxicam 7.5 mg tablet Take 1 tablet every day by oral route with meals for 21 days. 12/02 completed Not Available Not Available Not Available famotidin e 20 mg tablet Take 1 tablet twice a day by oral route. active Not Available Not Available No t Available Flagyl 500 mg tablet Take 1 tablet twice a day by oral route. 01/03 completed Not Available Not Available Not Available ranitidin e 150 mg tablet Take 1 tablet every day by oral route. 05/18 completed PRN Not Available Not Available Not Available lisinopri l 10 mg tablet Take 1 tablet every day by oral route for 90 days. 04/07 completed 04/07/18 has not been taking Not Available Not Available Not Available warfarin 5 mg tablet Take 1 tablet every day by oral route. 05/28 completed Started as inpatien t-BBLPN Not Available Not Available Not Available hydrochlo rothiazid e 12.5 mg capsule TAKE ONE CAPSULE( S) EVERY DAY BY MOUTH active patient last physical was in 2011 Not Available Not Available Not Available nitroglyc yousif 0.4 mg sublingua l tablet 12/14 completed Not Available Not Available Not Available aspirin 81 mg chewable tablet Chew 1 tablet every day by oral route. 01/15 completed stop 01/15/23tt Not Available Not Available Not Available warfarin 1 mg tablet Take 1-3 tablets daily as directed . 05/28 completed Not Available Not Available Not Available atenolol 50 mg tablet 12/14 completed Not Available Not Available Not Available minocycli ne 100 mg tablet 12/14 completed Not Available Not Available Not Available Klor-Con M20 mEq tablet,ex tended release 12/14 completed Not Available Not Available Not Available metoprolo l tartrate 25 mg tablet TAKE 1/2 TABLET BY MOUTH TWICE A DAY WITH FOOD 04/16 completed pt is not taking this med 04-16-17 KB Not Available Not Available Not Available ibuprofen 10/06 completed 1-5 tabs prn Not Available Not Available Not Available lisinopri l 02/25 completed Not Available Not Available Not Available cimetidin e OTC PRN RARELY 01/25 completed Not Available Not Available Not Available Baby Aspirin 1 daily active Not Available Not Available Not Available omeprazol e 20 mg tablet,de layed release Take 1 tablet by oral route. 01/03 completed Not Available Not Available Not Available Brilinta 90 mg tablet Take 1 tablet twice a day by oral route for 30 days. 04/16 completed pt is not taking this med 04-16-17 KB Not Available Not Available Not Available Brilinta 02/25 completed Not Available Not Available Not Available baclofen 5 mg tablet Take 1 tablet every day by oral route at bedtime for 21 days. 12/02 completed Not Available Not Available Not Available Vitals Date Recorded Body height Body mass index (BMI) Body weight Oxygen saturation Oxygen saturation in Arterial blood by Pulse oximetry Heart rate Systolic blood pressure Diastolic blood pressure Provider Name and Address Organization Details Last Updated DateTime 3 180.34 cm 27.9 kg/m2 38960.4 7 g 100 % 100 % 91 /min 130 mm[Hg] 80 mm[Hg] LASHELL Marsh [facility] 3 14:36:34 Date Recorded Body height Body mass index (BMI) Body weight Heart rate Systolic blood pressure Diastolic blood pressure Provider Name and Address Organization Details Last Updated DateTime 3 180.34 cm 28.3 kg/m2 82611.2 5 g 62 /min 150 mm[Hg] 90 mm[Hg] LASHELL Marsh [facility] 3 09:03:44 Date Recorded Systolic blood pressure Diastolic blood pressure Provider Name and Address Organization Details Last Updated DateTime 07/01/2022 150 mm[Hg] 80 mm[Hg] Katia German MD [address] [place] [address], [phone], [facility] 07/01/2022 09:24:20 Date Recorded Body height Body mass index (BMI) Body weight Heart rate Oxygen saturation Oxygen saturation in Arterial blood by Pulse oximetry Systolic blood pressure Diastolic blood pressure Provider Name and Address Organization Details Last Updated DateTime 3 180.34 cm 28.7 kg/m2 94429.0 3 g 81 /min 95 % 95 % 130 mm[Hg] 90 mm[Hg] LASHELL Marsh [facility] 3 14:32:20 Date Recorded Body height Body mass index (BMI) Body weight Heart rate Oxygen saturation Oxygen saturation in Arterial blood by Pulse oximetry Systolic blood pressure Diastolic blood pressure Provider Name and Address Organization Details Last Updated DateTime 3 180.34 cm 29 kg/m2 00295.2 1 g 78 /min 96 % 96 % 110 mm[Hg] 62 mm[Hg] LASHELL Marsh [facility] 3 13:57:19 Date Recorded Body height Body mass index (BMI) Body weight Heart rate Oxygen saturation Oxygen saturation in Arterial blood by Pulse oximetry Systolic blood pressure Diastolic blood pressure Provider Name and Address Organization Details Last Updated DateTime 3 180.34 cm 27.9 kg/m2 08240.4 7 g 66 /min 97 % 97 % 120 mm[Hg] 71 mm[Hg] [facility] 3 10:36:40 Social History Question Answer Notes LastModified by Organizat ion Details LastModified Time Tobacco Smoking Status Former Smoker smoked stop smoking 1992. 0.5 ppd x 25 years. Katia Edward. [address] [place] [address], [phone], [facility] 01/25/2021 14:12:08 Do You Have An Advance Directive? No Information not available 01/25/2021 What Is Your Level Of Alcohol Consumption? Occasional [place], 2 Nights A Week, 1-3 Drinks. Information not available 01/25/2021 Do You Wear A Helmet When Biking? Yes Information not available 09/13/2014 What Is Your Level Of Caffeine Consumption? Moderate 2-3 Daily Information not available 09/13/2014 How Much Tobacco Do You Chew? None [email or web address] Information not available 10/06/2012 Are You Currently Employed? 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 Information not available 01/25/2021 What Type Of Diet Are You Following? REGULAR [email or web address] Information not available 01/25/2021 Do You Or Have You Ever Used E-cigarettes Or Vape? Never Used Electronic Cigarettes [email or web address] Information not available 01/25/2021 What Is The Highest Grade Or Level Of School You Have Completed Or The Highest Degree You Have Received? UL32457-2 [email or web address] Information not available 01/25/2021 Have There Been Any Changes To Your Family Or Social Situation? No Information not available 01/25/2021 When Did You Quit Smoking? 16+yearssince [email or web address] Information not available 03/03/2018 How Many Days In The Past Year Have You Had A Heavy Drinking Consumption (4+ Female, 5+ Male)? 10 Information not available 01/14/2018 Are There Any Guns Present In Your Home? Yes Information not available 09/13/2014 Do You Use Insect Repellent Routinely? No [email or web address] Information not available 01/25/2021 Live Alone Or With Others? Alone Information not available 10/06/2012 Patient Has Health Care Proxy Signed And In Chart No Form Given Today. [email or web address] [id number] Information not available 03/27/2011 Marital Status Informatio n not available 10/06/2012 Mosquito Repellent Used Routinely Yes Information not available 09/13/2014 What Was The Date Of Your Most Recent Tobacco Screening? 12/02/2022 [email or web address] Information not available 12/02/2022 How Many Children Do You Have? 2 Son And Daughter Information not available 01/25/2021 What Is Your Current Pack Years? 10-19packyear s Information not available 03/03/2018 What Is Your Relationship Status? Information not available 01/25/2021 Do You Use Your Seat Belt Or Car Seat Routinely? Yes [email or web address] Information not available 01/25/2021 Seat Belts Used Routinely Yes Information not available 09/13/2014 Are You Sexually Active? Yes Has Female Partner, Uses Condoms. Information not available 05/26/2022 Smoke Alarm In Home Yes Information not available 09/13/2014 Do You Have Smoke And Carbon Monoxide Detectors In Your Home? Yes [email or web address] Information not available 01/25/2021 Are You Passively Exposed To Smoke? No [email or web address] Information not available 01/25/2021 Do You Or Have You Ever Used Smokeless Tobacco? Never Used Smokeless Tobacco [email or web address] Information not available 01/25/2021 How Much Tobacco Do You Smoke? 0 Information not available 05/24/2020 General Stress Level Medium Information not available 12/28/2013 Do You Use Any Illicit Or Recreational Drugs? No Information not available 01/25/2021 Do You Use Sunscreen Routinely? Yes Information not available 09/13/2014 How Many Years Have You Smoked Tobacco? 0 Information not available 05/24/2020 Sex: Unknown Functional Status Question Answer Note LastModified by Organizat ion Details LastModified Time What is your exercise level? Occasional resistance, stretches daily. walks or treadmil 2 x week Information not available 01/25/2021 Mental Status None recorded. Family History Relationship Description Onset Age of this Age Resolved Age Notes LastModified by Organization Details LastModified Time Mother Cerebrovascu lar accident 101 104 [email or web address] Not available 0 01/25/2021 14:16:08 Mother Malignant tumor of colon 90 [email or web address] Not available 01/09 14:17:03 Father Coronary arterioscler osis 60 85 [email or web address] Not available 01/09 14:16:42 Notes:tobacco use : He denie s tobacco use. Medical History No medical history recorded. Immunizations Vaccine Type Date Status Note Provider Nam e and Address Organization Details Recorded Time Pneumococcal conjugate PCV 13 8 completed Not Available [facility] 05/28/2019 02:38:08 Td (adult), 2 Lf tetanus toxoid, preservative free, adsorbed 1 completed Nya Avendaño MD [address] [place] [address], [phone], [facility] 12/21/2020 15:24:27 COVID-19 vaccine, vector-nr, rS-Ad26, PF, 0.5 mL 1 completed Not Available [facility] 04/06/2023 17:32:04 pneumococcal polysaccharide PPV23 1 completed Not Available [facility] 05/28/2019 02:34:56 Td (adult), 5 Lf tetanus toxoid, preservative free, adsorbed 1 completed Not Available [facility] 05/28/2019 02:26:11 zoster live 1 completed Not Available [facility] 05/28/2019 02:36:33 Past Encounters Encounter ID Performer Location Encounter Start Date Encounter Closed Date Diagnosis/Indication Diagnosis SNOMED-CT Code Diagnosis ICD10 Code Diagnosis Note [id number] [facility] [place] [address] [place] [address] 03/11/2000 15:15:00 05/31/2008 02:02:[id number] [facility] [place] [address] [place] [address] 08/07/2000 10:00:00 05/31/2008 02:02:[id number] [facility] [place] [address] [place] [address] 08/25/2000 12:30:00 05/31/2008 02:02:[id number] [facility] [place] [address] [place] [address] 04/02/2001 09:30:00 05/31/2008 02:02:[id number] [facility] [place] [address] [place] [address] 03/30/2001 10:15:00 05/31/2008 02:02:[id number] [facility] [place] [address] [place] [address] 05/24/2001 14:00:00 05/31/2008 02:02:[id number] [facility] [place] [address] [place] [address] 07/13/2001 15:30:00 05/31/2008 02:02:29 [id number] [facility] [place] [address] [place] [address] 07/20/2001 08:00:00 05/31/2008 02:02:[id number] [facility] [place] [address] [place] [address] 08/03/2001 17:00:00 05/31/2008 02:02:29 [id number] [facility] , [facility] [address] [place] [id number] 08/04/2001 14:30:00 05/31/2008 02:02:[id number] [facility] [place] [address] [place] [id number] 08/24/2001 11:00:00 05/31/2008 02:02:29 [id number] [place], [facility] [address] [place] [id number] 09/03/2001 09:00:00 05/31/2008 02:02:[id number] [facility] [place] [address] [place] [id number] 11/29/2001 14:11:17 05/31/2008 02:02:29 [id number] [place] [facility] [address] [place] [id number] 08/22/2002 08:39:43 05/31/2008 02:02:29 [id number] [facility], OFFICE [address] [place] [address] 11/27/2002 10:04:40 05/31/2008 02:02:[id number] [facility] [place] [address] [place] [id number] 05/22/2003 16:04:54 05/24/2003 08:02:21 [id number] Radiology , [facility] [address] [place] [id number] 06/02/2003 08:06:57 06/02/2003 11:33:17 [id number] [place] [facility] [address] [place] [id number] 06/02/2003 07:31:55 06/02/2003 14:36:31 [id number] [facility] [facility] [place] [address] CABRERABlairELODIA [id number] 1 06/26/2003 10:09:14 06/26/2003 16:25:16 [id number] - [facility] [address] [place] [id number] 1 06/26/2003 00:00:00 05/31/2008 02:02:[id number] [facility] [address]ICK[address] [place] [id number] 1 08/10/2003 12:42:29 08/10/2003 17:42:[id number] [facility] [address] BERRIOSASIABlair [place] [id number] 1 09/07/2003 08:16:41 09/08/2003 09:08:25 [id number] Radiology , [facility] [address] [place] [id number] 1 09/11/2003 12:04:13 09/11/2003 14:23:[id number] [facility] [place] [address] [place] [id number] 1 09/11/2003 11:10:18 09/14/2003 08:15:11 [id number] - [facility] [address] [place] [id number] 1 12/20/2003 08:03:48 12/20/2003 08:04:[id number] [facility] [place] [address] [place] [id number] 1 12/28/2003 07:47:34 12/28/2003 07:51:[id number] [facility] [address] [place] [id number] 1 01/04/2004 10:37:58 01/05/2004 09:04:[id number] [facility] [address] RICKBlair[place] [id number] 1 01/18/2004 16:36:05 01/18/2004 17:27:33 [id number] ASP, [facility] [address] [place] [id number] 1 02/15/2004 09:14:31 02/15/2004 17:38:[id number] [facility] [place] [address] [place] [id number] 1 06/05/2004 09:20:08 06/06/2004 08:54:17 [id number] Physical Therapy, [facility] [address] [place] [id number] 1 06/07/2004 08:45:59 06/07/2004 09:47:19 [id number] [address] [facility] [address] [place] [id number] 1 06/05/2004 07:24:00 06/05/2004 07:24:27 [id number] Physical Therapy, [facility] [address] [place] [id number] 1 06/11/2004 09:19:32 06/11/2004 10:41:09 [id number] Physical Therapy, [facility] [address] [place] [id number] 1 06/13/2004 09:12:45 06/13/2004 10:22:[id number] [facility] [address] RICKBlair[place] [id number] 1 11/28/2004 14:21:00 11/28/2004 16:01:39 [id number] [facility] , [facility] [address] [place] [id number] 1 12/13/2004 15:00:55 12/16/2004 08:36:[id number] [facility] [place] [address] [place] [id number] 1 12/13/2004 14:28:53 12/13/2004 17:23:46 [id number] [facility] [address] [place] [id number] 1 12/16/2004 07:32:05 12/16/2004 07:33:[id number] [facility] [place] [address] [place] [id number] 1 03/17/2005 15:28:06 03/18/2005 08:33:[id number] [facility] [address] [place] [id number] 1 06/16/2005 08:52:02 06/16/2005 15:33:14 [id number] [facility] [address] [place] [id number] 1 07/23/2005 07:17:29 07/23/2005 07:17:[id number] [facility] [place] [address] [place] [id number] 1 07/29/2005 12:45:39 07/29/2005 16:03:24 [id number] [facility] [address] [place] [id number] 1 07/29/2005 00:00:00 05/31/2008 02:02:[id number] [facility] [place] [address] [place] [id number] 1 12/02/2005 16:57:09 12/04/2005 08:11:[id number] [facility] [place] [address] [place] [id number] 1 01/21/2006 07:53:17 01/21/2006 11:09:09 [id number] [facility] - [facility] [address] [place] [id number] 1 02/10/2006 07:27:45 02/10/2006 07:27:[id number] [facility] [address] [place] [id number] 1 05/06/2006 11:46:06 05/06/2006 15:27:17 [id number] [facility] , [facility] [address] [place] [id number] 1 09/17/2006 13:33:20 09/17/2006 14:03:[id number] [facility] [address] [place] [id number] 1 09/17/2006 13:03:39 09/17/2006 14:44:[id number] [facility] [address] [place] [id number] 1 09/30/2006 09:26:44 09/30/2006 11:35:28 [id number] [facility] [address] [place] [id number] 1 10/01/2006 08:43:26 10/01/2006 08:43:[id number] [facility] [address] [place] [id number] 1 11/26/2006 13:28:03 11/26/2006 16:20:[id number] [facility] [place] [address] [place] [id number] 1 03/23/2007 10:12:26 05/31/2008 02:02:29 [id number] [facility] [address] [place] [id number] 1 03/31/2007 09:18:22 03/31/2007 09:18:[id number] [facility] [address] [place] [id number] 1 07/29/2007 14:25:07 05/31/2008 02:02:29 [id number] [facility] [address] [place] [id number] 1 09/22/2007 07:50:15 09/22/2007 07:50:[id number] [facility] [place] [address] [place] [id number] 1 03/08/2008 11:06:17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
--- OUTSIDE RECORDS SUMMARY | 2024-07-08 15:21 | XMS_ITS | Clinical Summary ---
Author Organization [facility] Address [address] [place] [address] Care Team Providers Care Guest Specialist Name Role Phone Sri Curtis MD Unavailable Alan Angela MD Unavailable [phone] Pcp, No Primary Care Provider Unavailabl e Allergies Active Allergy Reactions Criticality Noted Date Comments Other Other (See Comments) 03/27/2017 Sodium Pentathol- was very slow to wake up after receiving Medications Medication Sig Dispensed Refills Start Date End Date Status aspirin enteric coated (ECOTRIN LOW STRENGTH) 81 MG EC tablet Take 81 mg by mouth daily. Active atorvastatin (LIPITOR) 40 MG tabletIndications:Is chemic Heart Disease,Mixed Dyslipidemia,Acute Myocardial Infarction Take 40 mg by mouth nightly. Active temazepam (RESTORIL) 15 MG capsuleIndications:I nsomnia Take 15 mg by mouth nightly as needed for sleep. Active traMADol (ULTRAM) 50 MG tabletIndications:CA D, multiple vessel Take 0.5 tablets (25 mg total) by mouth 4 times daily (every 6 hours) as needed for moderate pain. 30 tablet 04/15/2017 Active atenolol (TENORMIN) 50 MG tabletIndications:CA D, multiple vessel Take 0.5 tablets (25 mg total) by mouth daily. 15 tablet 1 04/16/2017 Active furosemide (LASIX) 40 MG tabletIndications:Re current left pleural effusion,Pleural effusion on left,S/P CABG x 3,RICHMOND (dyspnea on exertion) Take 1 tablet (40 mg total) by mouth daily. 3 tablet 04/17/2017 Active minocycline (DYNACIN) 100 MG tabletIndications:Ce llulitis of other specified site Take 1 tablet (100 mg total) by mouth 2 (two) times a day. 14 tablet 1 04/20/2017 Active Active Problems Problem Noted Date Diagnosed Date CAD, multiple vessel 01/09/2017 Overview (03/23/2017): Re-cath on 03/16/17 showed ostial LAD 80-85% stenosis, DRCA 90-95% stenosis, and OM 70-75% stenosis Family History Medical History Relation Name Comments Coronary artery disease Brother Coronary artery disease Father Relation Name Status Comments Brother Father Social History Tobacco Use Types Packs/Day Years Used Date Smoking Tobacco: Former Cigarettes 0.5 30 Smokeless Tobacco: Former Comments:quit approx age 54 Alcohol Use Standard Drinks/Week Comments Yes 8 (1 standard drink = 0.6 oz pur e alcohol) Sex and Gender Information Value Date Recorded Sex Assigned at Not on file Gender Identity Not on file Sexual Orientation Not on file Last Filed Vital Signs Vital Sign Reading Time Taken Comments Blood Pressure 119/60 05/15/2017 9:00 AM EST Pulse 88 05/15/2017 9:00 AM EST Temperature 36.8 ??C (98.3 ??F) 05/15/2017 9:00 AM ES T Respiratory Rate 16 05/15/2017 9:00 AM EST Oxygen Saturation 97% 05/15/2017 9:00 AM EST Inhaled Oxygen Concentration - - Weight 83.6 kg (184 lb 4.8 oz) 05/15/2017 9:00 A M EST Height 182.9 cm (6') 05/15/2017 9:00 AM EST Body Mass Index 25 05/15/2017 9:00 AM EST Plan of Treatment Health Maintenance Due Date Last Done Comments Hepatitis C Virus Screening 1945 DTaP/Tdap/Td Vaccines (1 - Tdap) 07/25/1963 Pneumococcal Vaccines 50+ (1 of 2 - PCV) 07/25/1963 Zoster (Shingles) Vaccine (1 of 2) 1994 RSV Vaccine 60 years and old er and Patients (1 - 1-dose 75+ series) 07/25/2019 Influenza Vaccine 12/10/2023 COVID-19 Vaccine ( - 2023-2 5 season) 2024 Hepatitis B Vaccines Aged Out No long er eligible based on patient's age to complete this topic Advance Directives * Full Code (Latest Code Status on File) Date Activated Date Inactivated Comments 04/08/2017 5:20 PM Care Teams Guest Specialist Relationship Specialty Start Date End Date Pcp, No PCP - General General Medicine 04/20/17 Sri Curtis MD Head Librarian Cardiovascular Disease 03/23/17 Alan Angela MD [address] [address] Surgeon Surgery, Cardiac 03/23/17
--- OUTSIDE RECORDS SUMMARY | 2024-07-08 15:22 | XMS_ITS | Encounter Summary ---
Author Organization [facility] Address [address] [place] [address] Care Team Providers Care Family Practice Medical Doctor Name Role Phone Sri Curtis MD Unavailable Alan Angela MD Unavailable [phone] Pcp, No Primary Care Provider Unavailabl e Encounter Details Date Type Department Care Team (Late st Contact Info) Description 04/16/2017 Abstract [facility] [place] [address] Bess May, ALLAN [address] [place] [address] Social History Tobacco Use Types Packs/Day Years Used Date Smoking Tobacco: Former Cigarettes 0.5 30 Smokeless Tobacco: Never Comments:quit approx age 54 Alcohol Use Standard [...] Diagnoses Not on filedocumented in this encounter Care Teams Family Practice Medical Doctor Relationship Specialty Start Date End Date Pcp, No PCP - General General Medicine 04/20/17 Sri Curtis MD Medical Administrative Cardiovascular Disease 03/23/17 Alan Angela MD [address] [address] Surgeon Surgery, Cardiac 03/23/17 documented as of this encounter
== END 2024-07-08 14:14 | disposition home or self-care (01) ==
LOC: HO.HNS 13:16
PROVIDERS: Visit Provider Physician Assistant
DX: M48.062 Spinal stenosis, lumbar region with neurogenic claudication (principal)
CPT/HCPCS: 99213

== ENCOUNTER → 2024-07-08 13:59 | Outpatient (BNV) | payer OTHER, MEDICARE, SELFPAY | PROVIDERS: Visit Provider Radiology Diagnostic Radiology | DX: M48.062 Spinal stenosis, lumbar region with neurogenic claudication (principal) | CPT/HCPCS: 72110 ==

== ENCOUNTER 2024-08-31 10:33 | Outpatient (AMB) | payer OTHER, MEDICARE, SELFPAY ==
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
--- OUTSIDE RECORDS SUMMARY | 2024-08-31 12:27 | XMS_ITS | Encounter Summary ---
Author Organization [facility] Address [address] [place] [address] Care Team Providers Care Patient Financial Specialist Name Role Phone Pcp, No Primary Care Provider Unavailabl e Sri Curtis MD Unavailable Alan Angela MD Unavailable [phone] Ander Buck MD PhD Primary Care Provider [phone] Pcp, No Primary Care Provider Unavailabl e Encounter Details Date Type Department Care Team (Late st Contact Info) Description 03/23/2017 Abstract [facility] [place] [address] Bess May, RN [address] [place] [address] CAD, multiple vessel Social History Tobacco Use Types Packs/Day Years Used Date Smoking Tobacco: Former Cigarettes 0.5 30 Smokeless Tobacco: Former Alcohol Use Standard Drinks/Week Comments Yes 3 (1 standard drink = 0.6 oz pur e alcohol) Sex and Gender Information Value Date Recorded Sex Assigned at Not on file Legal Sex Male 2:51 PM EST Gender Identity Not on file Sexual Orientation Not on file documented as of this encounter Plan of Treatment Not on file documented as of this encounter Visit Diagnoses Diagnosis CAD, multiple vessel documented in this encounter Care Teams Patient Financial Specialist Relationship Specialty Start Date End Date Pcp, No PCP - General General Medicine 03/20/17 03/26/17 Ander Buck MD PhD [address] [place] [address] PCP - General Family Medicine 03/27/17 03/28/17 Pcp, No PCP - General General Medicine 04/20/17 Sri Curtis MD Dietary Server Cardiovascular Disease 03/23/17 Alan Angela MD [address] [place] [address] Surgeon Surgery, Cardiac 03/23/17 documented as of this encounter
--- OUTSIDE RECORDS SUMMARY | 2024-08-31 12:27 | XMS_ITS | Clinical Summary ---
Author Organization [employer] Address [address] [facility] 7t [place] [address] Care Team Providers Care Fisher Crab Name Role Phone Unavailable Primary Care Provider [...]
--- OUTSIDE RECORDS SUMMARY | 2024-08-31 12:27 | XMS_ITS | Encounter Summary ---
Author Organization [facility] Address [address] [place] [address] Care Team Providers Care [employer] Worker Name Role Phone Unavailable Primary Care Provider Unavailabl e Encounter Details Date Type Department Care Team (Latest Contact Info) Description 06/23/2018 Abstract [facility] CONVERSIONS Dental, Provider, DDS Social History [...]
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
--- OUTSIDE RECORDS SUMMARY | 2024-08-31 12:28 | XMS_ITS | Encounter Summary ---
Author Organization [facility] Address [address] [place] [address] Care Team Providers Care Outdoor Emergency Care Technician Name Role Phone Pcp, No Primary Care Provider Unavailabl e Sri Curtis MD Unavailable Alan Angela MD Unavailable [phone] Ander Buck MD PhD Primary Care Provider [phone] Pcp, No Primary Care Provider Unavailabl e Encounter Details Date Type Department Care Team (Latest Contact Info) Description 03/26/2017 Prep for Surgery [facility] [place] [address] Bess May, RN [address] [place] [address] CAD, multiple vessel (Primary Dx); Preop testing; [...] Protime-INR (03/27/2017 1:00 PM EST) INR 1.0 [facility] Comment: Reference Range ? 0.9-1.1 Moderate-intensity Warfarin Therapy 2.0-3.0 Higher-intensity Warfarin Therapy ?? 3.0-4.0 Prothrombin Time (PT) 10.7 9.0 - 11.5 sec [facility] Comment: For more information on this test, go to: http://education.Leonar3Do/faq/ILX276 Blood specimen (specimen) Blood specimen / Unknown 03/27/2017 1:00 PM EST 03/27/2017 1:00 PM EST Narrative [facility] - 03/28/2017 4:48 AM EST FASTING:NO Resulting Agency Comment Performing Organization Information: ?Site ID: [id number] ?Name: [facility] ?Address: [address] [place] [address], [place] [address] ?Director: Camelia Bassett MD us Alan Angela MD LAB BLOOD ORDERABLES Final Res ult [facility] [facility] [address] [place] [address], [place] [address] * Complete Blood Count, with [...] Performing Organization Information: ?Site ID: [id number] ?Name: [facility] ?Address: [address] [place] [address], [place] [address] ?Director: Camelia Bassett MD us Alan Angela MD LAB BLOOD ORDERABLES Final Res ult [facility] [address] [place] [address], [place] [address] * (ABNORMAL) Basic Metabolic Panel (03/27/2017 1:00 [...] approximately 13% higher for people identified as -Bahamian. eGFR Non- 80 > OR = 60 mL/min/1 .73m2 [facility] eGFR 92 > OR = 60 mL/min/1 .73m2 [facility] BUN/Creatinine Ratio NOT APPLICABLE 6 - 22 (calc) [facility] Sodium 141 135 - 146 mmol/L [facility] Potassium 4.8 3.5 - 5.3 mmol/L [facility] Chloride 104 98 - 110 mmol/L [facility] CO2 27 20 - 31 mmol/L [facility] Calcium 9.3 8.6 - 10.3 mg/dL [facility] Blood specimen (specimen) Blood specimen / Unknown 03/27/2017 1:00 PM EST 03/27/2017 1:00 PM EST Narrative [facility] - 03/28/2017 4:48 AM EST FASTING:NO Resulting Agency Comment Performing Organization Information: ?Site ID: [id number] ?Name: [facility] ?Address: [address] [place] [address], [place] [address] ?Director: Camelia Bassett MD us Alan Angela MD LAB BLOOD ORDERABLES Final Res ult [employer] [facility] [address], [place] [address] documented in this encounter Visit Diagnoses Diagnosis CAD, multiple vessel- Primary Preop testing Unspecified pre-operative examination Angina effort Other and unspecified angina pectoris documented in this encounter Care Teams Outdoor Emergency Care Technician Relationship Specialty Start Date End Date Pcp, No PCP - General General Medicine 03/20/17 03/26/17 Ander Buck MD PhD [address] [place] [address] PCP - General Family Medicine 03/27/17 03/28/17 Pcp, No PCP - General General Medicine 04/20/17 Sri Curtis MD Floorworker Lasting Cardiovascular Disease 03/23/17 Alan Angela MD [address] [address] Surgeon Surgery, Cardiac 03/23/17 documented as of this encounter
--- OUTSIDE RECORDS SUMMARY | 2024-08-31 12:28 | XMS_ITS | Encounter Summary ---
Author Organization [facility] Address [address] [place] [address] Care Team Providers Care Stove Mounter Name Role Phone Sri Curtis MD Unavailable Alan Angela MD Unavailable [phone] Pcp, No Primary Care Provider Unavailabl e Encounter Details Date Type Department Care Team (Late st Contact Info) Description 04/16/2017 Abstract [facility] [place] [address] Bess May, ALLAN [address] [place] [address] Social History Tobacco Use Types Packs/Day Years [...] on filedocumented in this encounter Care Teams Stove Mounter Relationship Specialty Start Date End Date Pcp, No PCP - General General Medicine 04/20/17 Sri Curtis MD Retail Bakery Manager Cardiovascular Disease 03/23/17 Alan Angela MD [address] [place] [address] Surgeon Surgery, Cardiac 03/23/17 documented as of this encounter
--- OUTSIDE RECORDS SUMMARY | 2024-08-31 12:28 | XMS_ITS | Clinical Summary ---
Author Organization [facility] Address [address] [place] [address] Care Team Providers Care Electrotype Servicer Name Role Phone Sri Curtis MD Unavailable Alan Angela MD Unavailable Pcp, No Primary Care Provider Unavailabl e Allergies Active Allergy Reactions Criticality Noted Date Comments Other Other (See Comments) 03/27/2017 Sodium Pentathol- was very slow to wake up after receiving Medications aspirin enteric coated (ECOTRIN LOW STRENGTH) 81 MG EC tablet Take 81 mg by mouth daily. Active atorvastatin (LIPITOR) 40 MG tabletIndicatio ns:Ischemic Heart Disease,Mixed Dyslipidemia,Ac match-e-be-nash-she-wish band Myocardial Infarction Take 40 mg by mouth nightly. Active temazepam (RESTORIL) 15 MG capsuleIndicati ons:Insomnia Take 15 mg by mouth nightly as needed for sleep. Active traMADol (ULTRAM) 50 MG tabletIndicatio ns:CAD, multiple vessel Take 0.5 tablets (25 mg total) by mouth 4 times daily (every 6 hours) as needed for moderate pain. 30 tablet 04/15/2017 Active atenolol (TENORMIN) 50 MG tabletIndicatio ns:CAD, multiple vessel Take 0.5 tablets (25 mg total) by mouth daily. 15 tablet 1 04/16/2017 Active furosemide (LASIX) 40 MG tabletIndicatio ns:Recurrent left pleural effusion,Pleura l effusion on left,S/P CABG x 3,[place] (dyspnea on exertion) Take 1 tablet (40 mg total) by mouth daily. 3 tablet 04/17/2017 Active minocycline (DYNACIN) 100 MG tabletIndicatio ns:Cellulitis of other specified site Take 1 tablet [...] Health Maintenance Due Date Last Done Comments DTaP/Tdap/Td Vaccines (1 - Tdap) 07/25/1963 Pneumococcal Vaccines 50+ (1 of 2 - PCV) 07/25/1963 Zoster (Shingles) Vaccine (1 of 2) 1994 RSV Vaccine 60 years and old er and Patients (1 - 1-dose 75+ series) 07/25/2019 Influenza Vaccine 12/10/2023 COVID-19 Vaccine (2023-2 5 season) 2024 Hepatitis B Vaccines Aged Out No long er eligible based on patient's age to complete this topic Insurance [facility] MEDICARE PART A & B Advance Directives * Full Code (Latest Code Status on File) Date Activated Date Inactivated Comments 04/08/2017 5:20 PM Care Teams Electrotype Servicer Relationship Specialty Start Date End Date Pcp, No PCP - General General Medicine 04/20/17 Sri Curtis MD Senior Mobile Developer Cardiovascular Disease 03/23/17 Alan Angela MD [address] [place] [address] Surgeon Surgery, Cardiac 03/23/17
== END 2024-08-31 11:02 | disposition home or self-care (01) ==
LOC: HO.HOS 10:33
PROVIDERS: PCP Internal Medicine; Visit Provider Orthopaedic Surgery
DX: M25.562 Pain in left knee (principal); Z96.652 Presence of left artificial knee joint
CPT/HCPCS: 99213; G2211

== ENCOUNTER → 2024-08-31 10:33 | Outpatient (BNVA) | payer OTHER, MEDICARE, SELFPAY | PROVIDERS: PCP Internal Medicine; Visit Provider Orthopaedic Surgery ==

== ENCOUNTER 2024-09-26 13:39 | Outpatient (AMB) | payer OTHER, MEDICARE, SELFPAY ==
--- OUTSIDE RECORDS SUMMARY | 2024-09-26 13:41 | XMS_ITS | Encounter Summary ---
Author Organization [facility] Address [address] [place] [address] Care Team Providers Care Patrol Police Lieutenant Name Role Phone Pcp, No Primary Care Provider Unavailabl e Sri Curtis MD Unavailable Alan Angela MD Unavailable [phone] Ander Buck MD PhD Primary Care Provider [phone] Pcp, No Primary Care Provider Unavailabl e Encounter Details Date Type Department Care Team (Late st Contact Info) Description 03/23/2017 Abstract [facility] [place] [address] Bess May, RN [address] [place] [address] CAD, multiple vessel Social History Tobacco Use [...] vessel documented in this encounter Care Teams Patrol Police Lieutenant Relationship Specialty Start Date End Date Pcp, No PCP - General General Medicine 03/20/17 03/26/17 Ander Buck MD PhD [address] [address] PCP - General Family Medicine 03/27/17 03/28/17 Pcp, No PCP - General General Medicine 04/20/17 Sri Curtis MD Ssn/Ssbn Weapons Equipment Operator Cardiovascular Disease 03/23/17 Alan Angela MD [address] [place] [address] Surgeon Surgery, Cardiac 03/23/17 documented as of this encounter
--- OUTSIDE RECORDS SUMMARY | 2024-09-26 13:41 | XMS_ITS | Clinical Summary ---
Author Organization [employer] Address [address] [facility] 7t [place] [address] Care Team Providers Care Interactive Media Marketing Director Name Role Phone Unavailable Primary Care Provider [...] patient's age to complete this topic Meningococcal B Vaccine Aged Out No l onger eligible based on patient's age to complete [...]
--- OUTSIDE RECORDS SUMMARY | 2024-09-26 13:41 | XMS_ITS | Encounter Summary ---
Author Organization [employer] Address [address] [facility] 7 [place] [address] Care Team Providers Care Carriage Dogger Name Role Phone Unavailable Primary Care Provider Unavailabl e Encounter Details Date Type Department Care Team (Latest Contact Info) Description 06/23/2018 Abstract [facility] Dental, Provider, DDS Social History Tobacco [...]
--- OUTSIDE RECORDS SUMMARY | 2024-09-26 13:42 | XMS_ITS | Clinical Summary ---
Author Organization [facility] Address [address] [place] [address] Care Team Providers Care Boat Rigger Name Role Phone Sri Curtis MD Unavailable Alan Angela MD Unavailable [phone] Pcp, No Primary Care Provider Unavailabl e Allergies Active Allergy Reactions Criticality Noted Date Comments Other Other (See Comments) 03/27/2017 Sodium Pentathol- was very slow to wake up after receiving Medications aspirin enteric coated (ECOTRIN LOW STRENGTH) 81 MG EC tablet Take 81 mg by mouth daily. Active atorvastatin (LIPITOR) 40 MG tabletIndicatio ns:Ischemic Heart Disease,Mixed Dyslipidemia,Ac modoc Myocardial Infarction Take 40 mg by mouth [...] Patients (1 - 1-dose 75+ series) 07/25/2019 COVID-19 Vaccine (2023-2 5 season) 2024 Influenza Vaccine 12/09/2024 Hepatitis B Vaccines Aged Out No long er eligible based on patient's age to complete this topic Insurance [facility] MEDICARE PART A & B Advance Directives * Full Code (Latest Code Status on File) Date Activated Date Inactivated Comments 04/08/2017 5:20 PM Care Teams Boat Rigger Relationship Specialty Start Date End Date Pcp, No PCP - General General Medicine 04/20/17 Sri Curtis MD Merchandise Pickup/Receiving Associate Cardiovascular Disease 03/23/17 Alan Angela MD [address] [place] [address] Surgeon Surgery, Cardiac 03/23/17
--- OUTSIDE RECORDS SUMMARY | 2024-09-26 13:42 | XMS_ITS | Data Portability ---
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 15:50:03 12/08/2022 MRI, ankle, w/o contrast completed [facility] (Medical Records) [address] [place], [address], 12/29/2022 06:21:22 01/14/2023 MRI, knee completed [facility] (Medical Records) [address] [place], [address], 01/15/2023 17:16:50 04/06/2023 XR, ankle completed [facility] (Imaging) [address] [place], [address], 04/07/2023 10:55:55 12/03/2023 RF, guidance completed [facility] [address] [place], [address], 02/03/2024 15:29:14 Procedure Notes None recorded. Medical [...] completed pt is not taking this med 04-16- KB Not Available Not Available Not Available [...] Updated DateTime 3 180.34 cm 27.9 kg/m2 48110.4 7 g 100 % 100 % 91 /min 130 mm[Hg] 80 mm[Hg] LASHELL Marsh [facility] 3 14:36:34 Date Recorded Body height Body mass index (BMI) Body weight Heart rate Systolic blood pressure Diastolic blood pressure Provider Name and Address Organization Details Last Updated DateTime 3 180.34 cm 28.3 kg/m2 91503.2 5 g 62 /min 150 mm[Hg] 90 mm[Hg] LASHELL Marsh [facility] 3 09:03:44 Date Recorded Systolic blood pressure Diastolic blood pressure Provider Name and Address Organization Details Last Updated DateTime 07/01/2022 150 mm[Hg] 80 mm[Hg] Katia German MD [address] [place] [address], [address], [facility] 07/01/2022 09:24:20 Date Recorded Body height Body mass index (BMI) Body weight Heart rate Oxygen saturation Oxygen saturation in Arterial blood by Pulse oximetry Systolic blood pressure Diastolic blood pressure Provider Name and Address Organization Details Last Updated DateTime 3 180.34 cm 28.7 kg/m2 17543.0 3 g 81 /min 95 % 95 % 130 mm[Hg] 90 mm[Hg] LASHELL Marsh [facility] 3 14:32:20 Date Recorded Body height Body mass index (BMI) Body weight Heart rate Oxygen saturation Oxygen saturation in Arterial blood by Pulse oximetry Systolic blood pressure Diastolic blood pressure Provider Name and Address Organization Details Last Updated DateTime 3 180.34 cm 29 kg/m2 88102.2 1 g 78 /min 96 % 96 % 110 mm[Hg] 62 mm[Hg] LASHELL Marsh [facility] 3 13:57:19 Date Recorded Body height Body mass index (BMI) Body weight Heart rate Oxygen saturation Oxygen saturation in Arterial blood by Pulse oximetry Systolic blood pressure Diastolic blood pressure Provider Name and Address Organization Details Last Updated DateTime 3 180.34 cm 27.9 kg/m2 49265.4 7 g 66 /min 97 % 97 % 120 mm[Hg] 71 mm[Hg] Yanira [facility] 3 10:36:40 Social History Question Answer Notes LastModified by Organizat ion Details LastModified Time Tobacco Smoking Status Former Smoker smoked stop smoking 1992. 0.5 ppd x 25 years. Katia Edward. [address] [place] [address], [phone], [facility] 01/25/2021 14:12:08 Do You Have An Advance Directive? No Information not available 01/25/2021 Do You Wear A Helmet When Biking? Yes Information not available 09/13/2014 What Is Your Level Of Caffeine Consumption? Moderate 2-3 Daily Information not available 09/13/2014 How Much Tobacco Do You Chew? None [email or web address] Information not available 10/06/2012 What Type Of Diet Are You Following? REGULAR [email or web address] Information not available 01/25/2021 What Is The Highest Grade Or Level Of School You Have Completed Or The Highest Degree You Have Received? [id number] Information not available 01/25/2021 Have There Been Any Changes To Your Family Or Social Situation? No Information not available 01/25/2021 When Did You Quit Smoking? 16+yearssinc elastcigaret te Information not available 03/03/2018 How Many Days In The Past Year Have You Had A Heavy Drinking Consumption (4+ Female, 5+ Male)? 10 Information not available 01/14/2018 Are There Any Guns Present In Your Home? Yes Information not available 09/13/2014 Do You Use Insect Repellent Routinely? No [email or web address] Information not available 01/25/2021 Live Alone Or With Others? Alone Information not available 10/06/2012 Patient Has Health Care Proxy Signed And In Chart No Form Given Today. [email or web address] Information not available 03/27/2011 Marital Status Informatio n not available 10/06/2012 Mosquito Repellent Used Routinely Yes Information not available 09/13/2014 What Was The Date Of Your Most Recent Tobacco Screening? 12/02/2022 [email or web address] Information not available 12/02/2022 How Many Children Do You Have? 2 Son And Daughter Information not available 01/25/2021 What Is Your Current Pack Years? 10-19packyea rs Information not available 03/03/2018 What Is Your Relationship Status? Information not available 01/25/2021 Do You Use Your Seat Belt Or Car Seat Routinely? Yes [email or web address] Information not available 01/25/2021 Seat Belts Used Routinely Yes Information not available 09/13/2014 Are You Sexually Active? Yes Has Female Partner, Uses Condoms. Information not available 05/26/2022 Smoke Alarm In Home Yes Information not available 09/13/2014 Do You Have Smoke And Carbon Monoxide Detectors In Your Home? Yes [email or web address] Information not available 01/25/2021 Are You Passively Exposed To Smoke? No [email or web address] Information not available 01/25/2021 How Much Tobacco Do You Smoke? 0 [email or web address] Information not available 05/24/2020 General Stress Level Medium Information not available 12/28/2013 Do You Use Sunscreen Routinely? Yes Information not available 09/13/2014 How Many Years Have You Smoked Tobacco? 0 [email or web address] Information not available 05/24/2020 Sex: Unknown Functional Status Question Answer Note LastModified by Organizat ion Details LastModified Time Do you use any illicit or recreational drugs? No Information not available 01/25/2021 What is your level of alcohol consumption? Occasional burbon, 2 nights a week, 1-3 drinks. Information not available 01/25/2021 Do you or have you ever used smokeless tobacco? 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 Information not available 01/25/2021 Do you or have you ever used e-cigarettes or vape? Never used electronic cigarettes [email or web address] Information not available 01/25/2021 What is your exercise level? Occasional resistance, [...] conjugate PCV 13 8 completed Not Available [facility] 05/28/2019 02:38:08 Td (adult), 2 Lf tetanus toxoid, preservative free, adsorbed 1 completed Nya Avendaño MD [address] [place] [address], [address], [facility] 12/21/2020 15:24:27 COVID-19 vaccine, vector-nr, rS-Ad26, PF, 0.5 mL 1 completed Not Available [facility] 04/06/2023 17:32:04 pneumococcal polysaccharide PPV23 1 completed Not Available [facility] 05/28/2019 02:34:56 Td (adult), 5 Lf tetanus toxoid, preservative free, adsorbed 1 completed Not Available [facility] 05/28/2019 02:26:11 zoster live 1 completed Not Available [facility] 05/28/2019 02:36:33 Past Encounters Encounter ID Performer Location Encounter Start Date Encounter Closed Date Diagnosis/Indication Diagnosis SNOMED-CT Code Diagnosis ICD10 Code Diagnosis Note [id number] Anuj Strickland III, MD , [facility] [place] [address] [place] [address] 03/11/2000 15:15:00 05/31/2008 02:02:29 [id number] Anuj Strickland III, MD , [facility] [place] [address] [place] [address] 08/07/2000 10:00:00 05/31/2008 02:02:29 [id number] Anuj Strickland III, MD , [facility] [place] [address] [place] [address] [place] [address] 08/25/2000 12:30:00 05/31/2008 02:02:29 [id number] EJ Stuart, [address] [place] [address] 04/02/2001 09:30:00 05/31/2008 02:02:29 [id number] EJ Stuart, [facility] [place] [address] [place] [address] [place] [address] 03/30/2001 10:15:00 05/31/2008 02:02:29 [id number] EJ Stuart, [facility] [place] [address] [place] [address] 05/24/2001 14:00:00 05/31/2008 02:02:29 [id number] Anuj Strickland III, MD , [facility] [place] [address] [place] [address] 07/13/2001 15:30:00 05/31/2008 02:02:29 [id number] [facility] - [facility] [address] [place] [address] 07/20/2001 08:00:00 05/31/2008 02:02:29 [id number] Joycelyn Hernandez MD , [facility] [place] [address] [place] [address] 08/03/2001 17:00:00 05/31/2008 02:02:29 [id number] [facility] [place] [facility] Technologi st Radiology , [facility] [place] [address] [place] [address] 08/04/2001 14:30:00 05/31/2008 02:02:29 [id number] Savage Rizvi PA-C , [facility] [place] [address] [place] [address] 08/24/2001 11:00:00 05/31/2008 02:02:29 [id number] Bess Vazquez, PT Physical Therapy, [facility] [place] [place] [address] [facility] [place] [address] 09/03/2001 09:00:00 05/31/2008 02:02:29 [id number] Savage Rizvi PA-C , [facility] [place] [address] [place] [address] 11/29/2001 14:11:17 05/31/2008 02:02:29 [id number] [facility] - [address] [place] [address] 08/22/2002 08:39:43 05/31/2008 02:02:29 [id number] Kenisha Silva M.D . , [facility], OFFICE [address] [place] [address] 11/27/2002 10:04:40 05/31/2008 02:02:29 [id number] Anuj Strickland III, MD , [facility] [place] [address] [place] [address] 05/22/2003 16:04:54 05/24/2003 08:02:21 [id number] [facility] [place]TR[facility] Technologi st Radiology , [facility] [address] [facility] [place] [address] 06/02/2003 08:06:57 06/02/2003 11:33:17 [id number] [facility] [place] [place] [facility] - [address] [place] [address] 06/02/2003 07:31:55 06/02/2003 14:36:31 [id number] Anuj Strickland III, MD , [facility] [place] [address] [place] [address] 06/26/2003 10:09:14 06/26/2003 16:25:16 [id number] [facility] - [facility] [place] [place] [address] [place] [id number] 06/26/2003 00:00:00 05/31/2008 02:02:29 [id number] Anuj Strickland III, MD , [facility] [place] [address] [place] [id number] 08/10/2003 12:42:29 08/10/2003 17:42:46 [id number] Jovanni AWAN, [facility] [place] [address] [place] [id number] 09/07/2003 08:16:41 09/08/2003 09:08:25 [id number] [facility] [place] [place] Technologi st Radiology , [facility] [address] [place] [id number] 09/11/2003 12:04:13 09/11/2003 14:23:58 [id number] Jovanni AWAN, [facility] [place] [address] [place] [id number] 09/11/2003 11:10:18 09/14/2003 08:15:11 [id number] [facility] - [facility] [address] [place] [id number] 12/20/2003 08:03:48 12/20/2003 08:04:05 [id number] Anuj Strickland III, MD , [facility] [place] [address] [place] [id number] 12/28/2003 07:47:34 12/28/2003 07:51:19 [id number] Anuj Strickland III, MD , [facility] [place] [address] [place] [id number] 01/04/2004 10:37:58 01/05/2004 09:04:31 [id number] FP TREATMENT NURSE [facility], [facility] [place] [address] [place] [id number] 01/18/2004 16:36:05 01/18/2004 17:27:33 [id number] [facility], JODI DE JESUS MD [facility], [facility] [address] [place], [place] [address] 02/15/2004 09:14:31 02/15/2004 17:38:10 [id number] MD EMPERATRIZ Alegria III, [facility] [place] [address] [place] [id number] 06/05/2004 09:20:08 06/06/2004 08:54:17 [id number] Bess Vazquez, PT Physical Therapy, [facility] [address] [place] [id number] 06/07/2004 08:45:59 06/07/2004 09:47:19 [id number] [facility] - [facility] [address] [place] [id number] 06/05/2004 07:24:00 06/05/2004 07:24:27 [id number] Bess Vazquez, PT Physical Therapy, [facility] [address] [place] [id number] 06/11/2004 09:19:32 06/11/2004 10:41:09 [id number] Bess Vazquez, PT Physical Therapy, [facility] [place] [address] 06/13/2004 09:12:45 06/13/2004 10:22:48 [id number] Savage Rizvi PA-C , [facility] [place] [place] [address] [place] [id number] 11/28/2004 14:21:00 11/28/2004 16:01:39 [id number] [facility] [place] Technologi st Radiology , [facility] [address] [place] [id number] 12/13/2004 15:00:55 12/16/2004 08:36:23 [id number] Anuj Strickland III, MD , [facility] [place] [place] [place] [address] [place] [id number] 12/13/2004 14:28:53 12/13/2004 17:23:46 [id number] [facility] - [address] [place] [address] 12/16/2004 07:32:05 12/16/2004 07:33:09 [id number] Anuj Strickland III, MD , [facility] [place] [place] [address] [place] [id number] 03/17/2005 15:28:06 03/18/2005 08:33:35 [id number] Binta Odom , [facility] [place] [place] [address] [place] [id number] 06/16/2005 08:52:02 06/16/2005 15:33:14 [id number] [facility] - [facility] [place] [address] 07/23/2005 07:17:29 07/23/2005 07:17:38 [id number] Anuj Strickland III, MD , [facility] [place] [place] [place] [address] [place] [address] 07/29/2005 12:45:39 07/29/2005 16:03:24 [id number] [facility] - [facility] [place] [address] [place] [id number] 07/29/2005 00:00:00 05/31/2008 02:02:29 [id number] Haley Thurston MD , [facility] [place] [place] [place] [address] [place] [id number] 12/02/2005 16:57:09 12/04/2005 08:11:31 [id number] Anuj Strickland III, MD , [facility] [place] [place] [address] [place] [id number] 01/21/2006 07:53:17 01/21/2006 11:09:09 [id number] [facility] - [facility] [address] [place] [id number] 02/10/2006 07:27:45 02/10/2006 07:27:49 [id number] Jovanni Perez , [facility] [address] [place] [address] 05/06/2006 11:46:06 05/06/2006 15:27:17 [id number] [facility] Technologi Radiology , [facility] [address] [place] [id number] 09/17/2006 13:33:20 09/17/2006 14:03:30 [id number] Viry AWAN, [facility] [place] [address] [place] [id number] 09/17/2006 13:03:39 09/17/2006 14:44:43 [id number] Viry AWAN, [facility] [place] [address] [place] [id number] 09/30/2006 09:26:44 09/30/2006 11:35:28 [id number] [facility] - [facility] [address] [place] [id number] 10/01/2006 08:43:26 10/01/2006 08:43:29 [id number] MD EMPERATRIZ Alegria III, [facility] [place] [address] [place] [id number] 11/26/2006 13:28:03 11/26/2006 16:20:13 [id number] Anuj Strickland III, MD , [facility] [place] [place] [place] [address] [place] [address] 03/23/2007 10:12:26 05/31/2008 02:02:[id number] [place] [address] 03/31/2007 09:18:22 03/31/2007 09:18:26 [id number] Anuj Strickland III, MD , [facility] [place] [place] [address] [place] [address] 07/29/2007 14:25:07 05/31/2008 02:02:29 [id number] [facility] [address] [place] [id number] 09/22/2007 07:50:15 09/22/2007 07:50:18 [id number] Anuj Strickland III, MD , [facility] [place] [place] [address] [place] [address] 03/08/2008 11:06:17 05/31/2008 02:02:29 [id number] Anuj Strickland III, MD , [facility] [place] [place] [address] [place] [address] 04/11/2008 08:58:17 05/31/2008 02:02:[id number] [place] [id number] 04/12/2008 07:19:55 04/12/2008 07:19:[id number] [place] [address] 04/24/2008 11:09:21 04/24/2008 11:09:30 [id number] [facility] [address] [place] [id number] 04/24/2008 00:00:00 05/31/2008 02:02:29 [id number] Anuj Strickland III, MD , [facility] [place] [place] [place] [address] [place] [address] 10/03/2008 15:55:55 10/04/2008 09:10:04 [id number] [facility] [address] [place] [address] 10/04/2008 11:33:49 10/04/2008 11:34:01 [id number] [facility] - [address] [place] [id number] 11/07/2008 07:19:56 11/07/2008 07:19:59 [id number] Binta Mckeon NP , [facility] [place] [place] [address] [place] [address] [address] [place] [id number] 03/13/2009 16:23:05 03/14/2009 08:54:17 [id number] Anuj Strickland III, MD , [address] [place] [id number] 03/19/2009 16:10:27 03/20/2009 09:43:30 [id number] Anuj Strickland III, MD , [address] [place] [id number] 07/11/2009 15:15:56 07/11/2009 16:57:00 [id number] Anuj Strickland III, MD , [address] [place] [id number] 08/02/2009 16:05:05 08/03/2009 08:46:25 [id number] [facility] Technologi st Radiology , [address] [place] [address] 08/02/2009 16:22:12 08/03/2009 10:42:37 [id number] [facility] , [address] [place] [address] 08/02/2009 16:22:42 08/03/2009 10:42:52 [id number] Binta Mckeon NP , [address] [place] [id number] 11/13/2009 11:24:13 11/13/2009 11:49:56 [id number] EJ Singletary, [address] [place] [id number] 01/03/2010 12:07:08 01/03/2010 13:14:14 [id number] MD EMPERATRIZ Alegria III, [address] [place] [id number] 08/09/2010 09:59:54 08/12/2010 08:25:44 [id number] [facility] Technologi st Radiology , [address] [place] [address] 08/26/2010 10:06:09 08/29/2010 11:14:01 [id number] TREATMENT NURSE [facility], [facility] [place] [address] [place] [address] [place] [address] 08/26/2010 10:40:13 08/26/2010 11:06:26 [id number] Emigdio Nicole MD , [address] [place] [address] 12/09/2010 09:48:12 12/10/2010 14:42:57 [id number] Anuj Strickland III, MD , [facility] [place] [address] [place] [address] [place] [address] 02/05/2011 09:28:18 02/05/2011 09:42:47 [id number] Anuj Strickland III, MD , [address] [place] [address] 08/05/2011 10:35:13 08/05/2011 11:16:35 [id number] Anuj Strickland III, MD , [address] [place] [address] 1 10/06/2012 09:56:56 10/06/2012 10:24:27 [id number] Anuj Strickland III, MD , [address] [place] [address] 03/29/2013 14:24:28 03/30/2013 08:08:41 Neck pain [id number] Cervical radiculitis [id number] Anuj Strickland III, MD , [address] [place] [address] 09/13/2014 13:50:23 09/13/2014 14:29:16 Adult health examination [id number] see Risk Assessment and Lifestyle Change Counseling section above Counseling [id number] Infestatio n by Sarcoptes scabiei annika hominis [id number] Mixed hyperlipidemia [id number] Anuj Strickland III, MD , [address] [place] [address] 10/17/2014 13:54:39 11/10/2014 11:40:16 Insect bite - wound [id number] Focal edema [id number] EJ Singletary, [facility] [place] [address] [place] [address] [place] [address] 10/11/2015 13:19:10 10/11/2015 13:50:14 Right upper quadrant pain [id number] R10.11 suspect biliary. Check labs and US. [id number] Igor Llamas MD , [facility] [address] [place] [phone] 02/22/2016 07:43:13 02/22/2016 08:06:55 Screening for malignant neoplasm of colon [id number] Z12.11 Referral for a DIRECT booked colonoscop y. This patient is a healthy ASA Class 1 or 2 patient (only mild systemic disease), or a STABLE, well controlled insulin dependent diabetic. They do not have serious cardiac disease ie WV/angiopl asty within 1 year, symptomati c CHF; renal failure with CKD 4 or 5; take Coumadin, Plavix, Aggrenox, etc. Axillary lymphadenopathy [id number] R59.0 [id number] Igor Llamas MD [facility], OFFICE [address] [place] [phone] 10/01/2016 16:24:54 10/02/2016 13:32:14 Chest pain [id number] R07.9 [id number] Igor Llamas MD , [facility] [place] [address] [place] [address] 11/26/2016 08:59:28 11/26/2016 11:41:52 Adult health examination 789658115 Z00.00 see Risk Assessment and Lifestyle Change Counseling section above Counseling 498607220 Z71 .9 Mixed hyperlipidemia 267 394604 E78.2 Disorder o f rotator cuff 313164230 M75.102 Tear of me niscus of knee 325054813 S83.207A [id number] Igor Llamas MD , [facility] [place] [place] [address] [place] [address] 12/24/2016 10:38:36 12/24/2016 12:03:13 Chest pain 83867331 R07.9 Venereal d isease screening 341294161 Z11.3 [id number] Fernandez Haywood MD Sports Medicine, [facility] [place] [address] [place] [address] 01/19/2017 12:59:44 01/20/2017 11:42:20 Pain of shoulder region 17012159 M25.512 Anuj is a 71-year-ol d male [...] motion exercises to prevent any shoulder stiffness. [id number] Fernandez Haywood MD Sports Medicine, [address] [address] 02/23/2017 13:37:14 02/24/2017 13:30:56 Pain of shoulder region 55452165 M25.512 Anuj is a 71-year-ol d male [...] on an as-needed basis for further care. [id number] Igor Llamas MD , [facility] [place] [address] [place] [address] 02/26/2017 10:45:27 02/26/2017 11:11:39 Rotator cuff syndrome 7538980 M75.100 Acute myoc ardial infarction 34835005 I21.3 [id number] Cherry Tim D.O. , [facility] [place] [place] [address] [place] [address] 04/16/2017 11:13:07 04/16/2017 12:22:56 Atrial fibrillation 26337702 I48.91 NSR today by examnew on coumadinwi ll need coumadin teach when he is more rested Coronary arteriosclerosis 68499632 I25.10 s/p CABG with 3 arteries- [facility] Anemia 910804869 D64.9 recommende d trending cbc- will do next week [id number] Igor Llamas MD , [facility] [place] [address] [place] [address] 05/28/2017 11:39:26 05/28/2017 12:12:06 Benign essential hypertension 4010970 I10 Blood pressure at goal Blood pressure NOT at goal. Mixed hyperlipidemia 267 859943 E78.2 Screening for malignant neoplasm of colon 848275750 Z12.11 Rupture of rotator cuff of left shoulder [id number] 8601512 M75.115 [id number] Igor Llamas MD , [facility] [place] [address] [place] [address] 09/10/2017 10:52:53 09/10/2017 11:23:08 Benign essential hypertension 3741182 I10 Blood pressure at goal Blood pressure NOT at goal. Mixed hyperlipidemia 267 929986 E78.2 Coronary arteriosclerosis 43401082 I25.10 Rotator cuff syndrome 41 17097 M75.651 [id number] Nilesh Morin MD , [facility], OFFICE [address] [place] [address] 12/14/2017 14:12:41 12/14/2017 17:03:03 Cough 24043410 R05 Differenti al diagnosis (potential causes) of [...] fever, shortness of breath, or hemoptysis occurs. [id number] Igor Llamas MD , [facility] [place] [address] [place] [address] 01/14/2018 08:47:45 01/14/2018 09:49:39 Mixed hyperlipidemia 535507475 E78.2 Coronary arteriosclerosis 25144540 I25.10 Benign ess ential hypertension 2790776 I10 Blood pressure at goal Blood pressure NOT at goal. [id number] Igor Llamas MD , [facility] [place] [address] [place] [address] 03/03/2018 09:58:38 03/03/2018 10:31:51 Coronary arteriosclerosis 56636995 I25.10 Acute myoc ardial infarction 68880986 I21.3 Benign ess ential hypertension 3274835 I10 Blood pressure at goal Blood pressure NOT at goal. [id number] Igor Llamas MD , [facility] [place] [place] [address] [place] [address] 04/07/2018 10:46:49 04/07/2018 11:42:05 Adult health examination 327555213 Z00.00 see Risk Assessment and Lifestyle Change Counseling section above Counseling 123573236 Z71 .9 Depression screening 171 633637 Z13.89 depression screening tool administer ed, entered into emr, scored and discussed, time greater than 7.5 minutes Benign ess ential hypertension 4988749 I10 Blood pressure at goal Blood pressure NOT at goal. Mixed hyperlipidemia 267 057974 E78.2 Active or passive immunization 261764853 Z23 [id number] Igor Llamas MD , [facility] [place] [address] [place] [address] 05/13/2018 10:50:59 05/13/2018 11:31:03 Acute myocardial infarction 99501797 I21.3 Benign ess ential hypertension 0297949 I10 Blood pressure at goal Coronary arteriosclerosis 61383175 I25.10 [id number] Igor Llamas MD , [facility] [place] [place] [address] [place] [address] 10/13/2018 09:41:57 10/13/2018 10:10:54 Mixed hyperlipidemia 548408050 E78.2 Cholestero l is at goal Cholestero l is not at goal Continue to work on diet and exercise as discussed Aortic valve stenosis 60 883820 I35.0 Acute myoc ardial infarction 58323774 I21.3 Benign ess ential hypertension 8574020 I10 Blood pressure at goal [id number] Igor Llamas MD , [facility] [place] [place] [address] [place] [address] 05/18/2019 10:55:29 05/18/2019 11:35:48 Adult health examination 117598143 Z00.00 see Risk Assessment and Lifestyle Change Counseling section above Counseling 279301926 Z71 .9 Depression screening 171 007688 Z13.89 depression screening tool administer ed, entered into emr, scored and discussed, time greater than 7.5 minutes Mixed hyperlipidemia 267 714935 E78.2 Cholestero l is at goal Cholestero l is not at goal Continue to work on diet and exercise as discussed Benign ess ential hypertension 0542962 I10 Blood pressure at goal Coronary arteriosclerosis 18601671 I25.10 Gastroesop hageal reflux disease 182369407 K21.9 [id number] Igor Llamas MD , [facility] [place] [place] [address] [place] [address] 11/16/2019 10:58:12 11/16/2019 11:20:43 Mixed hyperlipidemia 981192584 E78.2 Cholestero l is at goal Cholestero l is not at goal Continue to work on diet and exercise as discussed Essential hypertension 63611458 I10 [id number] Nya Avendaño MD , [facility] [place] [place] [address] [place] [address] 12/20/2020 15:55:03 12/20/2020 17:29:03 Cellulitis 199654990 L03.90 Active or passive immunization 802290314 Z23 [id number] Katia Edward . , [facility] [place] [place] [address] [place] [address] 01/25/2021 13:45:24 01/25/2021 14:44:00 Mixed hyperlipidemia 383726976 E78.2 Cholestero l is at goal, wants to decrease atorvastat in to 40 mg.Continu e to work on diet and exercise as discussed Essential hypertension 97415095 I10 BP at target below 130/80. continue same. Adult heal th examination 202269905 Z00.00 USPSTF guidelines reviewed and discussed with patient.he does not want further colonoscop y, has been doing FIT kits.does not wants flu shots or Shingrix. Counseling 892439827 Z71 .9 including cardiovasc ular risk reduction counseling . is on statin and asa. Depression screening 171 066829 Z13.31 depression screening tool administer ed, entered into emr, scored and discussed, time greater than 7.5 minutes, negative screen. Screening for alcohol abuse 451820051 Z13.39 negative screen. Advance di rective discussed with patient 431273505 Z71.89 form discussed, given to complete. Impaired f asting glycemia 380729292 R73.01 mild, work on diet. Gastroesop hageal reflux disease 384378346 K21.9 takes famotidine prn. Coronary arteriosclerosis 72956604 I25.10 HX [place], denies sx. continue meds. had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
--- OUTSIDE RECORDS SUMMARY | 2024-09-26 13:42 | XMS_ITS | Encounter Summary ---
Author Organization [facility] Address [address] [place] [address] Care Team Providers Care Plate Glass Installer Helper Name Role Phone Pcp, No Primary Care Provider Unavailabl e Sri Curtis MD Unavailable Alan Angela MD Unavailable [phone] Ander Buck MD PhD Primary Care Provider [phone] Pcp, No Primary Care Provider Unavailabl e Encounter Details Date Type Department Care Team (Latest Contact Info) Description 03/26/2017 Prep for Surgery [facility] [place] [address] Bess May, RN [address] [place] [address] CAD, multiple vessel (Primary Dx); Preop testing; [...] more information on this test, go to: http://education.Sonopia/faq/RES623 Blood specimen (specimen) Blood specimen / Unknown 03/27/2017 1:00 PM EST 03/27/2017 1:00 PM EST Narrative [facility] - 03/28/2017 4:48 AM EST FASTING:NO Resulting Agency Comment Performing Organization Information: ?Site ID: [id number] ?Name: [facility] ?Address: [address] [place] [address], [place] [address] ?Director: Camelia Bassett MD us Alan Angela MD LAB BLOOD ORDERABLES Final Res ult [facility] [address] [place] [address], [place] [address] * Complete Blood Count, with [...] Performing Organization Information: ?Site ID: [id number] ?Name: [facility] [employer] ?Address: [address] [place] [address], [place] [address] ?Director: Camelia Bassett MD us Alan Angela MD LAB BLOOD ORDERABLES Final Res ult [facility] [address] [place] [address], [place] [address] * (ABNORMAL) Basic Metabolic Panel (03/27/2017 1:00 [...] approximately 13% higher for people identified as -Bermudian. eGFR Non- 80 > OR = 60 [...] Performing Organization Information: ?Site ID: [id number] ?Name: [facility] ?Address: [address] [place] [address], [place] [address] ?Director: Camelia Bassett MD us Alan Angela MD LAB BLOOD ORDERABLES Final Res ult [facility] [address], [place] [address] documented in this encounter Visit Diagnoses Diagnosis CAD, multiple vessel- Primary Preop testing Unspecified pre-operative examination Angina effort Other and unspecified angina pectoris documented in this encounter Care Teams Plate Glass Installer Helper Relationship Specialty Start Date End Date Pcp, No PCP - General General Medicine 03/20/17 03/26/17 Ander Buck MD PhD [address] [place] [address] PCP - General Family Medicine 03/27/17 03/28/17 Pcp, No PCP - General General Medicine 04/20/17 Sri Curtis MD Book Author Cardiovascular Disease 03/23/17 Alan Angela MD [address] [address] Surgeon Surgery, Cardiac 03/23/17 documented as of this encounter
--- OUTSIDE RECORDS SUMMARY | 2024-09-26 13:42 | XMS_ITS | Encounter Summary ---
Author Organization [facility] Address [address] [place] [address] Care Team Providers Care Fuel Cell Builder Name Role Phone Sri Curtis MD Unavailable Alan Angela MD Unavailable [phone] Pcp, No Primary Care Provider Unavailabl e Encounter Details Date Type Department Care Team (Late st Contact Info) Description 04/16/2017 Abstract [facility] [place] [address] Bess May, ALLAN [address] [place] [address] Social History Tobacco Use Types Packs/Day Years [...] on filedocumented in this encounter Care Teams Fuel Cell Builder Relationship Specialty Start Date End Date Pcp, No PCP - General General Medicine 04/20/17 Sri Curtis MD Refrigerator Room Clerk Cardiovascular Disease 03/23/17 Alan Angela MD [address] [place] [address] Surgeon Surgery, Cardiac 03/23/17 documented as of this encounter
--- NOTE | 2024-09-26 13:58 | A.SPINEOV_ITS ---
Intake Visit Reasons: back & R leg pain Intake Note: Mr. Temple is here today c/o back and rt. leg pain. Yarn Tester Required: No Allergies thiopental [From Pentothal] Adverse Reaction (Severe, Verified 08/31/24 10:47) During Dental Surgery- Could not wake up - years ago Black fly Bites Allergy (Severe, Uncoded 08/31/24 10:47) Swelling Assessment & Plan Assessment & Plan (1) Lumbar stenosis with neurogenic claudication: Code(s): M48.062 - Spinal stenosis, lumbar region with neurogenic claudication Category: Medical Plan Mr Temple returns in follow-up. He had a right L3-4 and right L4-5 hemilaminotomy and foraminotomy done last year with good success, but he has had some recurrence of symptoms. Specifically in the right ankle and into the right lower calf he will get pain with standing and it radiates up into his anterior thigh with numbness and tingling. It is a little bit elusive in that sometimes he can do activities such as dancing in bowling 4 hours without problems but at other times just simply standing in a position doing dishes will cause him to vallejo ve the pain. It is a little atypical and that it starts lower down at the ankle and radiates up to the thigh. He is frustrated because at times he feels like he is in limbo being unable to participate in his activities that he enjoys so much. On exam his strength is good and reflexes are normal. Gait is slightly antalgic. He has been reluctant to get another MRI, I believe because of claustrophobia, but we did get standing x-rays last time he was here and this shows what looks like worsening of scoliotic curvature worse at L3-4 with right- sided disc collapse. I suspect it is a combination of the L3-4 and L4-5 curvature in the upright posture that is giving him these symptoms when he is standing. I do not quite understand why it does not happen when he is dancing or bowling. In order clarify this I would like to get a right L4 and right L5 TFESI just so we can be sure that it is coming from the back still and not something else altogether. I told him to give me a call once the injections done. I will send him to here at [place]. Total amount of time spent in this visit was 20 minutes in discussion of symptoms, lumbar x-ray imaging results and subsequent plan of care Kameron Easley MD,PhD [facility] Orders: Referrals Pain Management Referral M48.062 - Spinal stenosis, lumbar region with neurogenic claudication Coding Level of Care Code Est Pt Level 3 (07606) Diagnoses Lumbar stenosis with neurogenic claudication M48.062
== END 2024-09-26 15:12 | disposition home or self-care (01) ==
LOC: HO.HNS 13:39
PROVIDERS: Visit Provider Physician Assistant
DX: M48.062 Spinal stenosis, lumbar region with neurogenic claudication (principal)
CPT/HCPCS: 99213

== ENCOUNTER → 2024-09-26 13:39 | Outpatient (BNVA) | payer OTHER, MEDICARE, SELFPAY | PROVIDERS: Visit Provider Physician Assistant ==

== ENCOUNTER 2025-01-23 13:28 | Outpatient (AMB) | payer OTHER, MEDICARE, SELFPAY ==
[2025-01-23 13:46] VITALS: BP 126/52; PULSE 80; O2SAT 95; BMI 26.4
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
--- OUTSIDE RECORDS SUMMARY | 2025-01-23 18:43 | XMS_ITS | Clinical Summary ---
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 Active atorvastatin (LIPITOR) 80 MG tabletIndication s:Medication refill TAKE 1 TABLET BY MOUTH EVERY DAY 90 tablet 3 11/10/2018 Active cimetidine (TAGAMET) 200 MG tablet Take 200 mg by mouth 4 (four) times a day. Active Active Problems Problem Noted Date Diagnosed Date Chronic pain of left ankle 04/06/2023 Tricuspid regurgitation 11/12/2018 Aortic valve stenosis 09/29/2018 Assessment & Plan (05/25/2019 4:32 PM EST): We will check yearly echoes again is good to be a while until this becomes a problem Coronary artery disease invo lving coronary bypass graft of [place] heart without angina pectoris 05/08/2017 Assessment & Plan (08/28/2017 11:43 AM EDT): Anuj is doing well he's a preserved ejection fraction no further angina. His atypical chest pains usually when he wakes up in the morning I think this could be reflux asked him to try an H2 amanda. He should continue on his current medications continue cardiac rehabilitation. I'm okay with going bowling. LDL was 88 months ago recheck is pending our less than 70 increase Lipitor to 80 if needed he should stay on his atenolol as well Assessment & Plan (05/08/2017 12:09 PM EST): Anuj is doing well now couple weeks post coronary artery bypass grafting at [facility]. He had some minor postoperative issues which are better he did have a large left pleural effusion that required repeat admission and drainage. However he feels well. He reportedly had some brief postoperative atrial fibrillation but nothing that wanted Coumadin therapy apparently. He still is short of breath but getting better. We talked about doing cardiac rehabilitation hospital. He remains on aspirin and statin atenolol which I'm not changing today. I did ask for a repeat echocardiogram and a Holter monitor to further evaluate his atrial fibrillation. PAF (paroxysmal atrial fibrillation) 05/08/2017 Assessment & Plan (06/19/2017 9:37 AM EST): He did not have any atrial fibrillation on his Holter monitor. Assessment & Plan (05/08/2017 12:27 PM EST): Postoperative atrial fibrillation did not warrant anticoagulation I will get a Holter monitor just to follow this up. Hyperlipidemia 03/20/2017 Hypertension 03/20/2017 Assessment & Plan (06/19/2017 9:37 AM EST): Blood pressure today is normal. Atherosclerosis of [place] co ronary artery of [place] heart with unstable angina pectoris 03/20/2017 Assessment & Plan (05/25/2019 4:32 PM EST): Asymptomatic doing well since his bypass surgery he needs to lose some weight exercise routinely. I will have his last labs but his LDL goal should be less than 70 if it is not we may want to switch his Lipitor 80 to Crestor 40. I will try to get these labs or I told him his PCP could also adjust if he has the numbers. Assessment & Plan (06/19/2017 9:38 AM EST): The patient is just over 2 months post coronary artery bypass grafting 3. He is doing very well. He had an echocardiogram to follow-up to pericardial effusion that he had postoperatively. The echocardiogram is stable and shows no evidence of pericardial effusion. He had some atrial fibrillation postoperatively. His Holter monitor shows no evidence of A. Fib. The patient has a follow-up appointment with Dr. Curtis which has been previously arranged for August. Assessment & Plan (03/20/2017 9:12 AM EST): Anuj is angina free after his recent hospitalization. We went over again in detail his coronary anatomy and choices for revascularization. I feel that surgical requisition is the best that and my colleagues including Dr. Bailon who saw him in the hospital also agrees. I think he would benefit from arterial conduits using a VALLEJO to his LAD and a GEOVANY to the right coronary artery and perhaps a radial to the obtuse marginal. I like him evaluated by [facility]. Patient is in agreement. We will continue his current medications. Regarding his dual antiplatelet therapy will have to make a decision whether we will hold his platelet therapy altogether prior to surgery (we do have some data for short-term dual antiplatelet therapy would resolute stents) or perhaps with the Plavix and perform the surgery on Plavix. This remains to be seen. Old anterior wall myocardial infarction 03/20/20 17 Rotator cuff tear 03/14/2017 Assessment & Plan (03/14/2017 5:36 AM EDT): I was hoping to start this patient on a low-dose narcotic for shoulder pain. He has refused any pain medicines. He is also suffering from insomnia due to the pain and refuses a sleeping pill. The patient hopes to have surgery eventually, however, the recent myocardial infarction has precluded surgery for some time. CAD in [place] artery 03/14/2017 Chest pain 03/13/2017 Assessment & Plan (03/14/2017 5:34 AM EDT): This case is complicated by his extreme shoulder pain. Given his known cardiovascular disease and risk factors he is admitted now to rule out myocardial infarction. Lipid panel is ordered. The patient has been treated with aspirin. An echocardiogram is not ordered as he had one so recently. Cardiology is consulted. His blood pressure is slightly elevated. For the possibility of ischemia and for the blood pressure nitro paste is placed. Immunizations No known immunizations Family History Medical History Relation Comments Heart disease Brother Heart disease Father Colon cancer Mother Heart disease Paternal Grandfather Relation Status Comments Brother Father Mother Paternal Grandfather Social History Tobacco Use Types Packs/Day Years Used Date Smoking Tobacco: Former Cigarettes 0.5 30 Smokeless Tobacco: Never Tobacco Cessation:Counseling Given: Not Answered Alcohol Use Standard Drinks/Week Comments Yes 3 (1 standard drink = 0.6 oz pur e alcohol) few times a week. Education Answer Date Recorded Are you interested in more education? Not on megan e 09/05/2022 Are you concerned about learning? Not on file 09/05/2022 No 09/05/2022 No 09/05/2022 Digital Access Answer Date Recorded No 10/04/2022 No 10/04/2022 Reliable internet access at home? Not on file 10/04/2022 Device with a working camera? Not on file Sex and Gender Information Value Date Recorded Sex Assigned at Not on file Legal Sex Male 10:09 PM EDT Gender Identity Not on file Sexual Orientation Not on file Last Filed Vital Signs Vital Sign Reading Time Taken Comments Blood Pressure 124/62 05/25/2019 3:44 PM EST Pulse 76 05/25/2019 3:44 PM EST Temperature 36.7 C (98.1 F) 03/14/2017 10:00 AM EDT Respiratory Rate 17 03/14/2017 10:00 AM EDT Oxygen Saturation 97% 05/25/2019 3:44 PM EST Inhaled Oxygen Concentration - - Weight 88.5 kg (195 lb) 04/06/2023 1:58 PM EST Height 182.9 cm (6') 04/06/2023 1:58 PM EST Body Mass Index 26.45 04/06/2023 1:58 PM EST Plan of Treatment Health Maintenance Due Date Last Done Comments BLOOD PRESSURE 1944 DEPRESSION SCREENING 1956 SMOKING Hx and SMOKELESS TOBACCO SCREENING 1957 ZOSTER VACCINES (2 of 3) 10/21/2010 08/26/2010 RSV VACCINE (1 - 1-dose 75+ series) 07/25/2019 INFLUENZA VACCINE (#1) 2024 COVID-19 VACCINE (2 - 2024-2 6 season) 2025 08/20/2020 Adult Td,Tdap Booster 12/20/2030 12/20/2020 , 08/09/2010 PNEUMOCOCCAL VACCINES (50+ years) Completed 04/07/2018, 08/09/2010 HEPATITIS A VACCINES Aged Out No long er eligible based on patient's age to complete this topic HIB VACCINES Aged Out No longer eligi ble based on patient's age to complete this topic MENINGOCOCCAL VACCINES (ACWY) Aged Out No longer eligible based on patient's age to complete this topic MENINGOCOCCAL VACCINES (B) Aged Out N o longer eligible based on patient's age to complete this topic Medical Devices Not on file Insurance MEDICARE PART A & B [facility] MEDICARE SUPPLEMENT MEDICARE PART A & B Member Subscriber Plan / Payer (Ef fective 2009-Present) Name:Anuj Temple Member ID:[id number] Relation to Subscriber:Self Name:Anuj Temple Subscriber ID:[id number] Payer ID:[id number] Group ID:Not on file Type:Medicare Address: [employer] [address] MEDICARE SUPPLEMENT MEDICARE PART A & B MEDICARE SUPPLEMENT MEDICARE PART A & B MEDICARE SUPPLEMENT MEDICARE PART A & B Member Subscriber Plan / Payer (Ef fective 2009-Present) Name:Anuj Temple Member ID:[id number] Relation to Subscriber:Self Name:Anuj Temple Subscriber ID:[id number] Payer ID:[id number] Group ID:Not on file Type:Medicare Address: [facility] TV [facility] [address] [place] [address] MEDICARE SUPPLEMENT MEDICARE PART A & B Member Subscriber Plan / Payer (Ef fective 2009-Present) Name:Anuj Temple Member ID:[id number] Relation to Subscriber:Self Name:Anuj Temple Subscriber ID:[id number] Payer ID:[id number] Group ID:Not on file Type:Medicare Address: [employer] [address] MEDICARE SUPPLEMENT MEDICARE PART A & B MEDICARE SUPPLEMENT MEDICARE PART A & B Member Subscriber Plan / Payer (Ef fective 2009-Present) Name:Anuj Temple Member ID:[id number] Relation to Subscriber:Self Name:Anuj Temple Subscriber ID:[id number] Payer ID:[id number] Group ID:Not on file Type:Medicare Address: [employer] [address] MEDICARE SUPPLEMENT MEDICARE PART A & B MEDICARE SUPPLEMENT [employer] MEDICARE PART A & B [facility] MEDICARE SUPPLEMENT Advance Directives For more information, please contact: [phone] (9AM - 5PM [facility]ri/[facility], Thursday-Thursday) * Full Code (Confirmed) (Latest Code Status on File) Date Activated Date Inactivated Comments 03/14/2017 12:03 AM 03/14/2017 4:21 PM Question Answer Comments Code Discussion Comments: patient Care Teams Mechanical Spreader Operator Relationship Specialty Start Date End Date Harika Llamas MD [email or web address] PCP - General Family Medicine 03/13/17 Additional Source Comments The information contained in this document represents components of the legal health record. It is not the complete legal health record.[facility]
--- OUTSIDE RECORDS SUMMARY | 2025-01-23 18:43 | XMS_ITS | Encounter Summary ---
Author Organization [facility] Address [address] [place] [address] Care Team Providers Care Business And Financial Counsel Name Role Phone Sri Curtis MD Unavailable Alan Angela MD Unavailable [phone] Pcp, No Primary Care Provider Unavailabl e Encounter Details Date Type Department Care Team (Late st Contact Info) Description 04/16/2017 Abstract [facility] [place]oth[place] [address] Bess May, ALLAN [address] [place] [address] Social History Tobacco Use Types Packs/Day Years [...] on filedocumented in this encounter Care Teams Business And Financial Counsel Relationship Specialty Start Date End Date Pcp, No PCP - General General Medicine 04/20/17 Sri Curtis MD Captain Airline [employer] Cardiovascular Disease 03/23/17 Alan Angela MD [address] [place] [address] Surgeon Surgery, Cardiac 03/23/17 documented as of this encounter
--- OUTSIDE RECORDS SUMMARY | 2025-01-23 18:43 | XMS_ITS | Encounter Summary ---
Author Organization [facility] [facility] Address [address] [place] [address] [address] [place] [address] Care Team Providers Care Surg Tech Name Role Phone Unavailable Primary Care Provider [...]
--- OUTSIDE RECORDS SUMMARY | 2025-01-23 18:43 | XMS_ITS | Clinical Summary ---
Author Organization [employer] Address [address] [facility] [address] [place] [address] Care Team Providers Care Pottery Decorator Name Role Phone Unavailable Primary Care Provider [...] - 1-dose 75+ series) 07/25/2019 COVID-19 Vaccine (1 - 2023-2 5 season) 2025 Influenza Vaccine (#1) 2025 HIB Vaccines Aged Out No longer eligi [...]
--- OUTSIDE RECORDS SUMMARY | 2025-01-23 18:43 | XMS_ITS | Encounter Summary ---
Author Organization [facility] Address [address] [place] [address] Care Team Providers Care Central Processing Tech Name Role Phone Pcp, No Primary Care Provider Unavailabl e Sri Curtis MD Unavailable Alan Angela MD Unavailable [phone] Ander Buck MD PhD Primary Care Provider [phone] Pcp, No Primary Care Provider Unavailabl e Encounter Details Date Type Department Care Team (Late st Contact Info) Description 03/23/2017 Abstract [facility] [place] [address] Bess May, RN [address] [place] [address] CAD, multiple vessel Social History Tobacco Use [...] vessel documented in this encounter Care Teams Central Processing Tech Relationship Specialty Start Date End Date Pcp, No PCP - General General Medicine 03/20/17 03/26/17 Ander Buck MD PhD [address] [place] [address] PCP - General Family Medicine 03/27/17 03/28/17 Pcp, No PCP - General General Medicine 04/20/17 Sri Curtis MD Foot Roentgenologist Cardiovascular Disease 03/23/17 Alan Angela MD [address] [place] [address] Surgeon Surgery, Cardiac 03/23/17 documented as of this encounter
--- OUTSIDE RECORDS SUMMARY | 2025-01-23 18:43 | XMS_ITS | Clinical Summary ---
Author Organization [facility] Address [address] [place] [address] Care Team Providers Care Urologist Md Name Role Phone Sri Curtis MD Unavailable Alan Angela MD Unavailable [phone] Pcp, No Primary Care Provider Unavailabl e Allergies Active Allergy Reactions Criticality Noted Date Comments Other Other (See Comments) 03/27/2017 Sodium Pentathol- was very slow to wake up after receiving Medications aspirin enteric coated (ECOTRIN LOW STRENGTH) 81 MG EC tablet Take 81 mg by mouth daily. Active atorvastatin (LIPITOR) 40 MG tabletIndicatio ns:Ischemic Heart Disease,Mixed Hyperlipidemia, Acute Myocardial Infarction Take 40 mg by mouth [...] 88 05/15/2017 9:00 AM EST Temperature 36.8 C (98.3 F) 05/15/2017 9:00 AM EST Respiratory Rate 16 05/15/2017 9:00 AM EST Oxygen Saturation 97% 05/15/2017 9:00 AM EST Inhaled Oxygen Concentration - - Weight 83.6 kg (184 lb 4.8 oz) 05/15/2017 9:00 A M EST Height 182.9 cm (6') 05/15/2017 9:00 AM EST Body Mass Index 25 05/15/2017 9:00 AM EST Plan of Treatment Health Maintenance Due Date Last Done Comments Advance Care Planning 1945 DTaP/Tdap/Td Vaccines (1 - Tdap) 07/25/1963 Pneumococcal Vaccines 50+ (1 of 2 - PCV) 07/25/1963 Zoster (Shingles) Vaccine (1 of 2) 1994 RSV Vaccine 60 years and old er and Patients (1 - 1-dose 75+ series) 07/25/2019 Influenza Vaccine 12/09/2024 COVID-19 Vaccine ( - 2023-2 5 season) 2025 Hepatitis B Vaccines Aged Out No long er eligible based on patient's age to complete this topic Insurance [facility] MEDICARE PART A & B Advance Directives * Full Code (Latest Code Status on File) Date Activated Date Inactivated Comments 04/08/2017 5:20 PM Care Teams Urologist Md Relationship Specialty Start Date End Date Pcp, No PCP - General General Medicine 04/20/17 Sri Curtis MD Disk Grinder Cardiovascular Disease 03/23/17 Alan Angela MD [address] [place] [address] Surgeon Surgery, Cardiac 03/23/17
--- OUTSIDE RECORDS SUMMARY | 2025-01-23 18:43 | XMS_ITS | Encounter Summary ---
Author Organization [facility] Address [address] [place] [address] Care Team Providers Care Salad Chef Name Role Phone Pcp, No Primary Care Provider Unavailabl e Sri Curtis MD Unavailable Alan Angela MD Unavailable [phone] Ander Buck MD PhD Primary Care Provider [phone] Pcp, No Primary Care Provider Unavailabl e Encounter Details Date Type Department Care Team (Latest Contact Info) Description 03/26/2017 Prep for Surgery [facility] [place] [address] Bess May, RN [address] [place] [address] CAD, multiple vessel (Primary Dx); Preop testing; [...] 1.0 [facility] Comment: Reference Range 0.9-1.1 Moderate-intensity Warfarin Therapy 2.0-3.0 Higher-intensity Warfarin Therapy 3.0-4.0 Prothrombin Time (PT) 10.7 9.0 - 11.5 sec [facility] Comment: For more information on this test, go to: http://education.[employer]/faq/MEF972 Blood specimen (specimen) Blood specimen / Unknown 03/27/2017 1:00 PM EST 03/27/2017 1:00 PM EST Narrative [facility] - 03/28/2017 4:48 AM EST FASTING:NO Resulting Agency Comment Performing Organization Information: Site ID: [id number] Name: [employer] [facility] Address: [address] [place] [address], [place] [address] Director: Camelia Bassett MD us Alan Angela MD LAB BLOOD ORDERABLES Final Res ult [facility] [address] [place] [address], [place] [address] * Complete Blood Count, with [...] FASTING:NO Resulting Agency Comment Performing Organization Information: Site ID: [id number] Name: [employer] Address: [address] [place] [id number] Director: Camelia Bassett MD us Alan Angela MD LAB BLOOD ORDERABLES Final Res ult [facility] [address] [place] [address] * (ABNORMAL) Basic Metabolic Panel (03/27/2017 1:00 PM EST) Glucose 108(H) 65 - 99 mg/dL [facility] Comment: Fasting reference interval For someone without known [...] approximately 13% higher for people identified as -Algerian. eGFR Non- 80 > OR = 60 [...] FASTING:NO Resulting Agency Comment Performing Organization Information: Site ID: [id number] Name: [employer] Address: [address] [place] [address], [place] [address] Director: Camelia Bassett MD Alan Angela MD LAB BLOOD ORDERABLES Final Res ult [facility] [address] [place] [address], [place] [address] documented in this encounter Visit Diagnoses Diagnosis CAD, multiple vessel- Primary Preop testing Unspecified pre-operative examination Angina effort Other and unspecified angina pectoris documented in this encounter Care Teams Salad Chef Relationship Specialty Start Date End Date Pcp, No PCP - General General Medicine 03/20/17 03/26/17 Ander Buck MD PhD [address] [place] [address] PCP - General Family Medicine 03/27/17 03/28/17 Pcp, No PCP - General General Medicine 04/20/17 Sri Curtis MD Appraiser Real Estate Cardiovascular Disease 03/23/17 Alan Angela MD [address] [place] [address] Surgeon Surgery, Cardiac 03/23/17 documented as of this encounter
== END 2025-01-23 14:56 | disposition home or self-care (01) ==
PROVIDERS: PCP Internal Medicine; Visit Provider Internal Medicine
DX: I10 Essential (primary) hypertension (principal); E78.2 Mixed hyperlipidemia; I25.10 Atherosclerotic heart disease of native coronary artery without angina pectoris; M51.360 Other intervertebral disc degeneration, lumbar region with discogenic back pain only; K21.9 Gastro-esophageal reflux disease without esophagitis; E66.3 Overweight

== ENCOUNTER → 2025-01-23 13:28 | Outpatient (BNVA) | payer OTHER, MEDICARE, SELFPAY | PROVIDERS: PCP Internal Medicine; Visit Provider Internal Medicine | DX: I10 Essential (primary) hypertension (principal); E78.2 Mixed hyperlipidemia; I25.10 Atherosclerotic heart disease of native coronary artery without angina pectoris; M51.360 Other intervertebral disc degeneration, lumbar region with discogenic back pain only; K21.9 Gastro-esophageal reflux disease without esophagitis; E78.00 Pure hypercholesterolemia, unspecified; E53.8 Deficiency of other specified B group vitamins; N40.0 Benign prostatic hyperplasia without lower urinary tract symptoms; D64.9 Anemia, unspecified; R30.0 Dysuria; E55.9 Vitamin D deficiency, unspecified; E66.3 Overweight; Z68.26 Body mass index [BMI] 26.0-26.9, adult | CPT/HCPCS: 96127 ==

== ENCOUNTER 2025-01-31 08:34 | Outpatient (REF) | payer OTHER, SELFPAY ==
--- NOTE | ~2025-01-31 | XR_ITS ---
EXAMINATION: XR KNEE, LEFT CLINICAL INFORMATION: M25.562 - Pain in left knee COMPARISON: December 15, 2023 TECHNIQUE: Three views of the left knee. FINDINGS: Prosthetic components of the total knee arthroplasty are appropriately aligned without periprosthetic fracture or abnormal lucency. No component migration. There is mild lateral patellar tilt No joint effusion. XR/XR knee LT 3V IMPRESSION: There is mild lateral patellar tilt. Total knee arthroplasty is unremarkable otherwise. Electronically signed by: Cruz Gonzalez MD 01/31/2025 10:27 AM EDT
--- OUTSIDE RECORDS SUMMARY | 2025-02-01 09:39 | XMS_ITS | Encounter Summary ---
Author Organization [employer] Address [address] [place] [address] [address] [place] [address] Care Team Providers Care [facility] Name Role Phone Unavailable Primary Care Provider [...]
--- OUTSIDE RECORDS SUMMARY | 2025-02-01 09:39 | XMS_ITS | Clinical Summary ---
Author Organization [employer] Address [address] [facility] [address]t [place] [address] Care Team Providers Care Director Of Strategic Initiatives Name Role Phone Unavailable Primary Care Provider [...]
--- OUTSIDE RECORDS SUMMARY | 2025-02-01 09:39 | XMS_ITS | Clinical Summary ---
Author Organization [facility] Address [address] [address] Phone Care Team Providers Care Yardage Caller Name Role Phone Harika Llamas MD Primary Care Provider danielle [email or web address] No known active allergies Medications aspirin [...] disease invo lving coronary bypass graft of [place] heart without angina pectoris 05/08/2017 Assessment & [...] weeks post coronary artery bypass grafting at [facility]. He had some minor postoperative issues which [...] Blood pressure today is normal. Atherosclerosis of [place] co ronary artery of [place] heart with unstable angina pectoris 03/20/2017 Assessment [...] obtuse marginal. I like him evaluated by [facility]. Patient is in agreement. We will [...] precluded surgery for some time. CAD in [place] artery 03/14/2017 Chest pain 03/13/2017 Assessment & [...] file Insurance MEDICARE PART A & B [facility] MEDICARE SUPPLEMENT MEDICARE PART A & B Member Subscriber Plan / Payer (Ef fective 2009-Present) Name:Anuj Temple Member ID:[id number] Relation to Subscriber:Self Name:Anuj Temple Subscriber ID:[id number] Payer ID:[id number] Group ID:Not on file Type:Medicare Address: [employer] [address] MEDICARE SUPPLEMENT MEDICARE PART A & B MEDICARE SUPPLEMENT MEDICARE PART A & B MEDICARE SUPPLEMENT MEDICARE PART A & B Member Subscriber Plan / Payer (Ef fective 2009-Present) Name:Anuj Temple Member ID:[id number] Relation to Subscriber:Self Name:Anuj Temple Subscriber ID:[id number] Payer ID:[id number] Group ID:Not on file Type:Medicare Address: [facility] [employer] [facility] [employer] [facility] [address] [place] [address] MEDICARE SUPPLEMENT MEDICARE PART A & B Member Subscriber Plan / Payer (Ef fective 2009-Present) Name:Anuj Temple Member ID:[id number] Relation to Subscriber:Self Name:Anuj Temple Subscriber ID:[id number] Payer ID:[id number] Group ID:Not on file Type:Medicare Address: [employer] [address] MEDICARE SUPPLEMENT MEDICARE PART A & B MEDICARE SUPPLEMENT MEDICARE PART A & B Member Subscriber Plan / Payer (Ef fective 2009-Present) Name:Anuj Temple Member ID:[id number] Relation to Subscriber:Self Name:Anuj Temple Subscriber ID:[id number] Payer ID:[id number] Group ID:Not on file Type:Medicare Address: [employer] [address] MEDICARE SUPPLEMENT MEDICARE PART A & B MEDICARE SUPPLEMENT [employer] MEDICARE PART A & B [facility] MEDICARE SUPPLEMENT Advance Directives For more information, please contact: [phone] (9AM - 5PM Terri/[facility], Thursday-Thursday) * Full Code (Confirmed) (Latest Code Status on File) Date Activated Date Inactivated Comments 03/14/2017 12:03 AM 03/14/2017 4:21 PM Question Answer Comments Code Discussion Comments: patient Care Teams Yardage Caller Relationship Specialty Start Date End Date Harika Llamas MD [email or web address] PCP - General Family Medicine 03/13/17 Additional Source Comments The information contained in this document represents components of the legal health record. It is not the complete legal health record[facility]
--- OUTSIDE RECORDS SUMMARY | 2025-02-01 09:39 | XMS_ITS | Clinical Summary ---
Author Organization [facility] Address [address] [place] [address] Care Team Providers Care Housecleaner Name Role Phone Sri Curtis MD Unavailable Alan Angela MD Unavailable [phone] Pcp, No Primary Care Provider Unavailabl [...] to complete this topic Insurance [facility] MEDICARE PART A & B Advance Directives * Full Code (Latest Code Status on File) Date Activated Date Inactivated Comments 04/08/2017 5:20 PM Care Teams Housecleaner Relationship Specialty Start Date End Date Pcp, No PCP - General General Medicine 04/20/17 Sri Curtis MD Data Systems Analyst Cardiovascular Disease 03/23/17 Alan Angela MD [address] [place] [address] Surgeon Surgery, Cardiac 03/23/17
--- OUTSIDE RECORDS SUMMARY | 2025-02-01 09:39 | XMS_ITS | Encounter Summary ---
Author Organization [facility] Address [address] [place] [address] Care Team Providers Care Well Puller Head Name Role Phone Pcp, No Primary Care Provider Unavailabl e Sri Curtis MD Unavailable Alan Angela MD Unavailable [phone] Ander Buck MD PhD Primary Care Provider [phone] Pcp, No Primary Care Provider Unavailabl e Encounter Details Date Type Department Care Team (Late st Contact Info) Description 03/23/2017 Abstract [facility] [place] [address] Bess May, RN [address] [place] [address] CAD, multiple vessel Social History Tobacco Use [...] vessel documented in this encounter Care Teams Well Puller Head Relationship Specialty Start Date End Date Pcp, No PCP - General General Medicine 03/20/17 03/26/17 Ander Buck MD PhD [address] [place] [address] PCP - General Family Medicine 03/27/17 03/28/17 Pcp, No PCP - General General Medicine 04/20/17 Sri Curtis MD Grain Scooper Cardiovascular Disease 03/23/17 Alan Angela MD [address] [place] [address] Surgeon Surgery, Cardiac 03/23/17 documented as of this encounter
--- OUTSIDE RECORDS SUMMARY | 2025-02-01 09:39 | XMS_ITS | Encounter Summary ---
Author Organization [facility] Address [address] [place] [address] Care Team Providers Care Icer Machine Operator Name Role Phone Pcp, No Primary Care Provider Unavailabl e Sri Curtis MD Unavailable Alan Angela MD Unavailable [phone] Ander Buck MD PhD Primary Care Provider [phone] Pcp, No Primary Care Provider Unavailabl e Encounter Details Date Type Department Care Team (Latest Contact Info) Description 03/26/2017 Prep for Surgery [facility] [place] [address] Bess May, RN [address] [place] [address] CAD, multiple vessel (Primary Dx); Preop testing; [...] more information on this test, go to: http://education.IMNEXT/faq/MKM409 Blood specimen (specimen) Blood specimen / Unknown 03/27/2017 1:00 PM EST 03/27/2017 1:00 PM EST Narrative [facility] - 03/28/2017 4:48 AM EST FASTING:NO Resulting Agency Comment Performing Organization Information: Site ID: [id number] Name: [facility] Address: [address] [place] [address], [place] [address] Director: Camelia Bassett MD us Alan Angela MD LAB BLOOD ORDERABLES Final Res ult [facility] [address] [place] [address], [facility] [place] [address] * Complete Blood Count, with [...] Performing Organization Information: Site ID: [id number] Name: [facility] Address: [address] [place] [id number] Director: Camelia Bassett MD us Alan Angela MD LAB BLOOD ORDERABLES Final Res ult [facility] [address] [place] [address] * (ABNORMAL) Basic Metabolic Panel (03/27/2017 [...] approximately 13% higher for people identified as -Slovak. eGFR Non- 80 > OR = 60 [...] Performing Organization Information: Site ID: [id number] Name: [facility] Address: [address] [place] [address], [place] [address] Director: Camelia Bassett MD Alan Angela MD LAB BLOOD ORDERABLES Final Res ult [facility] [address] [place] [address], [place] [address] documented in this encounter Visit Diagnoses Diagnosis CAD, multiple vessel- Primary Preop testing Unspecified pre-operative examination Angina effort Other and unspecified angina pectoris documented in this encounter Care Teams Icer Machine Operator Relationship Specialty Start Date End Date Pcp, No PCP - General General Medicine 03/20/17 03/26/17 Ander Buck MD PhD [address] [place] [address] PCP - General Family Medicine 03/27/17 03/28/17 Pcp, No PCP - General General Medicine 04/20/17 Sri Curtis MD Grape Cutter Cardiovascular Disease 03/23/17 Alan Angela MD [address] [place] [address] Surgeon Surgery, Cardiac 03/23/17 documented as of this encounter
--- OUTSIDE RECORDS SUMMARY | 2025-02-01 09:39 | XMS_ITS | Encounter Summary ---
Author Organization [facility] Address [address] [place] [address] Care Team Providers Care Oracle E Business Developer Name Role Phone Sri Curtis MD Unavailable Alan Angela MD Unavailable [phone] Pcp, No Primary Care Provider Unavailabl e Encounter Details Date Type Department Care Team (Late st Contact Info) Description 04/16/2017 Abstract [facility] [place] [address] Bess May, ALLAN [address] [place] [address] Social History Tobacco Use Types Packs/Day Years [...] on filedocumented in this encounter Care Teams Oracle E Business Developer Relationship Specialty Start Date End Date Pcp, No PCP - General General Medicine 04/20/17 Sri Curtis MD Steam Fitter Supervisor Maintenance Cardiovascular Disease 03/23/17 Alan Angela MD [address] [place] [address] Surgeon Surgery, Cardiac 03/23/17 documented as of this encounter
== END 2025-01-31 08:35 | disposition home or self-care (01) ==
LOC: HO.HOSX 08:34
PROVIDERS: Visit Provider Orthopaedic Surgery
DX: M25.562 Pain in left knee (principal); Z96.652 Presence of left artificial knee joint
CPT/HCPCS: 73562

== ENCOUNTER → 2025-01-31 10:16 | Outpatient (BNV) | payer OTHER, MEDICARE, SELFPAY | PROVIDERS: Visit Provider Radiology Diagnostic Radiology | DX: M25.562 Pain in left knee (principal); Z96.652 Presence of left artificial knee joint | CPT/HCPCS: 73562 ==

== ENCOUNTER 2025-01-31 10:17 | Outpatient (AMB) | payer OTHER, MEDICARE, SELFPAY ==
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
[2025-01-31 10:25] VITALS: BMI 26.0
--- OUTSIDE RECORDS SUMMARY | 2025-01-31 12:30 | XMS_ITS | Encounter Summary ---
Author Organization [facility] Address [address] [place] [address] Care Team Providers Care Area Captain Name Role Phone Pcp, No Primary Care Provider Unavailabl e Sri Curtis MD Unavailable Alan Angela MD Unavailable [phone] Ander Buck MD PhD Primary Care Provider [phone] Pcp, No Primary Care Provider Unavailabl e Encounter Details Date Type Department Care Team (Late st Contact Info) Description 03/23/2017 Abstract [facility] [place] [address] Bess May, RN [address] [place] [address] CAD, multiple vessel Social History Tobacco Use [...] vessel documented in this encounter Care Teams Area Captain Relationship Specialty Start Date End Date Pcp, No PCP - General General Medicine 03/20/17 03/26/17 Ander Buck MD PhD [address] [address] PCP - General Family Medicine 03/27/17 03/28/17 Pcp, No PCP - General General Medicine 04/20/17 Sri Curtis MD Community Liaison Officer Cardiovascular Disease 03/23/17 Alan Angela MD [address] [place] [address] Surgeon Surgery, Cardiac 03/23/17 documented as of this encounter
--- OUTSIDE RECORDS SUMMARY | 2025-01-31 12:30 | XMS_ITS | Encounter Summary ---
Author Organization [facility] Address [address] [place] [address] Care Team Providers Care Oil Field Laborer Name Role Phone Sri Curtis MD Unavailable Alan Angela MD Unavailable [phone] Pcp, No Primary Care Provider Unavailabl e Encounter Details Date Type Department Care Team (Late st Contact Info) Description 04/16/2017 Abstract [facility] [place] [address] Bess May, ALLAN [address] [place] [address] Social History Tobacco Use Types Packs/Day Years [...] on filedocumented in this encounter Care Teams Oil Field Laborer Relationship Specialty Start Date End Date Pcp, No PCP - General General Medicine 04/20/17 Sri Curtis MD Otologist Cardiovascular Disease 03/23/17 Alan Angela MD [address] [place] [address] Surgeon Surgery, Cardiac 03/23/17 documented as of this encounter
--- OUTSIDE RECORDS SUMMARY | 2025-01-31 12:30 | XMS_ITS | Clinical Summary ---
Author Organization [facility] Address [address] [address] Phone Care Team Providers Care Multimedia Production Assistant Name Role Phone Harika Llamas MD Primary Care Provider [email or web address] No known active allergies Medications aspirin [...] disease invo lving coronary bypass graft of enterprise heart without angina pectoris 05/08/2017 Assessment & [...] weeks post coronary artery bypass grafting at [facility]. He had some minor postoperative issues which [...] Blood pressure today is normal. Atherosclerosis of enterprise co ronary artery of enterprise heart with unstable angina pectoris 03/20/2017 Assessment [...] obtuse marginal. I like him evaluated by [facility]. Patient is in agreement. We will [...] precluded surgery for some time. CAD in enterprise artery 03/14/2017 Chest pain 03/13/2017 Assessment & [...] file Insurance MEDICARE PART A & B [facility] MEDICARE SUPPLEMENT MEDICARE PART A & B Member Subscriber Plan / Payer (Ef fective 2009-Present) Name:Anuj Temple Member ID:[id number] Relation to Subscriber:Self Name:Anuj Temple Subscriber ID:[id number] Payer ID:[id number] Group ID:Not on file Type:Medicare Address: [employer] [address] MEDICARE SUPPLEMENT MEDICARE PART A & B MEDICARE SUPPLEMENT MEDICARE PART A & B MEDICARE SUPPLEMENT MEDICARE PART A & B Member Subscriber Plan / Payer (Ef fective 2009-Present) Name:nAuj Temple Member ID:[id number] Relation to Subscriber:Self Name:Anuj Temple Subscriber ID:[id number] Payer ID:[id number] Group ID:Not on file Type:Medicare Address: [facility] [employer] [facility] [address] [place] [address] MEDICARE SUPPLEMENT MEDICARE PART A & B Member Subscriber Plan / Payer (Ef fective 2009-Present) Name:Anuj Temple Member ID:[id number] Relation to Subscriber:Self Name:Anuj Temple Subscriber ID:[id number] Payer ID:[id number] Group ID:Not on file Type:Medicare Address: [employer] [address] MEDICARE SUPPLEMENT MEDICARE PART A & B MEDICARE SUPPLEMENT MEDICARE PART A & B Member Subscriber Plan / Payer (Ef fective 2009-Present) Name:Anuj Temple Member ID:[id number] Relation to Subscriber:Self Name:Anuj Temple Subscriber ID:[id number] Payer ID:[id number] Group ID:Not on file Type:Medicare Address: [employer] [address] MEDICARE SUPPLEMENT MEDICARE PART A & B MEDICARE SUPPLEMENT [employer] MEDICARE PART A & B [facility] MEDICARE SUPPLEMENT Advance Directives For more information, please contact: [phone] (9AM - 5PM [facility], Thursday-Thursday) * Full Code (Confirmed) (Latest Code Status on File) Date Activated Date Inactivated Comments 03/14/2017 12:03 AM 03/14/2017 4:21 PM Question Answer Comments Code Discussion Comments: patient Care Teams Multimedia Production Assistant Relationship Specialty Start Date End Date Harika Llamas MD [email or web address] PCP - General Family Medicine 03/13/17 Additional Source Comments The information contained in this document represents components of the legal health record. It is not the complete legal health record.[facility]
--- OUTSIDE RECORDS SUMMARY | 2025-01-31 12:30 | XMS_ITS | Encounter Summary ---
Author Organization [facility] Address [address] [place] [address] Care Team Providers Care Manager Department Name Role Phone Pcp, No Primary Care Provider Unavailabl e Sri Curtis MD Unavailable Alan Angela MD Unavailable [phone] Ander Buck MD PhD Primary Care Provider [phone] Pcp, No Primary Care Provider Unavailabl e Encounter Details Date Type Department Care Team (Latest Contact Info) Description 03/26/2017 Prep for Surgery [facility] [place] [address] Bess May, RN [address] [place] [address] CAD, multiple vessel (Primary Dx); Preop testing; [...] more information on this test, go to: http://education.[employer]/faq/MAQ085 Blood specimen (specimen) Blood specimen / Unknown 03/27/2017 1:00 PM EST 03/27/2017 1:00 PM EST Narrative [facility] - 03/28/2017 4:48 AM EST FASTING:NO Resulting Agency Comment Performing Organization Information: Site ID: [id number] Name: [facility] [employer] Address: [address] [place] [address], [place] [address] Director: Camelia Bassett MD us Alan Angela MD LAB BLOOD ORDERABLES Final Res ult [facility] [address] [place] [address], [facility] [place] [address] * Complete Blood Count, with [...] Performing Organization Information: Site ID: [id number] Name: [employer] Address: [address] [place] [address] Director: Camelia Bassett MD us Alan Angela MD LAB BLOOD ORDERABLES Final Res ult [facility] [address] [place] [address] * (ABNORMAL) Basic Metabolic Panel (03/27/2017 [...] approximately 13% higher for people identified as -Egyptian. eGFR Non- 80 > OR = 60 [...] Performing Organization Information: Site ID: [id number] Name: [facility] Address: [address] [place] [address], [place] [address] Director: Camelia Bassett MD Alan Angela MD LAB BLOOD ORDERABLES Final Res ult [facility] [address] [place] [address], [place] [address] documented in this encounter Visit Diagnoses Diagnosis CAD, multiple vessel- Primary Preop testing Unspecified pre-operative examination Angina effort Other and unspecified angina pectoris documented in this encounter Care Teams Manager Department Relationship Specialty Start Date End Date Pcp, No PCP - General General Medicine 03/20/17 03/26/17 Ander Buck MD PhD [address] [place] [address] PCP - General Family Medicine 03/27/17 03/28/17 Pcp, No PCP - General General Medicine 04/20/17 Sri Curtis MD Rebar Bender Cardiovascular Disease 03/23/17 Alan Angela MD [address] [place] [address] Surgeon Surgery, Cardiac 03/23/17 documented as of this encounter
--- OUTSIDE RECORDS SUMMARY | 2025-01-31 12:30 | XMS_ITS | Clinical Summary ---
Author Organization [facility] Address [address] [place] [address] Care Team Providers Care Professor Of Religion Name Role Phone Sri Curtis MD Unavailable Alan Angela MD Unavailable [phone] Pcp, No Primary Care Provider Unavailabl [...] age to complete this topic Insurance [facility] MEDICARE PART A & B Advance Directives * Full Code (Latest Code Status on File) Date Activated Date Inactivated Comments 04/08/2017 5:20 PM Care Teams Professor Of Religion Relationship Specialty Start Date End Date Pcp, No PCP - General General Medicine 04/20/17 Sri Curtis MD Pay Station Attendant Cardiovascular Disease 03/23/17 Alan Angela MD [address] [place] [address] Surgeon Surgery, Cardiac 03/23/17
== END 2025-01-31 10:49 | disposition home or self-care (01) ==
LOC: HO.HOS 10:18
PROVIDERS: Visit Provider Orthopaedic Surgery
DX: M25.562 Pain in left knee (principal)
CPT/HCPCS: 99213; G2211

== ENCOUNTER 2025-02-01 09:04 | Outpatient (REF) | payer OTHER, MEDICARE, SELFPAY ==
[2025-02-01 09:29] LABS: MANUAL DIFF FLAG NO
[2025-02-01 09:42] LABS: Hematocrit 39.7 % (42.0-52.0); Hemoglobin 13.2 g/dl (14.0-18.0); Imm Gran Abs Auto 0.02 X10*3/uL (0.00-0.03); Imm Gran Pct Auto 0.3 % (0.0-0.4); Lymphocytes Absolute Auto 1.6 X10*3/uL (1.2-4.9); Mean Corpuscular HGB Conc 33.2 g/dl (31.0-36.0); Mean Corpuscular Hemoglobin 30.5 pg (27.0-33.0); Mean Corpuscular Volume 91.7 fL (80.0-98.0); NRBC Abs Auto 0.000 X10*3/uL (0.0-0.012); NRBC Pct Auto 0.0 /100WBC (0.0-0.2); Platelet Count 223 X10*3/uL (160-400); Red Blood Count 4.33 X10*6/uL (4.60-5.80); White Blood Count 5.9 X10*3/uL (4.8-10.8)
[2025-02-01 10:08] LABS: Appearance Urine Clear; Glucose Urine UA Negative (Negative); PH 6.5 (5.0-9.0); Specific Gravity - Urine 1.015 (1.005-1.025)
[2025-02-01 10:31] LABS: Alanine Aminotransferase 12 U/L (0-40); Albumin Level 4.1 g/dL (3.5-5.0); Alkaline Phosphatase 92 U/L (39-117); Anion Gap 9 (12-20); Aspartate Amino Transferase 24 U/L (5-37); Blood Urea Nitrogen 15 mg/dL (9-16); Calcium 8.8 mg/dL (8.4-10.2); Carbon Dioxide 31 mmol/L (22-29); Chloride 105 mmol/L (96-108); Cholesterol 133 mg/dL (<200); Estimated Glomerular Filt Rate > 60; HDL Cholesterol 30 mg/dL (>40); Potassium 3.9 mmol/L (3.3-5.1); Sodium 141 mmol/L (135-145); Total Protein 6.9 g/dL (6.5-8.0); Triglycerides 85 mg/dL (<150)
[2025-02-01 11:03] LABS: Folate 7.5 ng/mL (> or = 4.0); Prostate Specific Antigen 1.28 ng/mL (<0.05-4.0); Vitamin B12 291 pg/mL (200-900)
== END 2025-02-01 09:05 | disposition home or self-care (01) ==
LOC: HO.LAB 09:04
PROVIDERS: PCP Internal Medicine; Visit Provider Internal Medicine
DX: Z12.5 Encounter for screening for malignant neoplasm of prostate (principal); N40.0 Benign prostatic hyperplasia without lower urinary tract symptoms; E78.00 Pure hypercholesterolemia, unspecified; E53.8 Deficiency of other specified B group vitamins; D64.9 Anemia, unspecified; R30.0 Dysuria; E55.9 Vitamin D deficiency, unspecified
CPT/HCPCS: 36415; 80053; 80061; 81003; 82306; 82607; 82746; 84153; 84443; 85025

== ENCOUNTER 2025-05-10 12:51 | Outpatient (AMB) | payer MEDICARE, OTHER, SELFPAY ==
[2025-05-10 12:53] VITALS: BP 150/82; PULSE 98; O2SAT 95; BMI 26.2
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
[2025-05-10 13:39] VITALS: BP 138/78
--- OUTSIDE RECORDS SUMMARY | 2025-05-10 14:27 | XMS_ITS | Encounter Summary ---
Author Organization [facility] Address [address] [place] [address] Care Team Providers Care Manager Renewable Energy Name Role Phone Pcp, No Primary Care Provider Unavailabl e Sri Curtis MD Unavailable Alan Angela MD Unavailable [phone] Ander Buck MD PhD Primary Care Provider [phone] Pcp, No Primary Care Provider Unavailabl e Encounter Details Date Type Department Care Team (Late st Contact Info) Description 03/23/2017 Abstract [facility] [place] [address] Bess May, RN [address] [place] [address] CAD, multiple vessel Social History Tobacco Use [...] vessel documented in this encounter Care Teams Manager Renewable Energy Relationship Specialty Start Date End Date Pcp, No PCP - General General Medicine 03/20/17 03/26/17 Ander Buck MD PhD [address] [place] [address] PCP - General Family Medicine 03/27/17 03/28/17 Pcp, No PCP - General General Medicine 04/20/17 Sri Curtis MD Sales Representative [employer] Cardiovascular Disease 03/23/17 Alan Angela MD [address] [place] [address] Surgeon Surgery, Cardiac 03/23/17 documented as of this encounter
--- OUTSIDE RECORDS SUMMARY | 2025-05-10 14:27 | XMS_ITS | Clinical Summary ---
Author Organization [employer] Address [address] [facility] [address] [place] [address] Care Team Providers Care Ramp Service Man Name Role Phone Unavailable Primary Care Provider [...] 75+ series) 07/25/2019 COVID-19 Vaccine (1 - 2024-2 6 season) 2025 Influenza Vaccine (#1) 2025 HIB [...]
--- OUTSIDE RECORDS SUMMARY | 2025-05-10 14:27 | XMS_ITS | Clinical Summary ---
Author Organization [facility] Address [address] [address] Phone Care Team Providers Care Orthotist Or Prosthetist Name Role Phone Harika Llamas MD Primary Care Provider [email or web address] [email or web address] [email or web address] No known active allergies Medications aspirin [...] disease invo lving coronary bypass graft of [place] heart without angina pectoris 05/08/2017 Assessment & [...] weeks post coronary artery bypass grafting at [facility]. He had some minor postoperative issues which [...] Blood pressure today is normal. Atherosclerosis of [place] co ronary artery of [place] heart with unstable angina pectoris 03/20/2017 Assessment [...] obtuse marginal. I like him evaluated by [facility]. Patient is in agreement. We will [...] precluded surgery for some time. CAD in [place] artery 03/14/2017 Chest pain 03/13/2017 Assessment & [...] file Insurance MEDICARE PART A & B [facility] MEDICARE SUPPLEMENT MEDICARE PART A & B Member Subscriber Plan / Payer (Ef fective 2009-Present) Name:Anuj Temple Member ID:[id number] Relation to Subscriber:Self Name:Anuj Temple Subscriber ID:[id number] Payer ID:[id number] Group ID:Not on file Type:Medicare Address: [employer] [address] MEDICARE SUPPLEMENT MEDICARE PART A & B MEDICARE SUPPLEMENT MEDICARE PART A & B MEDICARE SUPPLEMENT MEDICARE PART A & B MEDICARE SUPPLEMENT MEDICARE PART A & B Member Subscriber Plan / Payer (Ef fective 2009-Present) Name:Anuj Temple Member ID:[id number] Relation to Subscriber:Self Name:Anuj Temple Subscriber ID:[id number] Payer ID:[id number] Group ID:Not on file Type:Medicare Address: [employer] [address] MEDICARE SUPPLEMENT MEDICARE PART A & B MEDICARE SUPPLEMENT MEDICARE PART A & B Member Subscriber Plan / Payer (Ef fective 2009-Present) Name:Anuj Temple Member ID:[id number] Relation to Subscriber:Self Name:Anuj Temple Subscriber ID:[id number] Payer ID:[id number] Group ID:Not on file Type:Medicare Address: [employer] [address] MEDICARE SUPPLEMENT MEDICARE PART A & B MEDICARE SUPPLEMENT [employer] MEDICARE PART A & B [facility] MEDICARE SUPPLEMENT Advance Directives For more information, please contact: [phone] (9AM - 5PM Terri/[facility], Thursday-Thursday) * Full Code (Confirmed) (Latest Code Status on File) Date Activated Date Inactivated Comments 03/14/2017 12:03 AM 03/14/2017 4:21 PM Question Answer Comments Code Discussion Comments: patient Care Teams Orthotist Or Prosthetist Relationship Specialty Start Date End Date Harika Llamas MD [email or web address] PCP - General Family Medicine 03/13/17 Additional Source Comments The information contained in this document represents components of the legal health record. It is not the complete legal health record.[facility]
--- OUTSIDE RECORDS SUMMARY | 2025-05-10 14:27 | XMS_ITS | Clinical Summary ---
Author Organization [facility] Address [address] [place] [address] Care Team Providers Care Manager Resource Name Role Phone Sri Curtis MD Unavailable Alan Angela MD Unavailable [phone] Pcp, No Primary Care Provider Unavailabl [...] Vaccine (1 of 2) 1994 RSV Vaccine 50 years and old er and Patients (1 - 1-dose 75+ series) 07/25/2019 Influenza Vaccine 12/09/2024 COVID-19 Vaccine (2024-2 6 season) 2025 Hepatitis B Vaccines Aged Out No long er eligible based on patient's age to complete this topic Insurance [facility] MEDICARE PART A & B Advance Directives * Full Code (Latest Code Status on File) Date Activated Date Inactivated Comments 04/08/2017 5:20 PM Care Teams Manager Resource Relationship Specialty Start Date End Date Pcp, No PCP - General General Medicine 04/20/17 Sri Curtis MD Readers' Advisory Service Librarian Cardiovascular Disease 03/23/17 Alan Angela MD [address] [place] [address] Surgeon Surgery, Cardiac 03/23/17
--- OUTSIDE RECORDS SUMMARY | 2025-05-10 14:27 | XMS_ITS | Encounter Summary ---
Author Organization [facility] Address [address] [place] [address] Care Team Providers Care Harness Placer Name Role Phone Pcp, No Primary Care Provider Unavailabl e Sri Curtis MD Unavailable Alan Angela MD Unavailable [phone] Ander Buck MD PhD Primary Care Provider [phone] Pcp, No Primary Care Provider Unavailabl e Encounter Details Date Type Department Care Team (Latest Contact Info) Description 03/26/2017 Prep for Surgery [facility] [place] [address] Bess May, RN [address] [place] [address] CAD, multiple vessel (Primary Dx); Preop testing; [...] more information on this test, go to: http://education.[employer]/faq/VLI876 Blood specimen (specimen) Blood specimen / Unknown 03/27/2017 1:00 PM EST 03/27/2017 1:00 PM EST Narrative [facility] - 03/28/2017 4:48 AM EST FASTING:NO Resulting Agency Comment Performing Organization Information: Site ID: [id number] Name: [facility] Address: [address] [place] [address], [place] [address] Director: Camelia Bassett MD us Alan Angela MD LAB BLOOD ORDERABLES Final Res ult [facility] [address] [place] [address], [facility] [place] [address] * Complete Blood Count, with [...] Performing Organization Information: Site ID: [id number] Name: [facility] Address: [address] [place] [id number] Director: Camelia Bassett MD us Alan Angela MD LAB BLOOD ORDERABLES Final Res ult [facility] [address] [place] [address] * (ABNORMAL) Basic Metabolic Panel (03/27/2017 [...] approximately 13% higher for people identified as -English. eGFR Non- 80 > OR = 60 [...] Performing Organization Information: Site ID: [id number] Name: [facility] Address: [address] [place] [address], [place] [address] Director: Camelia Bassett MD Alan Angela MD LAB BLOOD ORDERABLES Final Res ult [facility] [address] [place] [address], [place] [address] documented in this encounter Visit Diagnoses Diagnosis CAD, multiple vessel- Primary Preop testing Unspecified pre-operative examination Angina effort Other and unspecified angina pectoris documented in this encounter Care Teams Harness Placer Relationship Specialty Start Date End Date Pcp, No PCP - General General Medicine 03/20/17 03/26/17 Ander Buck MD PhD [address] [place] [address] PCP - General Family Medicine 03/27/17 03/28/17 Pcp, No PCP - General General Medicine 04/20/17 Sri Curtis MD Masking Machine Feeder Cardiovascular Disease 03/23/17 Alan Angela MD [address] [place] [address] Surgeon Surgery, Cardiac 03/23/17 documented as of this encounter
--- OUTSIDE RECORDS SUMMARY | 2025-05-10 14:27 | XMS_ITS | Encounter Summary ---
Author Organization [facility] Address [address] [place] [address] Care Team Providers Care Director Of Hospitality Name Role Phone Sri Curtis MD Unavailable Alan Angela MD Unavailable [phone] Pcp, No Primary Care Provider Unavailabl e Encounter Details Date Type Department Care Team (Late st Contact Info) Description 04/16/2017 Abstract [facility] [place] [address] Bess May, ALLAN [address] [place] [address] Social History Tobacco Use Types Packs/Day Years [...] on filedocumented in this encounter Care Teams Director Of Hospitality Relationship Specialty Start Date End Date Pcp, No PCP - General General Medicine 04/20/17 Sri Curtis MD Lace Roller Cardiovascular Disease 03/23/17 Alan Angela MD [address] [place] [address] Surgeon Surgery, Cardiac 03/23/17 documented as of this encounter
--- OUTSIDE RECORDS SUMMARY | 2025-05-10 14:27 | XMS_ITS | Encounter Summary ---
Author Organization [employer] Address [address] [place] [address] [address] [place] [address] Care Team Providers Care Equipment Operation Instructor Name Role Phone Unavailable Primary Care Provider [...]
== END 2025-05-10 13:46 | disposition home or self-care (01) ==
LOC: HO.HMCH 12:52
PROVIDERS: PCP Internal Medicine; Visit Provider Internal Medicine
DX: I10 Essential (primary) hypertension (principal); E78.2 Mixed hyperlipidemia; I25.10 Atherosclerotic heart disease of native coronary artery without angina pectoris; R05.8 Other specified cough; R42 Dizziness and giddiness; M51.360 Other intervertebral disc degeneration, lumbar region with discogenic back pain only; K21.9 Gastro-esophageal reflux disease without esophagitis; E66.3 Overweight

== ENCOUNTER → 2025-05-10 12:51 | Outpatient (BNVA) | payer OTHER, MEDICARE, SELFPAY | PROVIDERS: PCP Internal Medicine; Visit Provider Internal Medicine | DX: I10 Essential (primary) hypertension (principal); E78.2 Mixed hyperlipidemia; I25.10 Atherosclerotic heart disease of native coronary artery without angina pectoris; R05.8 Other specified cough; R42 Dizziness and giddiness; M51.360 Other intervertebral disc degeneration, lumbar region with discogenic back pain only; K21.9 Gastro-esophageal reflux disease without esophagitis; E66.3 Overweight; Z13.31 Encounter for screening for depression; Z09 Encounter for follow-up examination after completed treatment for conditions other than malignant neoplasm | CPT/HCPCS: 96127; 99212 ==